=== PATIENT | male | born 1990 | race Hispanic/Latino ===

== ENCOUNTER 2018-01-30 15:10 | Outpatient (CLI) | payer OTHER ==
[2018-01-30 16:35] LABS: Hemoglobin 10.8 g/dL (14.0-18.0); Mean Corpuscular HGB CONC 32.8 g/dL (32.0-36.0); Mean Corpuscular Hemoglobin 30.1 pg (27.0-31.0); Mean Corpuscular Volume 91.6 fl (80.0-94.0); Mean Platelet Volume 7.5 fL (7.4-10.4); Platelet Count 120 thou/uL (130-400); RBC Distribution Width 12.1 % (11.5-14.5); White Blood Cell (WBC) Count 3.9 thou/uL (4.8-10.8)
[2018-01-30 16:54] LABS: Anion Gap 13 mmol/L (10-20); BUN (Urea Nitrogen) 62 mg/dL (8.9-20.6); Calc. Creatinine Clearance 0 mL/min (70-130); Calcium 8.8 mg/dL (7.8-10.44); Carbon Dioxide 19 mmol/L (22-29); Chloride 111 mmol/L (98-107); Estimated GFR-MDRD 11; Glucose 80 mg/dL (70-105); Potassium 6.1 mmol/L (3.5-5.1); Sodium 137 mmol/L (136-145)
== END 2018-01-30 15:11 | disposition home or self-care (01) ==
LOC: LABBT 15:10
PROVIDERS: ATTEND Surgery
DX: Z01.812 Encounter for preprocedural laboratory examination (principal); M32.14 Glomerular disease in systemic lupus erythematosus
CPT/HCPCS: 93005; 93010

== ENCOUNTER 2018-02-01 08:10 | Day surgery (SDC) | payer OTHER ==
[2018-01-30 15:37] VITALS: BMI 18.6
[2018-02-01 09:55] LABS: Potassium 5.6 mmol/L (3.5-5.1)
[2018-02-01] MEDS ORDERED: Bupivacaine/Epinephrine 0.25% 30 ML VIAL ONE (11:32)
[2018-02-01] MEDS ORDERED: Fentanyl 100 MCG/2 ML VIAL ONE (11:38)
[2018-02-01] MEDS ORDERED: CEFAZOLIN/Water 2 GM/20 ML SYRINGE ONE (11:42)
[2018-02-01] MEDS ORDERED: Dexamethasone 20 MG/5 ML VIAL ONE ×2 (13:30)
[2018-02-01] MEDS ORDERED: Ondansetron HCl/PF 4 MG/2 ML Vial ONE (13:30)
[2018-02-01] MEDS ORDERED: PROPOFOL 200 MG/20 ML VIAL ONE (13:30)
[2018-02-01] MEDS ORDERED: Lidocaine 1% PF 5 ML VIAL ONE (13:30)
--- NOTE | 2018-02-01 16:10 | PDOC.OP ---
Operative Note - Operative Note Operative Note: PROCEDURE: Removal of tunneled peritoneal dialysis catheter DATE OF PROCEDURE: 02/01/2018 SURGEON: Ezequiel Carr M.D. PREOPERATIVE DIAGNOSES: Unwanted peritoneal dialysis catheter POSTOPERATIVE DIAGNOSIS: Unwanted peritoneal dialysis catheter HISTORY: Mr. Ewing is a 27-year-old man with lupus nephritis and end-stage renal failure. He was on peritoneal dialysis but decided to stop doing this. His glomerular filtration rate is 11 and continuation of dialysis has been recommended by his city detective but the patient adamantly refuses. He has not flushed or care for his catheter in several months and wishes to have it removed. I explained that this is against my medical recommendation that the patient is adamant that he wants it removed and is no longer going to use it. PROCEDURE IN DETAIL: After informed consent was obtained and appropriate preoperative antibiotics administered, the patient was taken to the operating room. He was placed in supine position and general anesthesia by LMA was administered. He was prepped and draped in standard sterile fashion and local anesthesia was infused the skin and subcutaneous tissues around the peritoneal dialysis catheter. A skin incision was made at the catheter site and dissection carried down to the subcutaneous cuff which was dissected free circumferentially. The cuff was then traced down to the anterior rectus muscle. The anterior rectus muscle sheath was incised anteriorly and the muscle split around the catheter. The internal cuff was identified and dissected free of the muscles and the entire catheter removed. This was confirmed to be intact and normal in appearance and was discarded. The operative site was confirmed to be hemostatic and the anterior rectus sheath reapproximated with 0 Vicryl suture under direct vision. The subcutaneous tissues were irrigated and the incision partially closed with 4-0 Monocryl suture. Iodoform packing was placed in the subcutaneous space and a gauze and Tegaderm dressing placed over the PD catheter site. The patient was extubated and taken to the recovery room in good condition. Estimated blood loss was minimal. There were no complications. There were no specimens.
== END 2018-02-01 14:00 | disposition home or self-care (01) ==
LOC: SDC 08:10
PROVIDERS: ATTEND Surgery
PROC: 0WPG03Z Removal of Infusion Device from Peritoneal Cavity, Open Approach (ICD-10-PCS; principal; 2018-02-01)
DX: Z49.02 Encounter for fitting and adjustment of peritoneal dialysis catheter (principal); M32.14 Glomerular disease in systemic lupus erythematosus; N18.6 End stage renal disease; Z79.899 Other long term (current) drug therapy; Z79.52 Long term (current) use of systemic steroids; Z88.8 Allergy status to other drugs, medicaments and biological substances; Z91.15 Patient's noncompliance with renal dialysis
CPT/HCPCS: 84132; J1100; J2001; J2405; J2704; J3010

== ENCOUNTER 2018-06-06 17:40 | Inpatient (IN) | payer OTHER, SELFPAY ==
[2018-06-06 18:22] LABS: #Lymphocytes 0.3 thou/uL (1.20-3.40); #Monocytes 0.1 thou/uL (0.11-0.59); #Neutrophils 1.1 thou/uL (1.40-6.50); %Basophils 0.5 % (0.0-1.0); %Eosinophils 0.9 % (0.0-10.0); %Lymphocytes 17.3 % (21.0-51.0); %Monocytes 5.8 % (0.0-10.0); %Neutrophils 75.6 % (42.0-75.0); Hemoglobin 7.6 g/dL (14.0-18.0); Mean Corpuscular HGB CONC 36.3 g/dL (32.0-36.0); Mean Corpuscular Hemoglobin 31.3 pg (27.0-31.0); Mean Platelet Volume 9.2 fL (7.4-10.4); Platelet Count 42 thou/uL (130-400); RBC Distribution Width 13.3 % (11.5-14.5); Red Blood Cell (RBC) Count 2.42 mill/uL (4.70-6.10); White Blood Cell (WBC) Count 1.5 thou/uL (4.8-10.8)
[2018-06-06 18:46] LABS: INR-International Normal Ratio 1.1; Prothrombin Time 14.6 SEC (12.0-14.7)
[2018-06-06 18:47] LABS: PTT 33.6 SEC (22.9-36.1)
[2018-06-06 18:55] LABS: ALT (SGPT) 10 U/L (8-55); AST (SGOT) 13 U/L (5-34); Albumin 3.6 g/dL (3.5-5.0); Alkaline Phosphatase 48 U/L (40-150); Bilirubin, Total 0.4 mg/dL (0.2-1.2); Chloride 99 mmol/L (98-107); Glucose 91 mg/dL (70-105); Potassium 5.8 mmol/L (3.5-5.1); Protein, Total 5.6 g/dL (6.0-8.3); Sodium 131 mmol/L (136-145)
--- NOTE | 2018-06-06 18:56 | RAD ---
AP VIEW OF THE CHEST: 06/06/18 INDICATION: Shortness of breath and hemodialysis. COMPARISON: Prior exam dated 04/05/16. FINDINGS: Calcification overlies the lower left hemithorax which is stable. The lungs are otherwise clear. No p leural effusion or pneumothorax is evident. Heart size appears within normal limits. Osseous structur es are unchanged from the comparison. IMPRESSION: No acute cardiopulmonary abnormality. POS: [facility]
[2018-06-06 19:27] LABS: Calcium 5.9 mg/dL (7.8-10.44); Carbon Dioxide Less than 8 mmol/L (22-29)
[2018-06-06 19:49] LABS: BUN (Urea Nitrogen) 211 mg/dL (8.9-20.6)
[2018-06-06 19:52] LABS: Calc. Creatinine Clearance 0 mL/min (70-130); Estimated GFR-MDRD 2
[2018-06-06] MEDS ORDERED: Ondansetron HCl/PF 4 MG/2 ML Vial ONE (19:54)
[2018-06-06 23:01] LABS: Hep B Surf Ag Non-Reactive S/CO (NonReactive)
[2018-06-07] MEDS ORDERED: Ondansetron ODT 4 MG TAB SL PRN (00:40)
[2018-06-07] MEDS ORDERED: Ondansetron HCl/PF 4 MG/2 ML Vial IVP PRN ×2 (00:40→05:15)
[2018-06-07] MEDS ORDERED: Iron Sucrose Complex 200 MG in Sodium Chloride 0.9% 250 ML 250 ML IVPB SCH (00:45)
[2018-06-07] MEDS ORDERED: Bisacodyl 5 MG TAB PO PRN (05:15)
[2018-06-07 07:43] LABS: BUN (Urea Nitrogen) 184 mg/dL (8.9-20.6)
[2018-06-07 07:47] LABS: Band 8 % (5-11); Hemoglobin 6.7 g/dL (14.0-18.0); Lymphocytes 16 % (21-51); MDiff Complete? YES; Mean Corpuscular HGB CONC 35.8 g/dL (32.0-36.0); Mean Corpuscular Hemoglobin 30.7 pg (27.0-31.0); Mean Corpuscular Volume 85.7 fL (78.0-98.0); Mean Platelet Volume 9.8 fL (7.4-10.4); Monocytes 2 % (0-10); Neutrophil 74 % (42-75); PLT Morphology Comment Appears Decreased; Platelet Count 38 thou/uL (130-400); Polychromasia SLIGHT = 2-3 cells (100X) (0-2/hpf); RBC Distribution Width 13.5 % (11.5-14.5); Red Blood Cell (RBC) Count 2.19 mill/uL (4.70-6.10); Schistocytes SLIGHT = 2-5 cells (100X) (0-1/hpf); White Blood Cell (WBC) Count 1.1 thou/uL (4.8-10.8)
[2018-06-07 08:39] LABS: Albumin 3.3 g/dL (3.5-5.0); Anion Gap 24 mmol/L (10-20); Calc. Creatinine Clearance 4 mL/min (70-130); Carbon Dioxide 13 mmol/L (22-29); Chloride 102 mmol/L (98-107); Estimated GFR-MDRD 3; Glucose 122 mg/dL (70-105); Phosphorus 12.6 mg/dL (2.3-4.7); Potassium 4.6 mmol/L (3.5-5.1); Sodium 134 mmol/L (136-145)
--- NOTE | 2018-06-07 11:40 | CON ---
DATE OF CONSULTATION: 06/07/2018 SERVICE: Renal Medicine. HISTORY OF PRESENT ILLNESS: Mr. Ewing is a 27-year-old male with known history of ESRD from lupus nephritis. Patient was previously on peritoneal dialysis, but over time decided to discontinue . So, he has been off dialysis for several months. About 6-8 weeks prior to admission, he started d eveloping nausea and vomiting, generalized malaise. Due to the worsening signs and symptoms, he went to the ER and was wanting to go back to dialysis. Due to the uremic signs and symptoms, BUN of more than 200 and a creatinine more than 25, emergent hemodialysis was done last night. He underwent a 1 -hour hemodialysis. I am currently at the bedside supervising his dialysis. He has undergone 2-hour hemodialysis today. I had a long discussion with this patient. We would defer to go back to perito errol dialysis. REVIEW OF SYSTEMS: Positive for nausea and vomiting. Decreased appetite, decreased energy level, no syncopal episode, no tremors, no asterixis, no diarrhea, no constipation, no abdominal pain, no head ache, no diplopia, no sore throat, no joint pains, no new skin rash, no fever or chills, no shortness of breath. MEDICATIONS: Currently, none. PAST MEDICAL HISTORY: 1. 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 2. End-stage renal disease - in remission. PAST SURGICAL HISTORY: 1. Status post kidney biopsy. 2. Status post thoracentesis of pleural effusion secondary to lupus nephritis. 3. Status post left knee replacement. 4. Status post laparoscopic appendectomy for perforated appendix. SOCIAL HISTORY: The patient lives in [place], is single, and lives with his mother. Education, h igh school. Currently, not working. No history of smoking. No IV drug abuse. Status post multiple blood transfusions. Five siblings. ALLERGIES: None. TRAUMA: None. IMMUNIZATIONS: Unknown. HOSPITALIZATIONS: Please see past medical history. FAMILY HISTORY: Positive family history of lupus - father was on dialysis. PHYSICAL EXAMINATION: VITAL SIGNS: Blood pressure is 139/92, heart rate 87, respiratory rate 14, temperature 97.8, pulse o x 99%. GENERAL EXAM: Awake, alert, comfortable, not in distress. SKIN: Adequate turgor. HEENT: Pale conjunctivae. Anicteric sclerae. NECK: No neck mass, no carotid bruits, no JVD. CHEST: No deformities. LUNGS: Clear breath sounds, no wheezing, no crackles. HEART: Normal sinus rhythm. No murmur, no gallops, no rubs. ABDOMEN: Globular, soft, nontender, no masses. EXTREMITIES: No edema, no deformities. LABORATORY DATA: Laboratories of 06/07/2018, white count 1.1, hemoglobin 6.7, hematocrit 8.8. Sodiu m 134, potassium 4.6, chloride 102, carbon dioxide 13, BUN is 184, creatinine 21, glucose 122, calciu m 6, phosphorus is 12. ASSESSMENT AND PLAN: 1. End-stage renal disease/chronic renal failure - emergent hemodialysis done last night. My plan i s to do a 2-hour hemodialysis today with fluid removal only as tolerated. We will do another dialysi s tomorrow. I have consulted Surgery for placement of a cuffed hemodialysis catheter and a PD cathet er at the same time. 2. Anemia. Start Epogen, p.r.n. blood transfusion. 3. Hyperphosphatemia. Start Renvela and Tums. 4. Hypocalcemia. Start on calcitriol and Tums. 5. Secondary hyperparathyroidism. Recheck PTH. I had a long discussion with the patient regarding compliance with dialysis. He would like to go diana on dialysis. I did encourage him to follow up with the renal transplant program.
[2018-06-07] MEDS: Sevelamer Carbonate 800 MG TAB PO SCH ×2 (12:42→17:04)
[2018-06-07] MEDS: Calcitriol 0.25 MCG CAP PO SCH (12:43)
[2018-06-07] MEDS: Calcium Carbonate 500 MG ChewTAB PO SCH (17:04)
[2018-06-07] MEDS: Epoetin (ESRD) 20,000 UNITS/ML SC SCH (17:04)
--- NOTE | 2018-06-07 17:28 | PDOC.PN ---
- Subjective Encounter Start Date: 06/07/18 Encounter Start Time: 17:26 Mr. Ewing was seen today in follow-up of ESRD. He says he had some nausea last night, but is doing better today. - Objective Resuscitation Status: Resuscitation Status FULL:Full Resuscitation MAR Reviewed: Yes Vital Signs & Weight: Vital Signs (12 hours) Temp Pulse Pulse Resp BP BP Pulse Ox 06/07/18 15:47 98.2 F 79 16 141/94 H 99 06/07/18 12:58 98.1 F 87 18 132/89 06/07/18 12:36 97.9 F 78 18 134/88 06/07/18 11:40 98.4 F 79 16 137/87 98 06/07/18 08:00 97.8 F 87 14 06/07/18 07:47 97.8 F 87 14 139/92 H 99 Weight Admit Weight 131 lb 8 oz Weight 131 lb 8 oz I&O: 06/06/18 06/07/18 06/08/18 06:59 06:59 06:59 Intake Total 0 Balance 0 Result Diagrams: 06/07/18 06:47 06/07/18 06:47 Phys Exam - Physical Examination HEENT: PERRLA Respiratory: no wheezing, no rales, no rhonchi, clear to auscultation bilateral Cardiovascular: RRR, no significant murmur, no rub Gastrointestinal: soft, non-tender, positive bowel sounds Musculoskeletal: no edema Dx/Plan (1) End-stage renal disease needing dialysis Code(s): N18.6 - END STAGE RENAL DISEASE; Z99.2 - DEPENDENCE ON RENAL DIALYSIS Status: Acute (2) Systemic lupus Code(s): M32.9 - SYSTEMIC LUPUS ERYTHEMATOSUS, UNSPECIFIED Status: Acute - Plan * ESRD on dialysis- patient had missed several months of dialysis, and has decided to re-start dialysis * SLE- Quiescent . * Dispo as per Nephrology
[2018-06-08 05:32] LABS: Albumin 3.2 g/dL (3.5-5.0); Anion Gap 19 mmol/L (10-20); Calc. Creatinine Clearance 5 mL/min (70-130); Calcium 5.7 mg/dL (7.8-10.44); Carbon Dioxide 19 mmol/L (22-29); Chloride 100 mmol/L (98-107); Estimated GFR-MDRD 3; Glucose 86 mg/dL (70-105); Phosphorus 9.2 mg/dL (2.3-4.7); Sodium 134 mmol/L (136-145)
[2018-06-08 05:35] LABS: #Lymphocytes 0.2 thou/uL (1.20-3.40); #Monocytes 0.1 thou/uL (0.11-0.59); #Neutrophils 0.9 thou/uL (1.40-6.50); %Lymphocytes 13.5 % (21.0-51.0); %Monocytes 11.3 % (0.0-10.0); %Neutrophils 73.3 % (42.0-75.0); Hemoglobin 8.1 g/dL (14.0-18.0); Mean Corpuscular HGB CONC 35.9 g/dL (32.0-36.0); Mean Corpuscular Hemoglobin 30.8 pg (27.0-31.0); Mean Platelet Volume 9.8 fL (7.4-10.4); Platelet Count 37 thou/uL (130-400); Red Blood Cell (RBC) Count 2.64 mill/uL (4.70-6.10); White Blood Cell (WBC) Count 1.2 thou/uL (4.8-10.8)
[2018-06-08 05:37] LABS: BUN (Urea Nitrogen) 136 mg/dL (8.9-20.6)
--- NOTE | 2018-06-08 08:57 | PRG ---
DATE OF SERVICE: 06/08/2018 SUBJECTIVE: Mr. Ewing is a 27-year-old male who was admitted for uremic signs and symptoms. Hemodialysis has been initiated in the last 2 days. He is feeling better. He was also given him 1 unit of blood transfusion. This morning he feels better. He denies any chest pain or shortness of breath. OBJECTIVE: VITAL SIGNS: Blood pressure 148/88, heart rate 92, respiratory rate 16, temperature 98.1, pulse ox 1 00%. GENERAL: Noted to be awake, comfortable, not in overt distress SKIN: Adequate turgor. HEENT: Slightly pale conjunctivae, anicteric sclerae. NECK: No neck mass, no carotid bruits, no JVD. CHEST: No deformities. LUNGS: Clear breath sounds. No wheezing, no crackles. HEART: Normal sinus rhythm. No murmur, no gallops or rubs. ABDOMEN: Globular, soft, nontender, no masses. EXTREMITIES: No edema, no deformities. MEDICATIONS: 06/08/2018 - Reviewed. LABORATORY: 06/08/2018 - White count 1.2, hemoglobin 8.1, hematocrit 22.7, platelet count 37,000. S odium 134, potassium 4, chloride 100, carbon dioxide 19, BUN 136, creatinine 17, calcium 5.7, phospho alfreda is 9.2. PTH is 1301. ASSESSMENT AND PLAN: 1. Hypocalcemia. Patient started on Tums and calcitriol. Continue to observe, the patient is asymp tomatic. 2. Chronic renal failure/end-stage renal disease - dialysis will be initiated. The patient has french ged his mind and wants to continue with the current dialytic intervention. He stopped his dialysis f or several months thinking he might recover. However, he became symptomatically uremic in the last s everal weeks. We will continue current hemodialysis. I have consulted Surgery for placement of a cu ffed hemodialysis catheter as well as a PD catheter. He does have a temporary femoral dialysis otilia ter. 3. Leukopenia/decreased platelets, this could be related to his underlying lupus. We will try to se t him up with his lupus doctor in [place]. 4. Anemia, continuing Epogen regimen, status post blood transfusion. 5. Hyperphosphatemia, started on Renvela.
[2018-06-08] MEDS: Calcium Carbonate 500 MG ChewTAB PO SCH ×2 (09:37→20:47)
[2018-06-08] MEDS: Sevelamer Carbonate 800 MG TAB PO SCH ×3 (09:37→20:47)
[2018-06-08] MEDS: Calcitriol 0.25 MCG CAP PO SCH (09:37)
[2018-06-08] MEDS ORDERED: Heparin 10,000 UNITS/ 10 ML VIAL ONE (10:00)
--- NOTE | 2018-06-08 11:33 | PDOC.PN ---
- Subjective Encounter Start Date: 06/08/18 Encounter Start Time: 11:32 Mr. Ewing was seen today in follow-up of ESRD and dialysis. He does not have any complaint, but his mother is concerned about a low grade temperature, and about his Lupus. - Objective Resuscitation Status: Resuscitation Status FULL:Full Resuscitation MAR Reviewed: Yes Vital Signs & Weight: Vital Signs (12 hours) Temp Pulse Resp BP Pulse Ox 06/08/18 07:51 98.1 F 92 16 148/88 H 100 06/08/18 03:15 99.2 F 81 16 124/75 100 Weight Admit Weight 131 lb 8 oz Weight 134 lb I&O: 06/07/18 06/08/18 06/09/18 06:59 06:59 06:59 Intake Total 1400 Output Total 275 Balance 1125 Result Diagrams: 06/08/18 04:30 06/08/18 04:30 Phys Exam - Physical Examination HEENT: PERRLA Respiratory: no wheezing, no rales, no rhonchi, clear to auscultation bilateral Cardiovascular: RRR, no significant murmur, no rub Gastrointestinal: soft, non-tender, positive bowel sounds Musculoskeletal: no edema Dx/Plan (1) End-stage renal disease needing dialysis Code(s): N18.6 - END STAGE RENAL DISEASE; Z99.2 - DEPENDENCE ON RENAL DIALYSIS Status: Acute (2) Systemic lupus Code(s): M32.9 - SYSTEMIC LUPUS ERYTHEMATOSUS, UNSPECIFIED Status: Acute - Plan * ESRD- continue dialysis and renal replacement treatment * SLE- he has a pancytopenia- likely from lupus- unsure where is his baseline level- will check a C3 C4, and TALI- he may need Rheumatology consult * He will need to be set up again for Outpatient dialysis since it has been so long since his last dialysis .
[2018-06-08] MEDS ORDERED: CEFAZOLIN/Water 2 GM/20 ML SYRINGE SLOW IVP SCH (14:30)
--- NOTE | 2018-06-08 16:21 | ULT ---
VENOUS DUPLEX SONOGRAM BILATERAL UPPER EXTREMITY WITH VEIN MAPPIN06/08/18 HISTORY: Renal insufficiency. Need for intermediate dialysis access. FINDINGS: Good color and spectral doppler flow are present within the internal jugular and subclavian veins and the brachial veins. Measurements are as follows: RIGHT UPPER EXTREMITY BRACHIAL ARTERY: 4 mm RADIAL ARTERY: 2 mm ULNAR ARTERY: 3 mm CEPHALIC VEIN Proximal Humerus: Not visualized Mid Humerus: Not visualized Distal Humerus: 1 mm Antecubital Fossa: 4 mm Proximal Forearm: 1 mm Mid Forearm: 1 mm Distal Forearm: 1 mm BASILIC VEIN Proximal Humerus: 5 mm Mid Humerus: 4 mm Distal Humerus: 5 mm Antecubital Fossa: 3 mm Proximal Forearm: 2 mm Mid Forearm: 1 mm Distal Forearm: 1 mm LEFT UPPER EXTREMITY BRACHIAL ARTERY: 4 mm RADIAL ARTERY: 1 mm ULNAR ARTERY: 2 mm CEPHALIC VEIN Proximal Humerus: Not visualized Mid Humerus: 2 mm Distal Humerus: 2 mm Antecubital Fossa: 2 mm Proximal Forearm: 1 mm Mid Forearm: 2 mm Distal Forearm: 2 mm BASILIC VEIN Proximal Humerus: 5 mm Mid Humerus: 4 mm Distal Humerus: 5 mm Antecubital Fossa: 3 mm Proximal Forearm: 1 mm Mid Forearm: 2 mm Distal Forearm: 2 mm IMPRESSION: Patent vascular structures within each upper extremity, with measurements as detailed above. POS: [facility]
[2018-06-08] MEDS ORDERED: Calcium Carbonate 500 MG ChewTAB PO SCH (20:45)
[2018-06-09 05:06] LABS: Anion Gap 16 mmol/L (10-20); BUN (Urea Nitrogen) 108 mg/dL (8.9-20.6); Calc. Creatinine Clearance 7 mL/min (70-130); Calcium 6.1 mg/dL (7.8-10.44); Carbon Dioxide 22 mmol/L (22-29); Chloride 100 mmol/L (98-107); Estimated GFR-MDRD 4; Glucose 81 mg/dL (70-105); Potassium 4.3 mmol/L (3.5-5.1); Sodium 134 mmol/L (136-145)
[2018-06-09 05:17] LABS: #Lymphocytes 0.3 thou/uL (1.20-3.40); #Monocytes 0.1 thou/uL (0.11-0.59); #Neutrophils 0.7 thou/uL (1.40-6.50); %Basophils 0.9 % (0.0-1.0); %Lymphocytes 22.8 % (21.0-51.0); %Monocytes 11.6 % (0.0-10.0); %Neutrophils 63.6 % (42.0-75.0); Hemoglobin 8.3 g/dL (14.0-18.0); Mean Corpuscular HGB CONC 35.5 g/dL (32.0-36.0); Mean Corpuscular Hemoglobin 30.7 pg (27.0-31.0); Mean Corpuscular Volume 86.5 fL (78.0-98.0); Mean Platelet Volume 9.5 fL (7.4-10.4); Platelet Count 44 thou/uL (130-400); RBC Distribution Width 12.8 % (11.5-14.5); Red Blood Cell (RBC) Count 2.69 mill/uL (4.70-6.10); White Blood Cell (WBC) Count 1.1 thou/uL (4.8-10.8)
[2018-06-09] MEDS: Tuberculin PPD 0.1 ML VIAL I-DERMAL SCH (07:39)
[2018-06-09] MEDS: Sevelamer Carbonate 800 MG TAB PO SCH ×3 (07:42→17:00)
[2018-06-09] MEDS: Calcium Carbonate 500 MG ChewTAB PO SCH ×2 (07:42→17:00)
[2018-06-09] MEDS: Calcitriol 0.25 MCG CAP PO SCH (07:42)
[2018-06-09] MEDS ORDERED: Heparin 10,000 UNITS/ 10 ML VIAL ONE (08:01)
--- NOTE | 2018-06-09 10:58 | PRG ---
DATE OF SERVICE: 06/09/2018 RENAL MEDICINE SUBJECTIVE: Mr. Ewing is a 27-year-old male who was admitted for uremic signs and symptoms. Dialysis has been initiated. Please note this patient discontinues dialysis for several months. He changed his mind, wanted to go back to dialysis. I am at the bedside supervising his dialysis. He is tolerating said treatment. I have spoken with Dr. Parr for placement of PD catheter and cuffed hemodialysis catheter. No other complaints. He is feeling a little better. PHYSICAL EXAMINATION: VITAL SIGNS: Blood pressure 129/84, heart rate 73, respiratory rate 16, temperature 99.8, pulse ox 9 6%. GENERAL: Awake, alert, supine, comfortable, not in distress. SKIN: Adequate turgor. HEENT: Slightly pale conjunctivae, anicteric sclerae. NECK: No neck mass, no carotid bruits, no JVD. CHEST: No deformities. LUNGS: Clear breath sounds, no wheezing, no crackles. HEART: Normal sinus rhythm. No murmur, no gallops, no rubs. ABDOMEN: Globular, soft, nontender. No masses. EXTREMITIES: No edema, no deformities. MEDICATIONS: Medications of 06/09/2018 was reviewed. LABORATORY DATA: LABORATORY DATA: Laboratories of 06/09/2018; white count , hemoglobin 8.3. S odium 134, potassium 4.3, chloride 100, carbon dioxide 22, BUN 106, creatinine 13.66, calcium 6.1. C3 is 43 - decreased, C4 is 15. Hepatitis B surface antigen is negative. ASSESSMENT AND PLAN: 1. End-stage renal disease, chronic renal failure - patient has reinitiated dialysis. His renal dys function is secondary to lupus nephritis. Continue current daily dialysis. Fluid removal only as to lerated. 2. Anemia p.r.n. blood transfusion. Epogen has been initiated. 4. Renal osteodystrophy - patient on calcitriol and Renvela. 5. Hypocalcemia, on calcium supplementation and calcitriol has been started. 6. Lupus - consider reviewing back his lupus profile again.
--- NOTE | 2018-06-09 11:51 | PDOC.PN ---
- Subjective Encounter Start Date: 06/09/18 Encounter Start Time: 11:49 Mr. Ewing was seen today in follow-up of ESRD and SLE. He says he was a bit anxious about his procedure today, but otherwise he is ok. - Objective Resuscitation Status: Resuscitation Status FULL:Full Resuscitation MAR Reviewed: Yes Vital Signs & Weight: Vital Signs (12 hours) Temp Pulse Resp BP Pulse Ox 06/09/18 08:00 99.8 F H 73 16 06/09/18 07:18 99.8 F H 73 16 129/84 96 06/09/18 00:17 98.3 F 76 18 137/89 97 Weight Admit Weight 131 lb 8 oz Weight 128 lb 4.944 oz I&O: 06/08/18 06/09/18 06/10/18 06:59 06:59 06:59 Intake Total 1400 Output Total 275 Balance 1125 Result Diagrams: 06/09/18 03:52 06/09/18 03:52 Phys Exam - Physical Examination HEENT: PERRLA Respiratory: no wheezing, no rales, no rhonchi Cardiovascular: RRR, no significant murmur, no rub Gastrointestinal: non-tender, positive bowel sounds Musculoskeletal: no edema Dx/Plan (1) End-stage renal disease needing dialysis Code(s): N18.6 - END STAGE RENAL DISEASE; Z99.2 - DEPENDENCE ON RENAL DIALYSIS Status: Acute (2) Systemic lupus Code(s): M32.9 - SYSTEMIC LUPUS ERYTHEMATOSUS, UNSPECIFIED Status: Acute - Plan * ESRD- patient is being prepared for outpatient dialysis * SLE- he has pancytopenia, but otherwise is clinically stable, there are no signs of infection or bleeding. I was not able to find a Slater Apprentice on staff that accepts his Insurance, so the evaluation will have to be postponed until he is discharged. * Plan to have AV fistula placed .
[2018-06-09 12:02] LABS: HBSAg Index 0.18 S/CO (0-0.99); Hep B Core Total Ab Non-Reactive (NonReactive); Hep B Core Total Index 0.08 S/CO (0-0.79); Hep B Surf Ag Non-Reactive S/CO (NonReactive); Hep C IgG Ab Non-Reactive (NonReactive); Hep C Index 0.12 S/CO (0-0.79)
[2018-06-09] MEDS ORDERED: CEFAZOLIN/Water 2 GM/20 ML SYRINGE ONE (12:48)
[2018-06-09] MEDS ORDERED: Lidocaine 1% PF 5 ML VIAL ONE (13:14)
[2018-06-09] MEDS ORDERED: PROPOFOL 200 MG/20 ML VIAL ONE (13:14)
--- NOTE | 2018-06-09 14:51 | HP ---
HISTORY OF PRESENT ILLNESS: Greg Ewing is a 27-year-old black male lupus nephritis. He has been on dialysis previously. Against Dr. Carr's advice, he took out a peritoneal dialysis catheter as he wanted to stop dialysis. He now presents uremic, in need of urgent dialysis, has had a temporary dialysis catheter been asked to see him by Dr. Causey regarding placement of a peritoneal dialysis catheter or hemodialysis catheter. We will plan that today. ALLERGIES: PHENERGAN. TOBACCO: None. ALCOHOL: Socially. MEDICATIONS: None on admission. PAST MEDICAL HISTORY: Lupus nephritis, end-stage renal disease. PAST SURGICAL HISTORY: Laparoscopic appendectomy, knee replacement, thoracentesis, pleural effusion and peritoneal dialysis catheter placed. Hemodialysis catheter removed. The patient was in [facility], single, lives with his family. He is not working. SOCIAL HISTORY: Tobacco none. Alcohol none. PHYSICAL EXAMINATION: HEENT: Unremarkable. LUNGS: Clear to auscultation. CARDIAC: Regular rate and rhythm without murmur or gallop. ABDOMEN: Soft, nontender, no masses. Scar per prior history. EXTREMITIES: Unremarkable. ASSESSMENT AND PLAN: End-stage renal disease. PLAN: 1. Plan placement of hemodialysis catheter and cuffed tunnel and a laparoscopic peritoneal dialysis catheter. Risk of infection, bleeding, reoperation explained and he consents. 2. Ultrasound vein mapping reveals poor veins for primary fistula or graft.
[2018-06-09] MEDS ORDERED: Bupivacaine HCl 0.5%/Epinephrine 1:200,000/PF 30 ml Vial ONE (15:12)
[2018-06-09] MEDS ORDERED: Lidocaine 2% 10 ML INJ ONE (15:12)
[2018-06-09] MEDS ORDERED: Heparin 10,000 UNITS/1 ML VIAL ONE (15:12)
[2018-06-09] MEDS ORDERED: Bupivacaine/Epinephrine 0.25% 30 ML VIAL ONE (15:12)
[2018-06-09] MEDS ORDERED: Sodium Chloride 0.9% 20 ML ONE (15:12)
[2018-06-09] MEDS ORDERED: Fentanyl 100 MCG/2 ML VIAL ONE (15:16)
[2018-06-09] MEDS ORDERED: HYDROmorphone 2 MG/ML VIAL SLOW IVP PRN (16:33)
[2018-06-09] MEDS ORDERED: Meperidine HCl/PF 25 MG/ML VIAL SLOW IVP PRN (16:33)
[2018-06-09] MEDS ORDERED: traMADol HCl 50 MG TAB PO PRN (17:18)
--- NOTE | 2018-06-09 17:32 | RAD ---
PORTABLE UPRIGHT FRONTAL CHEST RADIOGRAPH 06/09/18 COMPARISON: 06/06/18 HISTORY: Evaluate chest following hemodialysis catheter placement. FINDINGS: New right sided vascular catheter present, distal tip overlying the region of the cavoatrial junction . There is no pneumothorax or pleural fluid. No focal consolidation or alveolar edema. IMPRESSION: No acute findings. POS: [facility]
[2018-06-09 19:02] LABS: Hep B Surf AB Indeterminate (NonReactive)
[2018-06-09 19:03] LABS: HBSAB Concentration 11.63 mIU/mL
--- NOTE | 2018-06-09 20:34 | OP ---
DATE OF OPERATION: 06/09/2018 PREOPERATIVE DIAGNOSES: End-stage renal disease, lupus poor veins by ultrasound vein mapping, remove d peritoneal dialysis catheter against advice months ago. PROCEDURE: Laparoscopic peritoneal dialysis catheter, right IJ hemodialysis catheter placed. Ultras ound fluoroscopy used. SURGEON: Nils Parr M.D. ANESTHESIA: General. Local 0.25% Marcaine with epinephrine 30 mL, mixed with 2% Xylocaine 10 mL, 25 mL volume mixture used. PROCEDURE IN DETAIL: The patient was taken to the operating room where under general anesthesia, nec k, chest and abdomen prepared with ChloraPrep, draped in routine fashion. Bilateral subcostal far la teral incision made and pneumoperitoneum to 15 mmHg obtained with the Veress needle, replacing it wit h a 5 port laparoscope inserted. Left contralateral 5 mm port placed under laparoscopic visualizatio n. There were omental adhesions to the pelvis from prior open appendectomy. A stab incision made at the planned exit site in the left lower quadrant and a counter incision made umbilical level, an 8 m m port placed percutaneously into the rectus sheath directed caudally penetrating the abdominal wall caudally inserting the instrument and laparoscopic adhesiolysis undertaken, taking down the omentum f rom the pelvis using the LigaSure. This mobilized the omentum and laparoscopic omentopexy was perfor med fastened to the upper abdominal wall with transabdominal wall fixation suture 0 Vicryl GraNee nee dle. Peritoneal dialysis catheter placed without 8 mm port and the inner cuff placed in the rectus s dorothea and 8 mm port removed, Ana dissector placed through the planned exit site into the counter incision, grasping the catheter and pulled the catheter out the exit site. The external cuff just be neath the skin exit site. Catheter was then fitted with flushing device and flushed with heparinized saline solution 1007 revealed 10 meals. Subcutaneous tissues approximated with 3-0 Monocryl, skin w ith subdermal 4-0 Monocryl. DermaGlue and sterile dressings applied. Good hemostasis noted. Irriga nt evacuated. All pneumoperitoneum evacuated. All excess removed and all skin incisions approximate d with interrupted subdermal 4-0 Monocryl and DermaGlue applied. Noted above procedure had laparosco pic adhesiolysis, laparoscopic omentopexy.
[2018-06-09] MEDS: traMADol HCl 50 MG TAB PO PRN (21:17)
[2018-06-10] MEDS: Cyclobenzaprine 10 MG TAB PO PRN (02:48)
[2018-06-10] MEDS ORDERED: Sodium Chloride 0.9% 10 ML ONE (08:21)
[2018-06-10] MEDS: Calcium Carbonate 500 MG ChewTAB PO SCH ×2 (09:15→16:32)
[2018-06-10] MEDS: Sevelamer Carbonate 800 MG TAB PO SCH ×3 (09:15→16:32)
[2018-06-10] MEDS: Calcitriol 0.25 MCG CAP PO SCH (09:16)
[2018-06-10] MEDS: traMADol HCl 50 MG TAB PO PRN ×2 (09:17→20:18)
--- NOTE | 2018-06-10 12:11 | PDOC.PN ---
- Subjective Encounter Start Date: 06/10/18 Encounter Start Time: 12:09 Mr. Ewing was seen today in follow-up of ESRD. He is a bit sore from surgery, but medina not have any complaints otherwise. - Objective Resuscitation Status: Resuscitation Status FULL:Full Resuscitation MAR Reviewed: Yes Vital Signs & Weight: Vital Signs (12 hours) Temp Pulse Resp BP Pulse Ox 06/10/18 07:27 98.7 F 79 16 128/81 96 06/10/18 04:17 98.6 F 68 16 125/85 98 06/10/18 00:19 98.3 F 76 16 118/76 97 Weight Admit Weight 131 lb 8 oz Weight 127 lb 10.362 oz I&O: 06/09/18 06/10/18 06/11/18 06:59 06:59 06:59 Intake Total 1230 Balance 1230 Result Diagrams: 06/09/18 03:52 06/09/18 03:52 Phys Exam - Physical Examination HEENT: PERRLA Respiratory: no wheezing, no rales, no rhonchi, clear to auscultation bilateral Cardiovascular: RRR, no significant murmur, no rub Gastrointestinal: soft + mild diffuse tenderness, no rebound or guarding Musculoskeletal: no edema Dx/Plan (1) End-stage renal disease needing dialysis Code(s): N18.6 - END STAGE RENAL DISEASE; Z99.2 - DEPENDENCE ON RENAL DIALYSIS Status: Acute (2) Systemic lupus Code(s): M32.9 - SYSTEMIC LUPUS ERYTHEMATOSUS, UNSPECIFIED Status: Acute - Plan * ESRD- continue Dialysis and he is being prepared for Outpatient dialysis * SLE- stable- will antonieta outpatient Rheumatology follow-up..
[2018-06-10 17:34] LABS: ANA Symphony (Qualitative) POSITIVE (Negative); CENP IgG Antibody 0.4 EliAU/mL (<7 Negative); Jo-1 IgG Antibody Less than 0.3 EliAU/mL (<7 Negative); RNP70 IgG Antibody Less than 0.3 EliAU/mL (<7 Negative); Smith D IgG Antibody 1.2 EliAU/mL (<7 Negative); dsDNA IgG Antibody Greater than 379.0 IU/mL (<10 Negative)
[2018-06-10 17:43] LABS: EliA Thy New Method **** NEW METHOD ****; EliA Vaculitis New Method **** NEW METHOD ****; Mitochondrial Ab 2.1 U/mL (<4 Negative)
[2018-06-11] MEDS: Acetaminophen 500 MG TAB PO PRN ×2 (05:48→16:34)
[2018-06-11] MEDS ORDERED: Vancomycin HCl 1 GM in Premix Bag 1 BAG IVPB SCH (06:30)
[2018-06-11] MEDS: Calcium Carbonate 500 MG ChewTAB PO SCH ×2 (08:26→16:34)
[2018-06-11] MEDS: Sevelamer Carbonate 800 MG TAB PO SCH ×3 (08:27→16:34)
[2018-06-11] MEDS: Calcitriol 0.25 MCG CAP PO SCH (08:27)
[2018-06-11] MEDS: Tuberculin PPD 0.1 ML VIAL I-DERMAL SCH (08:45)
--- NOTE | 2018-06-11 09:08 | RAD ---
PORTABLE CHEST: HISTORY: Fever. FINDINGS: Lungs are clear. Dual-lumen central line overlies the SVC. Vascular markings are normal. Heart siz e is within normal range. IMPRESSION: No acute abnormality. POS: [facility]
--- NOTE | 2018-06-11 12:27 | PRG ---
DATE OF SERVICE: 06/11/2018 SERVICE: Renal Medicine. SUBJECTIVE: Mr. Ewing is a 27-year-old male who was admitted for uremic signs and symptoms. Hemodialysis had been initiated. In the interim, a cuffed hemodialysis catheter as well as a PD cat heter was placed by Dr. Parr. This morning, he voices no new complaints. His appetite is much imp roved. He denies any nausea or vomiting. PHYSICAL EXAMINATION: VITAL SIGNS: Blood pressure 142/95, heart rate 118, respiratory rate 18, temperature 99.8, pulse ox 95%. GENERAL: Awake, alert, comfortable, not in distress. SKIN: Adequate turgor. HEENT: He has pinkish conjunctivae, anicteric sclerae. NECK: No neck mass, no carotid bruits, no JVD. CHEST: No deformities. LUNGS: Clear breath sounds. HEART: Normal sinus rhythm. No murmur, no gallops, no rubs. ABDOMEN: Globular, soft, nontender, no masses. EXTREMITIES: No edema, no deformities. He does have a PD catheter in the abdomen. MEDICATIONS: Medications of 06/11/2018 was reviewed. LABORATORY DATA: Laboratories of 06/09/2018, BUN 108, creatinine 13.66. White count 1.1, hemoglobin 8.3, hematocrit 23.3, platelet count 44,000. ASSESSMENT AND PLAN: 1. Leukopenia/thrombocytopenia -- this could be from his underlying lupus. Repeat lupus profile blanca wed his anti-dsDNA is greater than 379. In addition, his C3 was also noted to be decreased as well a s the C4. He will need Rheumatology consult for initiation of his lupus meds -- ? CellCept. 2. End-stage renal disease -- continue hemodialysis regimen. I have scheduled him for tomorrow a di alysis session. 3. Anemia on weekly Epogen, p.r.n. blood transfusion. 4. Secondary hyperparathyroidism, on calcitriol. Agree with current management.
--- NOTE | 2018-06-11 15:00 | PDOC.PN ---
- Subjective Encounter Start Date: 06/11/18 Encounter Start Time: 15:35 Subjective: no complains, understand he need continued dialysis - Objective Resuscitation Status: Resuscitation Status FULL:Full Resuscitation MAR Reviewed: Yes Vital Signs & Weight: Vital Signs (12 hours) Temp Pulse Resp BP Pulse Ox 06/11/18 11:31 99.2 F 102 H 16 129/87 96 06/11/18 08:00 99.8 F H 118 H 18 06/11/18 07:31 99.8 F H 118 H 18 142/95 H 95 06/11/18 05:00 102.4 F H Weight Admit Weight 131 lb 8 oz Weight 126 lb 1.671 oz I&O: 06/10/18 06/11/18 06/12/18 06:59 06:59 06:59 Intake Total 1230 1320 360 Output Total 40 Balance 1230 1280 360 Result Diagrams: 06/09/18 03:52 06/09/18 03:52 Phys Exam - Physical Examination HEENT: PERRLA, moist MMs, sclera anicteric, TM's clear, oral pharynx no lesions , 2+ tonsils right IJ dialysis catheter Neck: no nodes, no JVD, supple, full ROM Respiratory: no wheezing, no rales, no rhonchi, wheezing present, clear to auscultation bilateral Cardiovascular: RRR, no significant murmur, no rub, gallop, irregular Gastrointestinal: soft, non-tender, no distention, positive bowel sounds +PD Catheter Musculoskeletal: no edema, pulses present Neurological: non-focal, normal sensation, moves all 4 limbs Lymphatic: no nodes Psychiatric: normal affect, A&O x 3 Dx/Plan (1) End-stage renal disease needing dialysis Code(s): N18.6 - END STAGE RENAL DISEASE; Z99.2 - DEPENDENCE ON RENAL DIALYSIS Status: Acute (2) Systemic lupus Code(s): M32.9 - SYSTEMIC LUPUS ERYTHEMATOSUS, UNSPECIFIED Status: Acute - Plan S/P PD catheter placement Presently dialysis through right IJ catheter OP follow up for SLE with a Pheumatologist * .
[2018-06-12] MEDS: Acetaminophen 500 MG TAB PO PRN (00:56)
[2018-06-12 05:18] LABS: Anion Gap 20 mmol/L (10-20); BUN (Urea Nitrogen) 103 mg/dL (8.9-20.6); Calc. Creatinine Clearance 6 mL/min (70-130); Calcium 7.2 mg/dL (7.8-10.44); Carbon Dioxide 20 mmol/L (22-29); Chloride 97 mmol/L (98-107); Estimated GFR-MDRD 4; Glucose 117 mg/dL (70-105); Potassium 4.6 mmol/L (3.5-5.1); Sodium 132 mmol/L (136-145)
[2018-06-12 05:19] LABS: #Lymphocytes 0.2 thou/uL (1.20-3.40); #Monocytes 0.2 thou/uL (0.11-0.59); #Neutrophils 3.7 thou/uL (1.40-6.50); %Basophils 0.3 % (0.0-1.0); %Eosinophils 0.2 % (0.0-10.0); %Lymphocytes 5.5 % (21.0-51.0); %Monocytes 4.5 % (0.0-10.0); %Neutrophils 89.5 % (42.0-75.0); Mean Corpuscular Volume 88.6 fL (78.0-98.0); Mean Platelet Volume 8.5 fL (7.4-10.4); Platelet Count 78 thou/uL (130-400); RBC Distribution Width 12.7 % (11.5-14.5); Red Blood Cell (RBC) Count 1.93 mill/uL (4.70-6.10); White Blood Cell (WBC) Count 4.2 thou/uL (4.8-10.8)
[2018-06-12] MEDS: Sevelamer Carbonate 800 MG TAB PO SCH ×3 (08:04→17:51)
[2018-06-12] MEDS: Calcium Carbonate 500 MG ChewTAB PO SCH ×3 (08:04→17:51)
--- NOTE | 2018-06-12 08:41 | PRG ---
DATE OF SERVICE: 06/12/2018 SERVICE: Renal Medicine. SUBJECTIVE: Mr. Ewing is a 27-year-old male, who was admitted for uremia. He underwent moustapha gent hemodialysis. I am at the bedside, currently supervising his dialysis. He has a cuffed hemodia lysis catheter placed. In addition, he had a PD catheter placed also by Dr. Parr. No new complain ts today. PHYSICAL EXAMINATION: VITAL SIGNS: Blood pressure is 124/83, heart rate 94, temperature 98.3, respiratory rate 18, pulse o x 96%. GENERAL EXAM: Awake, alert, comfortable, not in distress. SKIN: Adequate turgor. HEENT: He has pale conjunctivae. Anicteric sclerae. NECK: No neck mass, no carotid bruits, no JVD. CHEST: No deformities. LUNGS: Clear breath sounds. HEART: Normal sinus rhythm. No murmur, no gallops, no rubs. ABDOMEN: Globular, soft, nontender, no masses. EXTREMITIES: No edema, no deformities. He has a PD catheter in his belly. Medications of 06/12/2018 reviewed. LABORATORY DATA: Laboratories of 06/12/2018, white count 4.2, hemoglobin is 4.0, hematocrit 17.1. S odium 132, potassium 4.6, chloride 97, carbon dioxide 20, BUN 103, creatinine 14.94, calcium 7.2, glu cose 117. Intact PTH 1301. ASSESSMENT AND PLAN: 1. Anemia, p.r.n. blood transfusion - we will transfuse 2 units of packed red blood cells today. Co ntinue weekly Epogen. 2. Secondary hyperparathyroidism, on calcitriol. 3. End-stage renal disease, stable. We will continue current Tuesday, Tuesday, Tuesday hemodialysis . We will do a 4-hour hemodialysis today. Fluid removal as tolerated.
[2018-06-12] MEDS ORDERED: Heparin 10,000 UNITS/ 10 ML VIAL ONE (09:00)
[2018-06-12] MEDS: Calcitriol 0.25 MCG CAP PO SCH (13:02)
[2018-06-12] MEDS ORDERED: Polyethylene Glycol 3350 17 GM Packet PO PRN (15:33)
--- NOTE | 2018-06-12 15:35 | PDOC.PN ---
- Subjective Encounter Start Date: 06/12/18 (f/u ESRD) Encounter Start Time: 15:34 Subjective: Pt c/o n/v at end of dialysis and also last night. No BM for a -: week, some abd pain but was able to eat. Has femoral dialysis -: cath and asking when it can come out. - Objective Resuscitation Status: Resuscitation Status FULL:Full Resuscitation Vital Signs & Weight: Vital Signs (12 hours) Temp Pulse Resp BP Pulse Ox 06/12/18 13:00 100.4 F H 106 H 16 124/83 97 06/12/18 08:00 98.3 F 94 18 06/12/18 07:56 98.3 F 94 18 124/83 96 06/12/18 04:00 99.4 F 93 94 L Weight Admit Weight 131 lb 8 oz Weight 126 lb 15.78 oz I&O: 06/11/18 06/12/18 06/13/18 06:59 06:59 06:59 Intake Total 1320 3390 0 Output Total 40 900 Balance 1280 2490 0 Result Diagrams: 06/12/18 04:19 06/12/18 04:19 Phys Exam - Physical Examination Constitutional: NAD Respiratory: no wheezing, no rales, no rhonchi Cardiovascular: RRR, no significant murmur Gastrointestinal: soft, no distention, positive bowel sounds ttp throughout, no rebound or palpable abnormalities Musculoskeletal: no edema Neurological: non-focal Psychiatric: normal affect Skin: no rash Dx/Plan (1) End-stage renal disease needing dialysis Code(s): N18.6 - END STAGE RENAL DISEASE; Z99.2 - DEPENDENCE ON RENAL DIALYSIS Status: Chronic (2) Systemic lupus Code(s): M32.9 - SYSTEMIC LUPUS ERYTHEMATOSUS, UNSPECIFIED Status: Chronic Qualifiers: Systemic lupus erythematosus organ involvement: glomerular disease (3) Pancytopenia Code(s): D61.818 - OTHER PANCYTOPENIA Status: Acute - Plan * D/w Dr. Causey - can remove femoral dialysis catheter. Follow fever curve - hold on abx as cx negative at 24 hours * for abd pain, will check XR * add bowel meds - scheduled and prn * * dvt prophy - ambulatory * gi prophy - not indicated * code status full * * pt waiting for placement with dialysis for discharge, and cultures at 72 hours * reviewed plan of care with patient and RN, no questions or further needs at end of eval.
--- NOTE | 2018-06-12 20:15 | RAD ---
TWO VIEW ABDOMEN SERIES: 06/12/18 INDICATION: Abdominal pain, fever. FINDINGS: There is a large volume of retained fecal material of the colon. Coiled catheter tubing overlies the left lower quadrant and traverses within the pelvis to the right of midline. There is a right femoral vascular catheter in place. No free air is seen beneath the hemidiaphragms on the provided upright v iew. There is a nonspecific bowel gas pattern. IMPRESSION: 1. No free air. 2. Large volume of retained fecal material in the colon. POS: [facility]
[2018-06-12] MEDS: Docusate Sodium 100 MG/10 ML UDCUP PO SCH (20:50)
[2018-06-13] MEDS: Acetaminophen 500 MG TAB PO PRN (01:51)
[2018-06-13 08:13] LABS: #Lymphocytes 0.3 thou/uL (1.20-3.40); #Monocytes 0.2 thou/uL (0.11-0.59); #Neutrophils 3.8 thou/uL (1.40-6.50); %Eosinophils 0.2 % (0.0-10.0); %Lymphocytes 6.4 % (21.0-51.0); %Monocytes 5.3 % (0.0-10.0); %Neutrophils 88.1 % (42.0-75.0); Hemoglobin 8.3 g/dL (14.0-18.0); Mean Corpuscular HGB CONC 34.8 g/dL (32.0-36.0); Mean Corpuscular Hemoglobin 31.2 pg (27.0-31.0); Mean Corpuscular Volume 89.6 fL (78.0-98.0); Platelet Count 84 thou/uL (130-400); RBC Distribution Width 12.6 % (11.5-14.5); Red Blood Cell (RBC) Count 2.67 mill/uL (4.70-6.10); White Blood Cell (WBC) Count 4.3 thou/uL (4.8-10.8)
--- NOTE | 2018-06-13 08:37 | PRG ---
DATE OF SERVICE: 06/13/2018 SUBJECTIVE: Mr. Ewing is a 27-year-old man with known history of ESRD and currently on tete ntenance hemodialysis. The patient voices no new complaints today, he is feeling better. He receive d 2 units of packed RBC with dialysis yesterday. No other complaints. PHYSICAL EXAMINATION: VITAL SIGNS: Blood pressure is 121/80, heart rate 78, respiratory rate 16, temperature 97.9, pulse o ximetry 95%. GENERAL: Noted to be awake, alert, comfortable, not in distress SKIN: Adequate turgor. HEENT: Slightly pale conjunctivae, anicteric sclerae. NECK: No neck mass, no carotid bruits, no JVD. CHEST: No deformities. LUNGS: Clear breath sounds, no wheezing, no crackles. HEART: Normal sinus rhythm. No murmur, no gallops or rubs. ABDOMEN: Globular, soft, nontender. No masses. EXTREMITIES: No edema, no deformities. Positive for PD catheter. MEDICATIONS: 06/13/2018 - Reviewed. LABORATORY: 06/13/2018 - CBC pending. ASSESSMENT: 1. End-stage renal disease, continuing Tuesday, Tuesday, Tuesday hemodialysis. We will train with p eritoneal dialysis once the patient is in the outpatient setting. We are awaiting outpatient dialysi s placement with this patient. 2. Anemia, continuing weekly Epogen, p.r.n. blood transfusion. He received 2 units of packed RBC. 3. Systemic lupus erythematosus - most recent serology showed activity with the patient's lupus. He tells me that he is no longer following up with his lupus Dr. due to the fact that he lost his insur ance. I did ask him for the reason. He tells me he never renewed the application form for his Medic aid. My concern is that even if the patient is initiated with CellCept at this time he will not be able to afford this medication as an outpatient. We will try first to see if we can get his insurance back. Recheck base met and CBC in the a.m.
[2018-06-13] MEDS: Calcitriol 0.25 MCG CAP PO SCH (10:10)
[2018-06-13] MEDS: Sevelamer Carbonate 800 MG TAB PO SCH ×3 (10:10→18:01)
[2018-06-13] MEDS: Calcium Carbonate 500 MG ChewTAB PO SCH ×2 (10:11→18:02)
[2018-06-13] MEDS: Docusate Sodium 100 MG/10 ML UDCUP PO SCH ×2 (10:12→20:27)
--- NOTE | 2018-06-13 12:26 | PDOC.PN ---
- Subjective Encounter Start Date: 06/13/18 (f/u esrd) Encounter Start Time: 12:24 Subjective: pt reports resolution of abd pain. States energy is better. -: denies any complaints or concerns. - Objective Resuscitation Status: Resuscitation Status FULL:Full Resuscitation Vital Signs & Weight: Vital Signs (12 hours) Temp Pulse Resp BP Pulse Ox 06/13/18 07:26 97.9 F 78 16 121/80 95 06/13/18 04:00 99.0 F 06/13/18 01:00 100.9 F H Weight Admit Weight 131 lb 8 oz Weight 125 lb 1 oz I&O: 06/12/18 06/13/18 06/14/18 06:59 06:59 06:59 Intake Total 3390 1910 Output Total 900 2800 Balance 2490 -890 Result Diagrams: 06/13/18 07:49 06/12/18 04:19 Phys Exam - Physical Examination Constitutional: NAD Respiratory: no wheezing, no rales, no rhonchi Cardiovascular: RRR, no significant murmur Gastrointestinal: soft, non-tender, no distention, positive bowel sounds Musculoskeletal: no edema right femoral cath removed, dressing clean/dry Neurological: non-focal, moves all 4 limbs Psychiatric: normal affect Skin: no rash Dx/Plan (1) End-stage renal disease needing dialysis Code(s): N18.6 - END STAGE RENAL DISEASE; Z99.2 - DEPENDENCE ON RENAL DIALYSIS Status: Chronic (2) Systemic lupus Code(s): M32.9 - SYSTEMIC LUPUS ERYTHEMATOSUS, UNSPECIFIED Status: Chronic Qualifiers: Systemic lupus erythematosus organ involvement: glomerular disease (3) Pancytopenia Code(s): D61.818 - OTHER PANCYTOPENIA Status: Acute - Plan * Awaiting dialysis placement - Dr. Causey/Case management working on this * Fever - curve is decreasing and cultures negative, hold abx * abd pain secondary to constipation resolved * case management consult for assistance with returning to medicaid so that pt can f/u with Rheumatology and obtain meds for lupus * * dvt prophy - ambulatory * gi prophy - not indicated * code status full * * pt waiting for placement with dialysis for discharge, and cultures at 72 hours * reviewed plan of care with patient and RN, no questions or further needs at end of eval.
[2018-06-13] MEDS: Cyclobenzaprine 10 MG TAB PO PRN (20:27)
[2018-06-14] MEDS: traMADol HCl 50 MG TAB PO PRN (04:01)
[2018-06-14] MEDS: Acetaminophen 500 MG TAB PO PRN (04:01)
[2018-06-14 05:29] LABS: #Lymphocytes 0.2 thou/uL (1.20-3.40); #Monocytes 0.2 thou/uL (0.11-0.59); #Neutrophils 3.1 thou/uL (1.40-6.50); %Basophils 0.2 % (0.0-1.0); %Eosinophils 0.6 % (0.0-10.0); %Lymphocytes 6.8 % (21.0-51.0); %Monocytes 4.6 % (0.0-10.0); %Neutrophils 87.7 % (42.0-75.0); Hemoglobin 8.2 g/dL (14.0-18.0); Mean Corpuscular HGB CONC 34.8 g/dL (32.0-36.0); Mean Corpuscular Hemoglobin 31.4 pg (27.0-31.0); Mean Platelet Volume 8.3 fL (7.4-10.4); Platelet Count 106 thou/uL (130-400); RBC Distribution Width 12.4 % (11.5-14.5); Red Blood Cell (RBC) Count 2.62 mill/uL (4.70-6.10); White Blood Cell (WBC) Count 3.5 thou/uL (4.8-10.8)
[2018-06-14 05:49] LABS: Anion Gap 20 mmol/L (10-20); BUN (Urea Nitrogen) 78 mg/dL (8.9-20.6); Calc. Creatinine Clearance 8 mL/min (70-130); Calcium 7.8 mg/dL (7.8-10.44); Carbon Dioxide 23 mmol/L (22-29); Chloride 95 mmol/L (98-107); Estimated GFR-MDRD 6; Glucose 102 mg/dL (70-105); Potassium 3.6 mmol/L (3.5-5.1); Sodium 134 mmol/L (136-145)
--- NOTE | 2018-06-14 08:31 | PRG ---
DATE OF SERVICE: 06/14/2018 SUBJECTIVE: Mr. Ewing is a 27-year-old male with ESRD and currently on maintenance hemodialy sis. I am at the bedside supervising his dialysis. He has no new complaints. He denies any chest p ain, shortness of breath. He is feeling better after the blood transfusion 2 days ago. PHYSICAL EXAMINATION: VITAL SIGNS: Blood pressure is 122/81, heart rate 80, respiratory 16, temperature 98.2, pulse ox 96% . GENERAL: Noted to be awake, alert, comfortable, not in overt distress. SKIN: Adequate turgor. HEENT: He has slightly pale conjunctivae, anicteric sclerae. NECK: No neck mass, no carotid bruits, no JVD. CHEST: No deformities. LUNGS: Clear breath sounds. HEART: Normal sinus rhythm. No murmur, no gallops, no rubs. ABDOMEN: Globular, soft, nontender, no masses. EXTREMITIES: No edema. Positive for PD catheter in the abdomen. MEDICATIONS: 06/14/2018 - Reviewed. LABORATORY DATA: 06/14/2018 - White count 3.5, hemoglobin 8.2. Sodium 134, potassium 3.6, chloride 95, carbon dioxide 23, BUN 78, creatinine 10.9, glucose 102, calcium 7.8. ASSESSMENT AND PLAN: 1. End-stage renal disease, currently tolerating hemodialysis. Fluid removal only as tolerated. We are awaiting outpatient dialysis placement. He is interested in pursuing peritoneal dialysis. We w ill train once he is in the outpatient setting. 2. Anemia - p.r.n. blood transfusion. Continue weekly Epogen, add ferrous sulfate today. 3. Secondary hyperparathyroidism, on calcitriol. 4. Hyperphosphatemia, Renvela has been started. 5. Hypocalcemia slowly improving. I agree with current management.
[2018-06-14] MEDS: Sevelamer Carbonate 800 MG TAB PO SCH ×3 (12:27→17:50)
[2018-06-14] MEDS: Calcium Carbonate 500 MG ChewTAB PO SCH ×2 (12:27→17:50)
[2018-06-14] MEDS: Calcitriol 0.25 MCG CAP PO SCH (12:28)
[2018-06-14] MEDS: Docusate Sodium 100 MG/10 ML UDCUP PO SCH (12:29)
[2018-06-14] MEDS: Ferrous Sulfate 325 MG TAB PO SCH (17:49)
[2018-06-14] MEDS: Epoetin (ESRD) 20,000 UNITS/ML SC SCH (19:01)
[2018-06-14] MEDS: Docusate 100 MG CAP PO SCH (20:07)
--- NOTE | 2018-06-14 22:24 | PDOC.PN ---
- Subjective Encounter Start Date: 06/14/18 Encounter Start Time: 15:00 Subjective: nsg notes rev, jocelin ovn, no new c/o - Objective Resuscitation Status: Resuscitation Status FULL:Full Resuscitation Vital Signs & Weight: Vital Signs (12 hours) Temp Pulse Resp BP BP Pulse Ox 06/14/18 20:00 98.8 F 90 20 123/82 97 06/14/18 12:24 97.4 F L 80 18 126/90 99 Weight Admit Weight 131 lb 8 oz Weight 125 lb 1.6 oz I&O: 06/13/18 06/14/18 06/15/18 06:59 06:59 06:59 Intake Total 1910 800 Output Total 2800 Balance -890 800 Result Diagrams: 06/14/18 04:35 06/14/18 04:35 Phys Exam - Physical Examination Constitutional: NAD lying in bed HEENT: moist MMs Respiratory: no wheezing, no rales, no rhonchi, clear to auscultation bilateral Cardiovascular: RRR, no rub Gastrointestinal: soft, positive bowel sounds Musculoskeletal: no edema, pulses present Neurological: moves all 4 limbs Psychiatric: normal affect, A&O x 3 Dx/Plan - Plan (1) End-stage renal disease needing dialysis Code(s): N18.6 - END STAGE RENAL DISEASE; Z99.2 - DEPENDENCE ON RENAL DIALYSIS Status: Chronic pending placement for HD (2) Systemic lupus Code(s): M32.9 - SYSTEMIC LUPUS ERYTHEMATOSUS, UNSPECIFIED Status: Chronic Qualifiers: Systemic lupus erythematosus organ involvement: glomerular disease stable (3) Pancytopenia Code(s): D61.818 - OTHER PANCYTOPENIA Status: Acute stable - Plan * Fever - curve is decreasing and cultures negative, hold abx * abd pain secondary to constipation resolved * * dvt prophy - ambulatory Review of Systems - Medications/Allergies Allergies/Adverse Reactions: Allergies Allergy/AdvReac Type Severity Reaction Status Date / Time promethazine [From Phenergan] Allergy Verified 06/07/18 05:36 Medications: Current Medications Acetaminophen (Tylenol) 1,000 mg PO Q6H PRN PRN Reason: Moderate to Severe Pain (6-10) Last Admin: 06/14/18 04:01 Dose: 1,000 mg Bisacodyl (Dulcolax) 10 mg PO DAILYPRN PRN PRN Reason: Constipation Last Admin: 06/11/18 12:43 Dose: 10 mg Calcitriol (Rocaltrol) 0.25 mcg PO DAILY [facility] Last Admin: 06/16/18 12:56 Dose: 0.25 mcg Calcium Carbonate (Tums) 1,000 mg PO BID-[facility] Last Admin: 06/16/18 16:28 Dose: 1,000 mg Cefazolin Sodium (Ancef) 2 gm SLOW IVP WILLCALL [facility] Cyclobenzaprine HCl (Flexeril) 5 mg PO TID PRN PRN Reason: Muscle Spasm Last Admin: 06/13/18 20:27 Dose: 5 mg Docusate Sodium (Colace) 100 mg PO BID [facility] Last Admin: 06/16/18 20:42 Dose: 100 mg Epoetin Aj (Procrit) 7,500 units SC Q7D [facility] Last Admin: 06/14/18 19:01 Dose: 7,500 units Ferrous Sulfate (Feosol) 325 mg PO BID-[facility] Last Admin: 06/16/18 16:28 Dose: 325 mg Lactulose (Lactulose) 20 gm PO DAILYPRN PRN PRN Reason: Constipation Ondansetron HCl (Zofran) 4 mg IVP Q6H PRN PRN Reason: Nausea/Vomiting Last Admin: 06/12/18 13:02 Dose: 4 mg Polyethylene Glycol (Miralax) 17 gm PO DAILYPRN PRN PRN Reason: Constipation Sevelamer Carbonate (Renvela) 1,600 mg PO TID-[facility] Last Admin: 06/16/18 16:30 Dose: 1,600 mg Sodium Chloride (Flush - Normal Saline) 10 ml IVF Q12HR [facility] Last Admin: 06/16/18 20:42 Dose: Not Given Sodium Chloride (Flush - Normal Saline) 10 ml IVF PRN PRN PRN Reason: Saline Flush Tramadol HCl (Ultram) 50 mg PO Q6H PRN PRN Reason: Pain Last Admin: 06/12/18 08:02 Dose: 50 mg Tramadol HCl (Ultram) 100 mg PO Q6H PRN PRN Reason: Pain Last Admin: 06/14/18 04:01 Dose: 100 mg
[2018-06-15] MEDS: Calcitriol 0.25 MCG CAP PO SCH (09:43)
[2018-06-15] MEDS: Sevelamer Carbonate 800 MG TAB PO SCH ×3 (09:43→16:47)
[2018-06-15] MEDS: Ferrous Sulfate 325 MG TAB PO SCH ×2 (09:43→16:46)
[2018-06-15] MEDS: Calcium Carbonate 500 MG ChewTAB PO SCH ×2 (09:43→16:46)
[2018-06-15] MEDS: Docusate 100 MG CAP PO SCH ×2 (09:44→21:02)
[2018-06-16] MEDS: Calcium Carbonate 500 MG ChewTAB PO SCH ×2 (09:02→16:28)
[2018-06-16] MEDS: Sevelamer Carbonate 800 MG TAB PO SCH ×3 (09:02→16:30)
[2018-06-16] MEDS: Ferrous Sulfate 325 MG TAB PO SCH ×2 (09:02→16:28)
[2018-06-16] MEDS: Docusate 100 MG CAP PO SCH ×2 (09:03→20:42)
[2018-06-16] MEDS ORDERED: Heparin 1,000 UNITS/ML VIAL ONE (11:11)
[2018-06-16] MEDS: Calcitriol 0.25 MCG CAP PO SCH (12:56)
--- NOTE | 2018-06-16 23:49 | PDOC.PN ---
- Subjective Encounter Start Date: 06/15/18 Encounter Start Time: 13:00 Subjective: LATE ENTRY FOR 06/15/18 -: nsg notes rev, jocelin ovn, no new c /o - Objective Resuscitation Status: Resuscitation Status FULL:Full Resuscitation Vital Signs & Weight: Vital Signs (12 hours) Temp Pulse Resp BP Pulse Ox 06/16/18 20:00 98.1 F 94 16 06/16/18 18:50 98.1 F 94 16 131/88 95 Weight Admit Weight 131 lb 8 oz Weight 125 lb 9 oz I&O: 06/15/18 06/16/18 06/17/18 06:59 06:59 06:59 Intake Total 600 2200 1400 Balance 600 2200 1400 Result Diagrams: 06/14/18 04:35 06/14/18 04:35 Phys Exam - Physical Examination Constitutional: NAD lying in bed HEENT: moist MMs Respiratory: no wheezing, no rales, no rhonchi, clear to auscultation bilateral Cardiovascular: RRR, no rub Gastrointestinal: soft, positive bowel sounds Neurological: moves all 4 limbs Psychiatric: normal affect, A&O x 3 Dx/Plan - Plan (1) End-stage renal disease needing dialysis Code(s): N18.6 - END STAGE RENAL DISEASE; Z99.2 - DEPENDENCE ON RENAL DIALYSIS Status: Chronic pending placement for HD has medicaid (2) Systemic lupus Code(s): M32.9 - SYSTEMIC LUPUS ERYTHEMATOSUS, UNSPECIFIED Status: Chronic Qualifiers: Systemic lupus erythematosus organ involvement: glomerular disease stable (3) Pancytopenia Code(s): D61.818 - OTHER PANCYTOPENIA Status: Acute stable - Plan * Fever - curve is decreasing and cultures negative * abd pain secondary to constipation resolved * * dvt prophy - ambulatory
--- NOTE | 2018-06-16 23:49 | PDOC.PN ---
- Subjective Encounter Start Date: 06/16/18 Encounter Start Time: 11:00 Subjective: nsg notes rev ,jocelin ovn, no new c/o - Objective Resuscitation Status: Resuscitation Status FULL:Full Resuscitation Vital Signs & Weight: Vital Signs (12 hours) Temp Pulse Resp BP Pulse Ox 06/16/18 20:00 98.1 F 94 16 06/16/18 18:50 98.1 F 94 16 131/88 95 Weight Admit Weight 131 lb 8 oz Weight 125 lb 9 oz I&O: 06/15/18 06/16/18 06/17/18 06:59 06:59 06:59 Intake Total 600 2200 1400 Balance 600 2200 1400 Result Diagrams: 06/14/18 04:35 06/14/18 04:35 Phys Exam - Physical Examination Constitutional: NAD HEENT: moist MMs Respiratory: clear to auscultation bilateral Cardiovascular: RRR, no rub Gastrointestinal: soft, positive bowel sounds Neurological: moves all 4 limbs Psychiatric: normal affect, A&O x 3 Dx/Plan - Plan * (1) End-stage renal disease needing dialysis Code(s): N18.6 - END STAGE RENAL DISEASE; Z99.2 - DEPENDENCE ON RENAL DIALYSIS Status: Chronic pending placement for HD (2) Systemic lupus Code(s): M32.9 - SYSTEMIC LUPUS ERYTHEMATOSUS, UNSPECIFIED Status: Chronic Qualifiers: Systemic lupus erythematosus organ involvement: glomerular disease stable (3) Pancytopenia Code(s): D61.818 - OTHER PANCYTOPENIA Status: Acute stable - Plan * Fever - curve is decreasing and cultures negative, hold abx * abd pain secondary to constipation resolved * * dvt prophy - ambulatory
[2018-06-17] MEDS: Calcium Carbonate 500 MG ChewTAB PO SCH ×2 (08:25→17:44)
[2018-06-17] MEDS: Calcitriol 0.25 MCG CAP PO SCH (08:25)
[2018-06-17] MEDS: Ferrous Sulfate 325 MG TAB PO SCH ×2 (08:25→17:45)
[2018-06-17] MEDS: Sevelamer Carbonate 800 MG TAB PO SCH ×3 (08:25→17:45)
[2018-06-17] MEDS: Docusate 100 MG CAP PO SCH ×2 (08:25→20:13)
--- NOTE | 2018-06-17 08:44 | PDOC.PN ---
- Subjective Encounter Start Date: 06/17/18 Encounter Start Time: 08:43 Subjective: nsg notes rev, jocelin ovn, pt no c/o, mother @ bedside - Objective Resuscitation Status: Resuscitation Status FULL:Full Resuscitation Vital Signs & Weight: Vital Signs (12 hours) Temp Pulse Resp BP Pulse Ox 06/17/18 08:05 97.9 F 83 16 132/91 H 99 Weight Admit Weight 131 lb 8 oz Weight 124 lb I&O: 06/16/18 06/17/18 06/18/18 06:59 06:59 06:59 Intake Total 2199 2049 Balance 2199 2049 Result Diagrams: 06/14/18 04:35 06/14/18 04:35 Phys Exam - Physical Examination Constitutional: NAD lying in hopsital bed Neurological: moves all 4 limbs Psychiatric: normal affect, A&O x 3 Dx/Plan - Plan * (1) End-stage renal disease needing dialysis Code(s): N18.6 - END STAGE RENAL DISEASE; Z99.2 - DEPENDENCE ON RENAL DIALYSIS Status: Chronic pending obtaining a dialysis chair apprec CM c/s still waiting on ins approval (2) Systemic lupus Code(s): M32.9 - SYSTEMIC LUPUS ERYTHEMATOSUS, UNSPECIFIED Status: Chronic Qualifiers: Systemic lupus erythematosus organ involvement: glomerular disease stable (3) Pancytopenia Code(s): D61.818 - OTHER PANCYTOPENIA Status: Acute stable - Plan * Fever - curve is decreasing and cultures negative, hold abx * abd pain secondary to constipation resolved * * dvt prophy - ambulatory
--- NOTE | 2018-06-17 12:09 | EKG ---
Test Reason : Blood Pressure : / mmHG Vent. Rate : 080 BPM Atrial Rate : 080 BPM P-R Int : 120 ms QRS Dur : 084 ms QT Int : 416 ms P-R-T Axes : 049 033 070 degrees QTc Int : 479 ms Normal sinus rhythm Normal ECG Confirmed by PHIL VALVERDE [id number]), editor city SOUMYA BEAN ([id number]) on 06/17/2018 12:08:47 PM Referred By: Confirmed By:PHIL VALVERDE
[2018-06-18] MEDS: Calcium Carbonate 500 MG ChewTAB PO SCH ×2 (08:29→18:55)
[2018-06-18] MEDS: Sevelamer Carbonate 800 MG TAB PO SCH ×3 (08:29→18:54)
[2018-06-18] MEDS: Calcitriol 0.25 MCG CAP PO SCH (08:29)
[2018-06-18] MEDS: Ferrous Sulfate 325 MG TAB PO SCH ×2 (08:30→18:54)
[2018-06-18] MEDS: Docusate 100 MG CAP PO SCH ×2 (08:30→20:52)
--- NOTE | 2018-06-18 10:21 | PRG ---
DATE OF SERVICE: 06/18/2018 SUBJECTIVE: Mr. Ewing is a 27-year-old male with ESRD/chronic renal failure. He was admitte d for uremia. He was initiated on dialysis. He has a PD catheter placed also. No new complaints to day, no chest pain or shortness of breath. He is feeling better. We are currently awaiting outpatie nt dialysis placement with this patient. PHYSICAL EXAMINATION: VITAL SIGNS: Blood pressure 116/86, heart rate 83, respiratory rate 20, temperature 97.5, pulse ox 9 9%. GENERAL: Awake, alert, comfortable, not in distress. SKIN: Adequate turgor. HEENT: Slightly pale conjunctivae, anicteric sclerae. NECK: No neck mass, no carotid bruits, no JVD. CHEST: No deformities. LUNGS: Clear breath sounds, no wheezing, no crackles. HEART: Normal sinus rhythm. No murmur, no gallops or rubs. ABDOMEN: Globular, soft, nontender, no masses. Positive for PD catheter. EXTREMITIES: No edema, no deformities. MEDICATIONS: 06/18/2018 reviewed. LABORATORY DATA: Of 06/14/2018, white count 3.5, hemoglobin 8.2. Sodium 134, potassium 3.6, chlorid e 95, carbon dioxide 23, BUN 78, creatinine 10.9, glucose 102, calcium 7.8. ASSESSMENT AND PLAN: 1. Anemia, on weekly Epogen. 2. Systemic lupus erythematosus. 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 3. End-stage renal disease/chronic renal failure, continuing Tuesday, Tuesday, Tuesday hemodialysis. Fluid removal only as tolerated. Once he has an outpatient placement, we will start training him f or peritoneal dialysis. 4. Renal osteodystrophy, currently on calcitriol and phosphate binders. We will recheck base met an d CBC in a.m.
[2018-06-18] MEDS ORDERED: hydrALAZINE 20 MG/ML VIAL SLOW IVP PRN (11:50)
[2018-06-18] MEDS ORDERED: Chloraseptic Spray 180 ml Bottle PO PRN (11:50)
[2018-06-18] MEDS ORDERED: Diabetic Tussin 200 MG/10 ML UDCUP PO PRN (11:50)
[2018-06-18] MEDS ORDERED: Eucerin (Mineral Oil/Petrolatum,White) 30 gm Jar TOP PRN (11:50)
[2018-06-18] MEDS ORDERED: Loperamide HCl 2 MG CAP PO PRN (11:50)
[2018-06-18] MEDS ORDERED: Temazepam 15 MG CAP PO PRN (11:50)
[2018-06-18] MEDS ORDERED: Sodium Chloride 0.65% Nasal 44 ML BOT EA NARE PRN (11:50)
[2018-06-18] MEDS ORDERED: Artificial Tears 18 DROP/0.9 ML EA EYE PRN (11:50)
[2018-06-18] MEDS ORDERED: Ondansetron ODT 4 MG TAB PO PRN (11:50)
--- NOTE | 2018-06-18 11:51 | PDOC.PN ---
- Subjective Encounter Start Date: 06/18/18 Encounter Start Time: 09:00 -: old records requested/rev Patient seen and examined. No new complaints. No overnight events - Objective Resuscitation Status: Resuscitation Status FULL:Full Resuscitation MAR Reviewed: Yes Vital Signs & Weight: Vital Signs (12 hours) Temp Pulse Resp BP Pulse Ox 06/18/18 08:00 97.5 F L 83 20 126/86 99 Weight Admit Weight 131 lb 8 oz Weight 126 lb 14.4 oz I&O: 06/17/18 06/18/18 06/19/18 06:59 06:59 06:59 Intake Total 2049 650 360 Balance 2049 650 360 Result Diagrams: 06/14/18 04:35 06/14/18 04:35 Phys Exam - Physical Examination Constitutional: NAD HEENT: PERRLA, moist MMs, sclera anicteric Neck: no JVD, supple Respiratory: no wheezing, no rales, no rhonchi Cardiovascular: RRR, no significant murmur, no rub Gastrointestinal: soft, non-tender, no distention, positive bowel sounds Musculoskeletal: no edema, pulses present Neurological: non-focal, normal sensation Lymphatic: no nodes Psychiatric: normal affect, A&O x 3 Skin: no rash, normal turgor Dx/Plan (1) Anemia of renal disease Code(s): D63.1 - ANEMIA IN CHRONIC KIDNEY DISEASE Status: Chronic (2) End-stage renal disease needing dialysis Code(s): N18.6 - END STAGE RENAL DISEASE; Z99.2 - DEPENDENCE ON RENAL DIALYSIS Status: Chronic (3) Pancytopenia Code(s): D61.818 - OTHER PANCYTOPENIA Status: Chronic (4) Secondary hyperparathyroidism of renal origin Code(s): N25.81 - SECONDARY HYPERPARATHYROIDISM OF RENAL ORIGIN Status: Chronic (5) Systemic lupus Code(s): M32.9 - SYSTEMIC LUPUS ERYTHEMATOSUS, UNSPECIFIED Status: Chronic Qualifiers: Systemic lupus erythematosus organ involvement: glomerular disease - Plan cont current plan of care, plan discussed w/ family * medication reviewed as below * symptomatic treatment * pt is awaiting outpt HD arrangement * will add tums bid * discussed with family bedside. Review of Systems - Review of Systems ENT: negative: Ear Pain, Ear Discharge, Nose Pain, Nose Discharge, Nose Congestion, Mouth Pain, Mouth Swelling, Throat Pain, Throat Swelling, Other Respiratory: negative: Cough, Dry, Shortness of Breath, Hemoptysis, SOB with Excertion, Pleuritic Pain, Sputum, Wheezing Cardiovascular: negative: chest pain, palpitations, orthopnea, paroxysmal nocturnal dyspnea, edema, light headedness, other Gastrointestinal: negative: Nausea, Vomiting, Abdominal Pain, Diarrhea, Constipation, Melena, Hematochezia, Other Genitourinary: negative: Dysuria, Frequency, Incontinence, Hematuria, Retention , Other Musculoskeletal: negative: Neck Pain, Shoulder Pain, Arm Pain, Back Pain, Hand Pain, Leg Pain, Foot Pain, Other Skin: negative: Rash, Lesions, Karl, Bruising, Other - Medications/Allergies Allergies/Adverse Reactions: Allergies Allergy/AdvReac Type Severity Reaction Status Date / Time promethazine [From Phenergan] Allergy Verified 06/07/18 05:36 Medications: Current Medications Acetaminophen (Tylenol) 1,000 mg PO Q6H PRN PRN Reason: Moderate to Severe Pain (6-10) Last Admin: 06/14/18 04:01 Dose: 1,000 mg Bisacodyl (Dulcolax) 10 mg PO DAILYPRN PRN PRN Reason: Constipation Last Admin: 06/11/18 12:43 Dose: 10 mg Calcitriol (Rocaltrol) 0.25 mcg PO DAILY [facility] Last Admin: 06/18/18 08:29 Dose: 0.25 mcg Calcium Carbonate (Tums) 1,000 mg PO BID-[facility] Last Admin: 06/18/18 08:29 Dose: 1,000 mg Cefazolin Sodium (Ancef) 2 gm SLOW IVP WILLCALL [facility] Cyclobenzaprine HCl (Flexeril) 5 mg PO TID PRN PRN Reason: Muscle Spasm Last Admin: 06/13/18 20:27 Dose: 5 mg Docusate Sodium (Colace) 100 mg PO BID [facility] Last Admin: 06/18/18 08:30 Dose: 100 mg Epoetin Aj (Procrit) 7,500 units SC Q7D [facility] Last Admin: 06/14/18 19:01 Dose: 7,500 units Ferrous Sulfate (Feosol) 325 mg PO BID-[facility] Last Admin: 06/18/18 08:30 Dose: 325 mg Lactulose (Lactulose) 20 gm PO DAILYPRN PRN PRN Reason: Constipation Ondansetron HCl (Zofran) 4 mg IVP Q6H PRN PRN Reason: Nausea/Vomiting Last Admin: 06/12/18 13:02 Dose: 4 mg Polyethylene Glycol (Miralax) 17 gm PO DAILYPRN PRN PRN Reason: Constipation Sevelamer Carbonate (Renvela) 1,600 mg PO TID-[facility] Last Admin: 06/18/18 08:29 Dose: 1,600 mg Sodium Chloride (Flush - Normal Saline) 10 ml IVF Q12HR [facility] Last Admin: 06/18/18 08:30 Dose: Not Given Sodium Chloride (Flush - Normal Saline) 10 ml IVF PRN PRN PRN Reason: Saline Flush Tramadol HCl (Ultram) 50 mg PO Q6H PRN PRN Reason: Pain Last Admin: 06/12/18 08:02 Dose: 50 mg Tramadol HCl (Ultram) 100 mg PO Q6H PRN PRN Reason: Pain Last Admin: 06/14/18 04:01 Dose: 100 mg
[2018-06-18] MEDS: Cyclobenzaprine 10 MG TAB PO PRN (22:59)
[2018-06-19 05:28] LABS: #Lymphocytes 0.5 thou/uL (1.20-3.40); #Monocytes 0.1 thou/uL (0.11-0.59); #Neutrophils 0.9 thou/uL (1.40-6.50); %Eosinophils 1.5 % (0.0-10.0); %Monocytes 7.5 % (0.0-10.0); %Neutrophils 59.1 % (42.0-75.0); Hemoglobin 9.1 g/dL (14.0-18.0); Mean Corpuscular HGB CONC 34.9 g/dL (32.0-36.0); Mean Corpuscular Hemoglobin 31.1 pg (27.0-31.0); Mean Corpuscular Volume 89.2 fL (78.0-98.0); Mean Platelet Volume 7.9 fL (7.4-10.4); Platelet Count 133 thou/uL (130-400); RBC Distribution Width 12.5 % (11.5-14.5); Red Blood Cell (RBC) Count 2.92 mill/uL (4.70-6.10); White Blood Cell (WBC) Count 1.5 thou/uL (4.8-10.8)
[2018-06-19 05:51] LABS: Anion Gap 20 mmol/L (10-20); BUN (Urea Nitrogen) 92 mg/dL (8.9-20.6); Calc. Creatinine Clearance 9 mL/min (70-130); Calcium 7.5 mg/dL (7.8-10.44); Carbon Dioxide 21 mmol/L (22-29); Chloride 97 mmol/L (98-107); Estimated GFR-MDRD 6; Glucose 86 mg/dL (70-105); Sodium 133 mmol/L (136-145)
[2018-06-19] MEDS: Calcium Carbonate 500 MG ChewTAB PO SCH ×2 (08:23→18:21)
[2018-06-19] MEDS: Ferrous Sulfate 325 MG TAB PO SCH ×2 (08:23→18:21)
[2018-06-19] MEDS: Docusate 100 MG CAP PO SCH ×2 (08:24→20:32)
[2018-06-19] MEDS: Sevelamer Carbonate 800 MG TAB PO SCH ×3 (08:24→18:21)
--- NOTE | 2018-06-19 09:15 | PRG ---
DATE OF SERVICE: 06/19/2018 SERVICE: Renal Medicine. SUBJECTIVE: Mr. Ewing is a 27-year-old male with ESRD, and currently being followed up for h is maintenance hemodialysis. I am at the bedside supervising his dialysis. No new complaints. No c hest pain or shortness of breath. OBJECTIVE: VITAL SIGNS: Blood pressure is 128/86, heart rate 88, respiratory rate 22, temperature 97.9, pulse o x 97%. GENERAL EXAM: Noted to be awake, alert, comfortable, not in overt distress. SKIN: Adequate turgor. HEENT: Pinkish conjunctivae. Anicteric sclerae. NECK: No neck mass, no carotid bruits, no JVD. CHEST: No deformities. LUNGS: Clear breath sounds, no wheezing, no crackles. HEART: Normal sinus rhythm. No murmur, no gallops, no rubs. ABDOMEN: Globular, soft, nontender, no masses. EXTREMITIES: No edema, no deformities. Medications of 06/19/2018 reviewed. LABORATORY DATA: Laboratories of 06/19/2018, white count 1.5, hemoglobin 9.1. Sodium 133, potassium 5, chloride 97, carbon dioxide 21, BUN 92, creatinine 10.12, calcium 7.5. ASSESSMENT AND PLAN: 1. End-stage renal disease, continuing Tuesday, Tuesday, Tuesday hemodialysis. My plan is to change his schedule to a Tuesday, , and Tuesday dialysis. We will start this, this coming . We are awaiting outpatient hemodialysis placement with this patient. He does have a PD catheter, and once he is in the outpatient setting, we will start training him for peritoneal dialysis. 2. Anemia, on weekly Epogen. 3. Leukopenia - most likely related to underlying lupus. 4. Systemic lupus erythematosus - the patient to follow up with his federal judicial law clerk once he is discha rged. He may need immunosuppressive regimen again.
--- NOTE | 2018-06-19 12:14 | PDOC.PN ---
- Subjective Encounter Start Date: 06/19/18 Encounter Start Time: 07:15 Patient seen and examined. No new complaints. No overnight events pt seen in dialysis room - Objective Resuscitation Status: Resuscitation Status FULL:Full Resuscitation MAR Reviewed: Yes Vital Signs & Weight: Vital Signs (12 hours) Temp Pulse Resp BP BP Pulse Ox 06/19/18 08:00 97.9 F 88 22 H 100 06/19/18 07:27 97.9 F 88 22 H 126/86 97 06/19/18 07:07 98.6 F 86 16 132/84 100 Weight Admit Weight 131 lb 8 oz Weight 127 lb 1.755 oz I&O: 06/18/18 06/19/18 06/20/18 06:59 06:59 06:59 Intake Total 650 1999 Output Total 0 Balance 650 1999 Result Diagrams: 06/19/18 04:54 06/19/18 04:54 Phys Exam - Physical Examination Constitutional: NAD HEENT: PERRLA, moist MMs, sclera anicteric Neck: no JVD, supple Respiratory: no wheezing, no rales, no rhonchi Cardiovascular: RRR, no significant murmur, no rub Gastrointestinal: soft, non-tender, no distention, positive bowel sounds Musculoskeletal: no edema, pulses present Neurological: non-focal, normal sensation, moves all 4 limbs Psychiatric: normal affect, A&O x 3 Skin: no rash, normal turgor Dx/Plan (1) Anemia of renal disease Code(s): D63.1 - ANEMIA IN CHRONIC KIDNEY DISEASE Status: Chronic (2) End-stage renal disease needing dialysis Code(s): N18.6 - END STAGE RENAL DISEASE; Z99.2 - DEPENDENCE ON RENAL DIALYSIS Status: Chronic (3) Pancytopenia Code(s): D61.818 - OTHER PANCYTOPENIA Status: Chronic (4) Secondary hyperparathyroidism of renal origin Code(s): N25.81 - SECONDARY HYPERPARATHYROIDISM OF RENAL ORIGIN Status: Chronic (5) Systemic lupus Code(s): M32.9 - SYSTEMIC LUPUS ERYTHEMATOSUS, UNSPECIFIED Status: Chronic Qualifiers: Systemic lupus erythematosus organ involvement: glomerular disease - Plan cont current plan of care * medication reviewed as below * symptomatic treatment * await outpt HD arrangement. Review of Systems - Review of Systems Eyes: negative: Pain, Vision Change, Conjunctivae Inflammation, Eyelid Inflammation, Redness, Other ENT: negative: Ear Pain, Ear Discharge, Nose Pain, Nose Discharge, Nose Congestion, Mouth Pain, Mouth Swelling, Throat Pain, Throat Swelling, Other Respiratory: negative: Cough, Dry, Shortness of Breath, Hemoptysis, SOB with Excertion, Pleuritic Pain, Sputum, Wheezing Cardiovascular: negative: chest pain, palpitations, orthopnea, paroxysmal nocturnal dyspnea, edema, light headedness, other Gastrointestinal: negative: Nausea, Vomiting, Abdominal Pain, Diarrhea, Constipation, Melena, Hematochezia, Other Genitourinary: negative: Dysuria, Frequency, Incontinence, Hematuria, Retention , Other Musculoskeletal: negative: Neck Pain, Shoulder Pain, Arm Pain, Back Pain, Hand Pain, Leg Pain, Foot Pain, Other Skin: negative: Rash, Lesions, Karl, Bruising, Other - Medications/Allergies Allergies/Adverse Reactions: Allergies Allergy/AdvReac Type Severity Reaction Status Date / Time promethazine [From Phenergan] Allergy Verified 06/07/18 05:36 Medications: Current Medications Acetaminophen (Tylenol) 1,000 mg PO Q6H PRN PRN Reason: Moderate to Severe Pain (6-10) Last Admin: 06/14/18 04:01 Dose: 1,000 mg Artificial Tears (Tears Naturale) 0 drop EA EYE PRN PRN PRN Reason: Dry Eyes Bisacodyl (Dulcolax) 10 mg PO DAILYPRN PRN PRN Reason: Constipation Last Admin: 06/11/18 12:43 Dose: 10 mg Calcitriol (Rocaltrol) 0.25 mcg PO DAILY [facility] Last Admin: 06/18/18 08:29 Dose: 0.25 mcg Calcium [facility] ([facility]) [facility] Last Admin: 06/19/18 08:23 Dose: Not Given Cyclobenzaprine HCl (Flexeril) 5 mg PO TID PRN PRN Reason: Muscle Spasm Last Admin: 06/18/18 22:59 Dose: 5 mg Docusate Sodium (Colace) 100 mg PO BID [facility] Last Admin: 06/19/18 08:24 Dose: Not Given Epoetin Aj (Procrit) 7,500 units SC Q7D [facility] Last Admin: 06/14/18 19:01 Dose: 7,500 units Ferrous Sulfate (Feosol) [facility] Last Admin: 06/19/18 08:23 Dose: Not Given Guaifenesin (Robitussin Sf) 200 mg PO Q4H PRN PRN Reason: Cough Hydralazine HCl (Apresoline) 10 mg SLOW IVP Q4H PRN PRN Reason: Systolic BP > 180 Lactulose (Lactulose) 20 gm PO DAILYPRN PRN PRN Reason: Constipation Loperamide HCl (Imodium) 2 mg PO PRN PRN PRN Reason: Diarrhea/Loose Stools Mineral Oil/White Petrolatum (Eucerin Cream) 0 gm TOP BIDPRN PRN PRN Reason: Dry Skin Ondansetron HCl (Zofran) 4 mg IVP Q6H PRN PRN Reason: Nausea/Vomiting Last Admin: 06/12/18 13:02 Dose: 4 mg Ondansetron HCl (Zofran Odt) 4 mg PO Q6H PRN PRN Reason: Nausea/Vomiting Phenol (Chloraseptic [place] 180 Ml Bot) 0 ml PO PRN PRN PRN Reason: Sore Throat Polyethylene Glycol (Miralax) 17 gm PO DAILYPRN PRN PRN Reason: Constipation Sevelamer Carbonate (Renvela) 1,600 mg PO TID-[facility] Last Admin: 06/19/18 08:24 Dose: Not Given Sodium Chloride (Flush - Normal Saline) 10 ml IVF Q12HR [facility] Last Admin: 06/19/18 08:24 Dose: Not Given Sodium Chloride (Flush - Normal Saline) 10 ml IVF PRN PRN PRN Reason: Saline Flush Sodium Chloride ([place] Nasal [place] 0.65%) 0 ml EA NARE QIDPRN PRN PRN Reason: Nasal Congestion Temazepam (Restoril) 15 mg PO HSPRN PRN PRN Reason: Insomnia Tramadol HCl (Ultram) 50 mg PO Q6H PRN PRN Reason: Pain Last Admin: 06/12/18 08:02 Dose: 50 mg
[2018-06-19] MEDS: Calcitriol 0.25 MCG CAP PO SCH (12:35)
[2018-06-19] MEDS ORDERED: Heparin 10,000 UNITS/ 10 ML VIAL ONE (14:36)
[2018-06-20] MEDS: Docusate 100 MG CAP PO SCH ×2 (08:54→19:48)
[2018-06-20] MEDS: Calcitriol 0.25 MCG CAP PO SCH (08:54)
[2018-06-20] MEDS: Calcium Carbonate 500 MG ChewTAB PO SCH ×2 (08:54→17:50)
[2018-06-20] MEDS: Sevelamer Carbonate 800 MG TAB PO SCH ×3 (08:54→17:51)
[2018-06-20] MEDS: Ferrous Sulfate 325 MG TAB PO SCH ×2 (08:54→17:51)
--- NOTE | 2018-06-20 12:49 | PDOC.PN ---
- Subjective Encounter Start Date: 06/20/18 Encounter Start Time: 09:00 Patient seen and examined. No new complaints. No overnight events - Objective Resuscitation Status: Resuscitation Status FULL:Full Resuscitation MAR Reviewed: Yes Vital Signs & Weight: Vital Signs (12 hours) Temp Pulse Resp BP Pulse Ox 06/20/18 08:00 98.3 F 80 14 96 06/20/18 07:18 98.3 F 80 14 116/76 96 Weight Admit Weight 131 lb 8 oz Weight 127 lb 11.773 oz I&O: 06/19/18 06/20/18 06/21/18 06:59 06:59 06:59 Intake Total 2000 1800 Output Total 0 1000 Balance 2000 800 Result Diagrams: 06/19/18 04:54 06/19/18 04:54 Phys Exam - Physical Examination Constitutional: NAD HEENT: PERRLA, moist MMs, sclera anicteric Neck: no JVD, supple Respiratory: no wheezing, no rales, no rhonchi Cardiovascular: RRR, no significant murmur, no rub Gastrointestinal: soft, non-tender, no distention, positive bowel sounds Musculoskeletal: no edema, pulses present Neurological: non-focal, normal sensation, moves all 4 limbs Psychiatric: normal affect, A&O x 3 Skin: no rash, normal turgor Dx/Plan (1) Anemia of renal disease Code(s): D63.1 - ANEMIA IN CHRONIC KIDNEY DISEASE Status: Chronic (2) End-stage renal disease needing dialysis Code(s): N18.6 - END STAGE RENAL DISEASE; Z99.2 - DEPENDENCE ON RENAL DIALYSIS Status: Chronic (3) Pancytopenia Code(s): D61.818 - OTHER PANCYTOPENIA Status: Chronic (4) Secondary hyperparathyroidism of renal origin Code(s): N25.81 - SECONDARY HYPERPARATHYROIDISM OF RENAL ORIGIN Status: Chronic (5) Systemic lupus Code(s): M32.9 - SYSTEMIC LUPUS ERYTHEMATOSUS, UNSPECIFIED Status: Chronic Qualifiers: Systemic lupus erythematosus organ involvement: glomerular disease - Plan cont current plan of care, oncology social worker * medication reviewed as below * symptomatic treatment * pt is waiting for oupt HD arrangement * medically stable with current treatment * he will need outpt rheumatology follow up. Review of Systems - Review of Systems Eyes: negative: Pain, Vision Change, Conjunctivae Inflammation, Eyelid Inflammation, Redness, Other ENT: negative: Ear Pain, Ear Discharge, Nose Pain, Nose Discharge, Nose Congestion, Mouth Pain, Mouth Swelling, Throat Pain, Throat Swelling, Other Respiratory: negative: Cough, Dry, Shortness of Breath, Hemoptysis, SOB with Excertion, Pleuritic Pain, Sputum, Wheezing Cardiovascular: negative: chest pain, palpitations, orthopnea, paroxysmal nocturnal dyspnea, edema, light headedness, other Gastrointestinal: negative: Nausea, Vomiting, Abdominal Pain, Diarrhea, Constipation, Melena, Hematochezia, Other Genitourinary: negative: Dysuria, Frequency, Incontinence, Hematuria, Retention , Other Musculoskeletal: negative: Neck Pain, Shoulder Pain, Arm Pain, Back Pain, Hand Pain, Leg Pain, Foot Pain, Other Skin: negative: Rash, Lesions, Karl, Bruising, Other - Medications/Allergies Allergies/Adverse Reactions: Allergies Allergy/AdvReac Type Severity Reaction Status Date / Time promethazine [From Phenergan] Allergy Verified 06/07/18 05:36 Medications: Current Medications Acetaminophen (Tylenol) 1,000 mg PO Q6H PRN PRN Reason: Moderate to Severe Pain (6-10) Last Admin: 06/14/18 04:01 Dose: 1,000 mg Artificial Tears (Tears Naturale) 0 drop EA EYE PRN PRN PRN Reason: Dry Eyes Bisacodyl (Dulcolax) 10 mg PO DAILYPRN PRN PRN Reason: Constipation Last Admin: 06/11/18 12:43 Dose: 10 mg Calcitriol (Rocaltrol) 0.25 mcg PO DAILY [facility] Last Admin: 06/20/18 08:54 Dose: 0.25 mcg Calcium Carbonate (Tums) [facility] Last Admin: 06/20/18 08:54 Dose: 1,000 mg Cyclobenzaprine HCl (Flexeril) 5 mg PO TID PRN PRN Reason: Muscle Spasm Last Admin: 06/18/18 22:59 Dose: 5 mg Docusate Sodium (Colace) 100 mg PO BID [facility] Last Admin: 06/20/18 08:54 Dose: 100 mg Epoetin Aj (Procrit) 7,500 units SC Q7D [facility] Last Admin: 06/14/18 19:01 Dose: 7,500 units Ferrous Sulfate (Feosol) 325 [facility] Last Admin: 06/20/18 08:54 Dose: 325 mg Guaifenesin (Robitussin Sf) 200 mg PO Q4H PRN PRN Reason: Cough Hydralazine HCl (Apresoline) 10 mg SLOW IVP Q4H PRN PRN Reason: Systolic BP > 180 Lactulose (Lactulose) 20 gm PO DAILYPRN PRN PRN Reason: Constipation Loperamide HCl (Imodium) 2 mg PO PRN PRN PRN Reason: Diarrhea/Loose Stools Mineral Oil/White Petrolatum (Eucerin Cream) 0 gm TOP BIDPRN PRN PRN Reason: Dry Skin Ondansetron HCl (Zofran) 4 mg IVP Q6H PRN PRN Reason: Nausea/Vomiting Last Admin: 06/12/18 13:02 Dose: 4 mg Ondansetron HCl (Zofran Odt) 4 mg PO Q6H PRN PRN Reason: Nausea/Vomiting Phenol (Chloraseptic [place] 180 Ml Bot) 0 ml PO PRN PRN PRN Reason: Sore Throat Polyethylene Glycol (Miralax) 17 gm PO DAILYPRN PRN PRN Reason: Constipation Sevelamer Carbonate (Renvela) 1,600 mg PO TID-[facility] Last Admin: 06/20/18 11:39 Dose: 1,600 mg Sodium Chloride (Flush - Normal Saline) 10 ml IVF Q12HR [facility] Last Admin: 06/20/18 08:55 Dose: Not Given Sodium Chloride (Flush - Normal Saline) 10 ml IVF PRN PRN PRN Reason: Saline Flush Sodium Chloride ([place] Nasal [place] 0.65%) 0 ml EA NARE QIDPRN PRN PRN Reason: Nasal Congestion Temazepam (Restoril) 15 mg PO HSPRN PRN PRN Reason: Insomnia Tramadol HCl (Ultram) 50 mg PO Q6H PRN PRN Reason: Pain Last Admin: 06/12/18 08:02 Dose: 50 mg
[2018-06-21] MEDS: Ferrous Sulfate 325 MG TAB PO SCH ×2 (08:54→17:28)
[2018-06-21] MEDS: Calcitriol 0.25 MCG CAP PO SCH (08:54)
[2018-06-21] MEDS: Docusate 100 MG CAP PO SCH ×2 (08:54→20:33)
[2018-06-21] MEDS: Sevelamer Carbonate 800 MG TAB PO SCH ×3 (08:54→17:28)
[2018-06-21] MEDS: Epoetin (ESRD) 20,000 UNITS/ML SC SCH (08:54)
[2018-06-21] MEDS: Calcium Carbonate 500 MG ChewTAB PO SCH ×2 (08:54→17:28)
--- NOTE | 2018-06-21 12:27 | PDOC.PN ---
- Subjective Encounter Start Date: 06/21/18 Encounter Start Time: 09:10 Patient seen and examined. No new complaints. No overnight events - Objective Resuscitation Status: Resuscitation Status FULL:Full Resuscitation MAR Reviewed: Yes Vital Signs & Weight: Vital Signs (12 hours) Temp Pulse Resp BP Pulse Ox 06/21/18 08:17 98.0 F 83 16 128/87 95 06/21/18 08:00 98.0 F 83 16 95 Weight Admit Weight 131 lb 8 oz Weight 134 lb I&O: 06/20/18 06/21/18 06/22/18 06:59 06:59 06:59 Intake Total 1800 1450 Output Total 1000 Balance 800 1450 Result Diagrams: 06/19/18 04:54 06/19/18 04:54 Phys Exam - Physical Examination Constitutional: NAD HEENT: PERRLA, moist MMs, sclera anicteric Neck: no JVD, supple Respiratory: no wheezing, no rales, no rhonchi Cardiovascular: RRR, no significant murmur, no rub Gastrointestinal: soft, non-tender, no distention, positive bowel sounds Musculoskeletal: no edema, pulses present Neurological: non-focal, normal sensation, moves all 4 limbs Lymphatic: no nodes Psychiatric: normal affect, A&O x 3 Skin: no rash, normal turgor Dx/Plan (1) Anemia of renal disease Code(s): D63.1 - ANEMIA IN CHRONIC KIDNEY DISEASE Status: Chronic (2) End-stage renal disease needing dialysis Code(s): N18.6 - END STAGE RENAL DISEASE; Z99.2 - DEPENDENCE ON RENAL DIALYSIS Status: Chronic (3) Pancytopenia Code(s): D61.818 - OTHER PANCYTOPENIA Status: Chronic (4) Secondary hyperparathyroidism of renal origin Code(s): N25.81 - SECONDARY HYPERPARATHYROIDISM OF RENAL ORIGIN Status: Chronic (5) Systemic lupus Code(s): M32.9 - SYSTEMIC LUPUS ERYTHEMATOSUS, UNSPECIFIED Status: Chronic Qualifiers: Systemic lupus erythematosus organ involvement: glomerular disease - Plan cont current plan of care, social media marketing specialist * medication reviewed as below * symptomatic treatment * await outpt HD arrangement. Review of Systems - Review of Systems ENT: negative: Ear Pain, Ear Discharge, Nose Pain, Nose Discharge, Nose Congestion, Mouth Pain, Mouth Swelling, Throat Pain, Throat Swelling, Other Respiratory: negative: Cough, Dry, Shortness of Breath, Hemoptysis, SOB with Excertion, Pleuritic Pain, Sputum, Wheezing Cardiovascular: negative: chest pain, palpitations, orthopnea, paroxysmal nocturnal dyspnea, edema, light headedness, other Gastrointestinal: negative: Nausea, Vomiting, Abdominal Pain, Diarrhea, Constipation, Melena, Hematochezia, Other Genitourinary: negative: Dysuria, Frequency, Incontinence, Hematuria, Retention , Other Musculoskeletal: negative: Neck Pain, Shoulder Pain, Arm Pain, Back Pain, Hand Pain, Leg Pain, Foot Pain, Other Skin: negative: Rash, Lesions, Karl, Bruising, Other - Medications/Allergies Allergies/Adverse Reactions: Allergies Allergy/AdvReac Type Severity Reaction Status Date / Time promethazine [From Phenergan] Allergy Verified 06/07/18 05:36 Medications: Current Medications Acetaminophen (Tylenol) 1,000 mg PO Q6H PRN PRN Reason: Moderate to Severe Pain (6-10) Last Admin: 06/14/18 04:01 Dose: 1,000 mg Artificial Tears (Tears Naturale) 0 drop EA EYE PRN PRN PRN Reason: Dry Eyes Bisacodyl (Dulcolax) 10 mg PO DAILYPRN PRN PRN Reason: Constipation Last Admin: 06/11/18 12:43 Dose: 10 mg Calcitriol (Rocaltrol) 0.25 mcg PO DAILY [facility] Last Admin: 06/21/18 08:54 Dose: 0.25 mcg [facility] ([facility] Last Admin: 06/21/18 08:54 Dose: 1,000 mg Cyclobenzaprine HCl (Flexeril) 5 mg PO TID PRN PRN Reason: Muscle Spasm Last Admin: 06/18/18 22:59 Dose: 5 mg Docusate Sodium (Colace) 100 mg PO BID [facility] Last Admin: 06/21/18 08:54 Dose: 100 mg Epoetin Aj (Procrit) 7,500 units SC Q7D [facility] Last Admin: 06/21/18 08:54 Dose: 7,500 units Ferrous Sulfate ([facility]ol) [facility] Last Admin: 06/21/18 08:54 Dose: 325 mg Guaifenesin (Robitussin Sf) 200 mg PO Q4H PRN PRN Reason: Cough Hydralazine HCl (Apresoline) 10 mg SLOW IVP Q4H PRN PRN Reason: Systolic BP > 180 Lactulose (Lactulose) 20 gm PO DAILYPRN PRN PRN Reason: Constipation Loperamide HCl (Imodium) 2 mg PO PRN PRN PRN Reason: Diarrhea/Loose Stools Mineral Oil/White Petrolatum (Eucerin Cream) 0 gm TOP BIDPRN PRN PRN Reason: Dry Skin Ondansetron HCl (Zofran) 4 mg IVP Q6H PRN PRN Reason: Nausea/Vomiting Last Admin: 06/12/18 13:02 Dose: 4 mg Ondansetron HCl (Zofran Odt) 4 mg PO Q6H PRN PRN Reason: Nausea/Vomiting Phenol (Chloraseptic [place] 180 Ml Bot) 0 ml PO PRN PRN PRN Reason: Sore Throat Polyethylene Glycol (Miralax) 17 gm PO DAILYPRN PRN PRN Reason: Constipation Sevelamer Carbonate (Renvela) 1,600 mg PO TID-[facility] Last Admin: 06/21/18 11:56 Dose: 1,600 mg Sodium Chloride (Flush - Normal Saline) 10 ml IVF Q12HR [facility] Last Admin: 06/21/18 08:55 Dose: Not Given Sodium Chloride (Flush - Normal Saline) 10 ml IVF PRN PRN PRN Reason: Saline Flush Sodium Chloride ([place] Nasal [place] 0.65%) 0 ml EA NARE QIDPRN PRN PRN Reason: Nasal Congestion Temazepam (Restoril) 15 mg PO HSPRN PRN PRN Reason: Insomnia Tramadol HCl (Ultram) 50 mg PO Q6H PRN PRN Reason: Pain Last Admin: 06/12/18 08:02 Dose: 50 mg
[2018-06-22] MEDS: Ferrous Sulfate 325 MG TAB PO SCH (08:20)
[2018-06-22] MEDS: Calcium Carbonate 500 MG ChewTAB PO SCH (08:20)
[2018-06-22] MEDS: Sevelamer Carbonate 800 MG TAB PO SCH ×2 (08:20→13:45)
--- NOTE | 2018-06-22 09:12 | PRG ---
DATE OF SERVICE: 06/22/2018 SUBJECTIVE: Mr. Ewing is a 27-year-old male who is undergoing maintenance hemodialysis. He was initially admitted for uremic signs and symptoms. I am at the bedside supervising his dialysis. He is doing well. We are waiting for outpatient dialysis placement. PHYSICAL EXAMINATION: VITAL SIGNS: Blood pressure 112/76, heart rate 73, respiratory rate 18, temperature 97.9, O2 sat 94% . GENERAL: Awake, alert, comfortable, not in distress. SKIN: Adequate turgor. HEENT: Pinkish conjunctivae, anicteric sclerae. NECK: No neck mass, no carotid bruits, no JVD. CHEST: No deformities. LUNGS: Clear breath sounds, no wheezing, no crackles. HEART: Normal sinus rhythm. No murmur, no gallops, no rubs. ABDOMEN: Globular, soft, nontender, no masses. EXTREMITIES: No edema. MEDICATIONS: 06/22/2018 - Reviewed. LABORATORY DATA: 06/19/2018 - White count 1.5, hemoglobin 9.1. Sodium 133, potassium 5, chloride 97 , carbon dioxide 21, BUN 92, creatinine 10.1, calcium 7.5. ASSESSMENT AND PLAN: 1. End-stage renal disease. Continue current hemodialysis regimen. Tolerating the said regimen. F luid removal as tolerated. We will train this patient for peritoneal dialysis as an outpatient. 2. Anemia, on weekly Epogen. 3. Systemic lupus erythematosus. The patient will be following up with his lupus doctor upon discha
[2018-06-22] MEDS: Docusate 100 MG CAP PO SCH (09:20)
--- NOTE | 2018-06-22 10:22 | PDOC.PN ---
- Subjective Encounter Start Date: 06/22/18 Encounter Start Time: 09:15 pt seen in HD room, Patient seen and examined. No new complaints. No overnight events - Objective Resuscitation Status: Resuscitation Status FULL:Full Resuscitation MAR Reviewed: Yes Vital Signs & Weight: Vital Signs (12 hours) Temp Pulse Resp BP Pulse Ox 06/22/18 07:32 97.9 F 73 18 112/76 94 L Weight Admit Weight 131 lb 8 oz Weight 130 lb I&O: 06/21/18 06/22/18 06/23/18 06:59 06:59 06:59 Intake Total 1450 750 Balance 1450 750 Result Diagrams: 06/19/18 04:54 06/19/18 04:54 Phys Exam - Physical Examination Constitutional: NAD HEENT: PERRLA, moist MMs, sclera anicteric Neck: no JVD, supple Respiratory: no wheezing, no rales, no rhonchi Cardiovascular: RRR, no significant murmur, no rub Gastrointestinal: soft, non-tender, no distention, positive bowel sounds Musculoskeletal: no edema, pulses present Neurological: non-focal, normal sensation, moves all 4 limbs Psychiatric: normal affect, A&O x 3 Skin: no rash, normal turgor Dx/Plan (1) Anemia of renal disease Code(s): D63.1 - ANEMIA IN CHRONIC KIDNEY DISEASE Status: Chronic (2) End-stage renal disease needing dialysis Code(s): N18.6 - END STAGE RENAL DISEASE; Z99.2 - DEPENDENCE ON RENAL DIALYSIS Status: Chronic (3) Pancytopenia Code(s): D61.818 - OTHER PANCYTOPENIA Status: Chronic (4) Secondary hyperparathyroidism of renal origin Code(s): N25.81 - SECONDARY HYPERPARATHYROIDISM OF RENAL ORIGIN Status: Chronic (5) Systemic lupus Code(s): M32.9 - SYSTEMIC LUPUS ERYTHEMATOSUS, UNSPECIFIED Status: Chronic Qualifiers: Systemic lupus erythematosus organ involvement: glomerular disease - Plan cont current plan of care, web content & social media manager * medication reviewed as below * symptomatic treatment * continue HD as per nephrology * waiting on outpt HD arrangement, clinical case manager is working on it. Review of Systems - Review of Systems Eyes: negative: Pain, Vision Change, Conjunctivae Inflammation, Eyelid Inflammation, Redness, Other ENT: negative: Ear Pain, Ear Discharge, Nose Pain, Nose Discharge, Nose Congestion, Mouth Pain, Mouth Swelling, Throat Pain, Throat Swelling, Other Respiratory: negative: Cough, Dry, Shortness of Breath, Hemoptysis, SOB with Excertion, Pleuritic Pain, Sputum, Wheezing Cardiovascular: negative: chest pain, palpitations, orthopnea, paroxysmal nocturnal dyspnea, edema, light headedness, other Gastrointestinal: negative: Nausea, Vomiting, Abdominal Pain, Diarrhea, Constipation, Melena, Hematochezia, Other Genitourinary: negative: Dysuria, Frequency, Incontinence, Hematuria, Retention , Other Musculoskeletal: negative: Neck Pain, Shoulder Pain, Arm Pain, Back Pain, Hand Pain, Leg Pain, Foot Pain, Other Skin: negative: Rash, Lesions, Karl, Bruising, Other - Medications/Allergies Allergies/Adverse Reactions: Allergies Allergy/AdvReac Type Severity Reaction Status Date / Time promethazine [From Phenergan] Allergy Verified 06/07/18 05:36 Medications: Current Medications Acetaminophen (Tylenol) 1,000 mg PO Q6H PRN PRN Reason: Moderate to Severe Pain (6-10) Last Admin: 06/14/18 04:01 Dose: 1,000 mg Artificial Tears (Tears Naturale) 0 drop EA EYE PRN PRN PRN Reason: Dry Eyes Bisacodyl (Dulcolax) 10 mg PO DAILYPRN PRN PRN Reason: Constipation Last Admin: 06/11/18 12:43 Dose: 10 mg Calcitriol (Rocaltrol) 0.25 mcg PO DAILY [facility] Last Admin: 06/21/18 08:54 Dose: 0.25 mcg Calcium Carbonate (Tums) 1,000 mg PO BID-[facility] Last Admin: 06/21/18 17:28 Dose: 1,000 mg Cyclobenzaprine HCl (Flexeril) 5 mg PO TID PRN PRN Reason: Muscle Spasm Last Admin: 06/18/18 22:59 Dose: 5 mg Docusate Sodium (Colace) 100 mg PO BID [facility] Last Admin: 06/21/18 20:33 Dose: 100 mg Epoetin Aj (Procrit) 7,500 units SC Q7D [facility] Last Admin: 06/21/18 08:54 Dose: 7,500 units Ferrous [facility]) [facility] Last Admin: 06/21/18 17:28 Dose: 325 mg Guaifenesin (Robitussin Sf) 200 mg PO Q4H PRN PRN Reason: Cough Hydralazine HCl (Apresoline) 10 mg SLOW IVP Q4H PRN PRN Reason: Systolic BP > 180 Lactulose (Lactulose) 20 gm PO DAILYPRN PRN PRN Reason: Constipation Loperamide HCl (Imodium) 2 mg PO PRN PRN PRN Reason: Diarrhea/Loose Stools Mineral Oil/White Petrolatum (Eucerin Cream) 0 gm TOP BIDPRN PRN PRN Reason: Dry Skin Ondansetron HCl (Zofran) 4 mg IVP Q6H PRN PRN Reason: Nausea/Vomiting Last Admin: 06/12/18 13:02 Dose: 4 mg Ondansetron HCl (Zofran Odt) 4 mg PO Q6H PRN PRN Reason: Nausea/Vomiting Phenol (Chloraseptic [place] 180 Ml Bot) 0 ml PO PRN PRN PRN Reason: Sore Throat Polyethylene Glycol (Miralax) 17 gm PO DAILYPRN PRN PRN Reason: Constipation Sevelamer Carbonate (Renvela) 1,600 mg PO TID-WM [facility] Last Admin: 06/21/18 17:28 Dose: 1,600 mg Sodium Chloride (Flush - Normal Saline) 10 ml IVF Q12HR [facility] Last Admin: 06/21/18 20:33 Dose: Not Given Sodium Chloride (Flush - Normal Saline) 10 ml IVF PRN PRN PRN Reason: Saline Flush Sodium Chloride ([place] Nasal [place] 0.65%) 0 ml EA NARE QIDPRN PRN PRN Reason: Nasal Congestion Temazepam (Restoril) 15 mg PO HSPRN PRN PRN Reason: Insomnia Tramadol HCl (Ultram) 50 mg PO Q6H PRN PRN Reason: Pain Last Admin: 06/12/18 08:02 Dose: 50 mg
[2018-06-22] MEDS ORDERED: Heparin 10,000 UNITS/ 10 ML VIAL ONE (12:00)
--- NOTE | 2018-06-22 12:42 | DIS ---
DATE OF ADMISSION: 06/06/2018 DATE OF DISCHARGE: 06/22/2018 PRIMARY CARE PHYSICIAN: [facility] call admission. DISCHARGE DISPOSITION: Home. PRIMARY DISCHARGE DIAGNOSIS: End-stage renal disease, started hemodialysis during this admission. SECONDARY DISCHARGE DIAGNOSES: Anemia of renal disease, secondary hyperparathyroidism of renal origi n, pancytopenia due to systemic lupus erythematosus, lupus nephritis resulted to end-stage renal dise ase. PRIMARY PROCEDURE/OPERATION: Dr. Parr performed dialysis access with a tunneled hemodialysis otilia ter placement, laparoscopic peritoneal dialysis catheter placement. RADIOLOGICAL INVESTIGATION: Patient had several chest x-rays while in hospital. Echocardiography sh owed normal EF, diastolic dysfunction. SIGNIFICANT LABORATORY DATA: WBC 1.5, hemoglobin 9.1, platelet 133. INR 1.1. Sodium 133, creatinin e 10.12, calcium 7.5, phosphorus 9.2. PTH 1301, albumin 3.2. Immunology consistent with TALI positiv e, compliment low, serology consistent with negative hepatitis profile. Blood culture, urine culture negative. DISCHARGE MEDICATIONS: Rocaltrol 0.25 mcg p.o. daily, Tums 500 mg p.o. t.i.d., ferrous sulfate 325 m g p.o. daily, Renvela 1600 mg p.o. t.i.d. CONTRAINDICATIONS: None. CODE STATUS: FULL CODE. INPATIENT TREATMENT TECHNICIAN: Dr. Causey was following while in hospital. TEST RESULTS PENDING ON DISCHARGE: None. ALLERGIES: PROMETHAZINE. DISCHARGE PLAN: Post hospital, the patient is strongly advised to make appointment with Rheumatology . Patient will follow up with Dr. Parr in 2-3 weeks. The patient will follow up with Dr. Causey as i nstructed. HOSPITAL COURSE: A 27-year-old male who was admitted in our hospital on 06/06/2018. Unfortunately, I am not seeing any H&P dictated during this admission. I am not sure who was at the admitting physi moriah when patient was admitted. The patient has underlying systemic lupus erythematosus. Unfortunately, this patient is not able to follow up with Rheumatology and he already had lupus nephritis and chronic kidney failure from lupus. The patient presented to the hospital with uremia symptoms. Dr. Causey was consulted and he had signi ficantly abnormal renal function. He was needing dialysis. Dr. Causey consulted Dr. Parr who did merlyn lysis access. During this admission, patient had tunneled hemodialysis catheter placement as well as peritoneal dialysis catheter placement. Echocardiography was unremarkable. The patient was getting maintenance hemodialysis while in hospital through Dr. Causey. The patient stayed in the hospital for several days because he had difficulty getting arrangement for outpatient hemodialysis. Finally, wit h the help of caseworker, he has approval for arrangement for hemodialysis in [place] with [facility]. We are starting above-mentioned medication upon discharge. He will follow up with his primary c are physician, Dr. Causey as well as Dr. Parr. Patient has underlying lupus and that is why we advise d him to follow up with Rheumatology for chronic lupus care. The patient is seen and examined at bedside today. Please see my progress note from today for furthe r detail.
[2018-06-22] MEDS: Calcitriol 0.25 MCG CAP PO SCH (13:45)
[2018-06-22 13:48] VITALS: BP 115/78; TEMP 97.7
[2018-06-22 14:37] VITALS: BMI 18.6
== END 2018-06-22 16:00 | disposition home or self-care (01) | DRG 674 ==
LOC: ERS 17:40 → ONC 21:30 → 2SW 06-07 04:54 → T4-B 06-08 17:18
PROVIDERS: ADMIT Internal Medicine; ATTEND Internal Medicine
PROC: 0WHG43Z Insertion of Infusion Device into Peritoneal Cavity, Percutaneous Endoscopic Approach (ICD-10-PCS; principal; 2018-06-09)
PROC: 05HM33Z Insertion of Infusion Device into Right Internal Jugular Vein, Percutaneous Approach (ICD-10-PCS; 2018-06-09)
PROC: 30233N1 Transfusion of Nonautologous Red Blood Cells into Peripheral Vein, Percutaneous Approach (ICD-10-PCS; 2018-06-12)
PROC: 5A1D70Z Performance of Urinary Filtration, Intermittent, Less than 6 Hours Per Day (ICD-10-PCS; 2018-06-22)
DX: N18.6 End stage renal disease (principal); N25.81 Secondary hyperparathyroidism of renal origin; D61.818 Other pancytopenia; M32.14 Glomerular disease in systemic lupus erythematosus; Z96.659 Presence of unspecified artificial knee joint; M32.9 Systemic lupus erythematosus, unspecified; D72.819 Decreased white blood cell count, unspecified; N25.0 Renal osteodystrophy; E83.39 Other disorders of phosphorus metabolism; E83.51 Hypocalcemia; D69.6 Thrombocytopenia, unspecified; D63.1 Anemia in chronic kidney disease
CPT/HCPCS: 36415; 36430; 36556; 71045; 74019; 80048; 80053; 80069; 83516; 83970; 85025; 85610; 85730; 86038; 86160; 86225; 86235; 86376; 86580; 86704; 86706; 86803; 86850; 86900; 86901; 87040; 87086; 87340; 90935; 93005; 93306; 93970; 96374; A4216; C1752; C1769; G0257; G0365; J0670; J1642; J1644; J1756; J2001; J2405; J2704; J3010; J3370; J7050; P9016; Q4081

== ENCOUNTER 2018-07-11 14:57 | Emergency (ER) | payer OTHER | END 2018-07-11 16:45 | disposition home or self-care (01) | LOC: ERS 14:57 | DX: K64.4 Residual hemorrhoidal skin tags (principal) | CPT/HCPCS: 99282 ==

== ENCOUNTER 2018-07-12 22:41 | Inpatient (IN) | payer OTHER ==
[2018-07-12 23:12] LABS: #Lymphocytes 0.4 thou/uL (1.20-3.40); #Monocytes 0.1 thou/uL (0.11-0.59); #Neutrophils 3.6 thou/uL (1.40-6.50); %Eosinophils 0.3 % (0.0-10.0); %Lymphocytes 9.7 % (21.0-51.0); %Monocytes 3.4 % (0.0-10.0); %Neutrophils 86.6 % (42.0-75.0); Hemoglobin 9.2 g/dL (14.0-18.0); Mean Corpuscular Volume 91.1 fL (78.0-98.0); Mean Platelet Volume 8.5 fL (7.4-10.4); Platelet Count 209 thou/uL (130-400); RBC Distribution Width 12.4 % (11.5-14.5); Red Blood Cell (RBC) Count 2.96 mill/uL (4.70-6.10); White Blood Cell (WBC) Count 4.2 thou/uL (4.8-10.8)
--- NOTE | 2018-07-12 23:22 | RAD ---
SINGLE VIEW OF THE CHEST: 07/12/18 COMPARISON: 06/09/18 HISTORY: Low blood pressure after dialysis and dyspnea. FINDINGS: Single view of the chest shows an enlarged cardiomediastinal silhouette. This is stable in size. Ther e is a dialysis catheter with its tip in the superior vena cava. Increased interstitial markings are present. There may be superimposed air space opacities which could represent pulmonary edema. No pleu ral effusion is seen. IMPRESSION: Diffuse interstitial markings may represent pulmonary edema. POS: [facility]
[2018-07-12 23:33] LABS: ALT (SGPT) 11 U/L (8-55); AST (SGOT) 21 U/L (5-34); Albumin 1.9 g/dL (3.5-5.0); Alkaline Phosphatase 38 U/L (40-150); Anion Gap 12 mmol/L (10-20); BUN (Urea Nitrogen) 44 mg/dL (8.9-20.6); Bilirubin, Total 0.3 mg/dL (0.2-1.2); Calc. Creatinine Clearance 0 mL/min (70-130); Calcium 7.3 mg/dL (7.8-10.44); Carbon Dioxide 30 mmol/L (22-29); Chloride 98 mmol/L (98-107); Estimated GFR-MDRD 9; Globulin 2.4 g/dL (2.4-3.5); Glucose 115 mg/dL (70-105); Potassium 4.2 mmol/L (3.5-5.1); Protein, Total 4.3 g/dL (6.0-8.3); Sodium 136 mmol/L (136-145)
[2018-07-12] MEDS ORDERED: Acetaminophen 500 MG TAB ONE (23:53)
[2018-07-12] MEDS ORDERED: Piperacillin/Tazobactam 4.5 GM VIAL ONE (23:53)
[2018-07-13] MEDS ORDERED: Vancomycin HCl 750 MG in Sodium Chloride 0.9% 250 ML 250 ML IVPB SCH (00:15)
--- NOTE | 2018-07-13 01:01 | PDOC.FPRHP ---
- History of Present Illness Chief Complaint: weakness and fatigue History of Present Illness: This is a 27yo M with pmh of SLE with ESRD on Dialysis MWF presenting for a 2 day history of worsening generalized fatigue and weakness. Pt reports he went to dialysis yesterday and was found to be hypotensive and so presented to the ED. On presentation Pt was febrile at 102.4 and tachycardic in the 130s. WBC 4.5 (pt has hx of pancytopenia). Pt denies any sob or cp, no nausea vomiting, no dysuria no abdominal pain. ED Course: CXR- possible bilateral pulm edema, WBC 4.5, lactate .07 - Allergies/Adverse Reactions Allergies Allergy/AdvReac Type Severity Reaction Status Date / Time promethazine [From Phenergan] Allergy Verified 07/13/18 07:16 - Home Medications Medication Instructions Recorded Confirmed Type Calcitriol [Rocaltrol] 0.25 mcg PO DAILY #30 cap 06/22/18 07/13/18 Rx Calcium Carbonate [Tums] 500 mg PO TID #90 tab 06/22/18 07/13/18 Rx Ferrous Sulfate [Feosol] 325 mg PO DAILY #30 tab 06/22/18 07/13/18 Rx Dicyclomine [Bentyl] 10 mg PO DAILY 07/13/18 07/13/18 History Docusate [Colace] 100 mg PO BID 07/13/18 07/13/18 History traMADol HCl [Tramadol HCl] 50 mg PO BID PRN 07/13/18 07/13/18 History - History PMHx: SLE, SLE nephropathy ESRD on dialysis MWF PSHx: HD port placement, PD port placement, appendectomy FHx: DM, SLE Social: denies smoking/EtOH/drugs - Review of Systems General: reports: fatigue, other (weakness). denies: fever/chills Eyes: denies: vision changes ENT: denies: nasal congestion Respiratory: denies: cough, shortness of breath Cardiovascular: denies: chest pain, palpitation Gastrointestinal: denies: nausea, vomiting Skin: denies: rashes, lesions Musculoskeletal: denies: pain, tenderness - Vital signs BP: [100/46] HR: [97] RR: [20] Tmax: [102.4] Pox: [95]% on [RA] Wt: [55] - Physical Exam Constitutional: NAD, awake, alert and oriented HEENT: normocephalic and atraumatic, EOMI, grossly normal vision, normal nasal mucosa Neck: trachea midline Chest: no-tender to palpation, other (HD port non tender to palpation no erythema) Heart: RRR, normal S1/S2 Lungs: CTAB, no respiratory distress Abdomen: soft, non-tender, other (peritoneal dialysis port non tender to palpation no erythema) Musculoskeletal: normal tone Neurological: no focal deficit Skin: no rash/lesions, good turgor Psychiatric: normal mood and affect FMR H&P: Results - Labs Result Diagrams: 07/12/18 22:54 07/12/18 22:54 Lab results: WBC 4.2 thou/uL (4.8-10.8) L 07/12/18 22:54 Hgb 9.2 g/dL (14.0-18.0) L 07/12/18 22:54 Hct 26.9 % (42.0-52.0) L 07/12/18 22:54 MCV 91.1 fL (78.0-98.0) 07/12/18 22:54 Plt Count 209 thou/uL (130-400) 07/12/18 22:54 Neutrophils % 86.6 % (42.0-75.0) H 07/12/18 22:54 Sodium 136 mmol/L (136-145) 07/12/18 22:54 Potassium 4.2 mmol/L (3.5-5.1) 07/12/18 22:54 Chloride 98 mmol/L (98-107) 07/12/18 22:54 Carbon Dioxide 30 mmol/L (22-29) H 07/12/18 22:54 BUN 44 mg/dL (8.9-20.6) H 07/12/18 22:54 Creatinine 7.44 mg/dL (0.6-1.3) H 07/12/18 22:54 Glucose 115 mg/dL (70-105) H 07/12/18 22:54 Lactic Acid 0.7 mmol/L (0.5-2.2) 07/12/18 22:54 Calcium 7.3 mg/dL (7.8-10.44) L 07/12/18 22:54 Total Bilirubin 0.3 mg/dL (0.2-1.2) 07/12/18 22:54 AST 21 U/L (5-34) 07/12/18 22:54 ALT 11 U/L (8-55) 07/12/18 22:54 Alkaline Phosphatase 38 U/L (40-150) L 07/12/18 22:54 Serum Total Protein 4.3 g/dL (6.0-8.3) L 07/12/18 22:54 Albumin 1.9 g/dL (3.5-5.0) L 07/12/18 22:54 FMR H&P: A/P - Problem List (1) Anemia of renal disease Current Visit: No Status: Chronic Code(s): D63.1 - ANEMIA IN CHRONIC KIDNEY DISEASE (2) End-stage renal disease needing dialysis Current Visit: No Status: Chronic Code(s): N18.6 - END STAGE RENAL DISEASE; Z99.2 - DEPENDENCE ON RENAL DIALYSIS (3) Systemic lupus Current Visit: No Status: Chronic Code(s): M32.9 - SYSTEMIC LUPUS ERYTHEMATOSUS, UNSPECIFIED Qualifiers: Systemic lupus erythematosus organ involvement: glomerular disease - Plan 27yo M with hx of SLE with ESRD on dialysis presenting with weakness meeting sirs criteria Suspected Sepsis A- positive sirs criteria but without source, pt is immunocompromised and wbc is 4.5. lactate .7 P- Vanc and Zosyn renally dosed -UCx and UA -Cultures pulled from HD and PD ports -flu and hiv -easy LR at 75ml/hr ESRD on hemodialysis MWF A- Pt reports having dialysis tuesday P- Notify Dr. Causey - resume MWF schedule FMR H&P: Upper Level - Pertinent history 27 year old male with history of lupus nephritis, ESRD on HD MWF who presents with several days of fatigue. He was found to be hypotensive at dialysis which prompted him to seek evaluation in ED. He had a Tmax of 102 in ED and was tachycardic to 110s. - Pertinent findings General: alert and oriented x 3 Heart: tachycardic, regular rhythm. Lungs: Clear to auscultation bilaterally. Abdomen: soft, non-tender PD catheter with no erythema or drainage surrounding it. Skin: no evidence of infection Extremites: No joint erythema; normal bulk and tone. - Plan Date/Time: 07/13/18 0101 Crystal Vega, have evaluated this patient and agree with findings/plan as outlined by sports internship resident. Pertinent changes/additions are listed here. Sepsis without source. - Peripheral BCx, Blood from tunneled cath, and peritoneal fluid aspirates obtained. - gentle fluid boluses - Tylenol for fever/pain - Vanc and Zosyn renally dosed. - possibly secondary to lupus flare, although pt denies joint pain or other symptoms consistent with typical lupus flares for him. ESRD on HD MWF - will discuss with Dr. Causey to initiate HD. - renal dose medication. SLE - not on any medications. Anemia of chronic kidney disease. Attending Addendum - Attending Addendum Date/Time: 07/13/18 4751 I personally evaluated the patient and discussed the management with Dr. Simms and Dr. Chau I agree with the History, Examination, Assessment and Plan documented above with any addition or exceptions noted below. 27 yo male with history of untreated SLE with ESRD on HD presents to ER with hypotension and fever. Patient only complains of low BP with fatigue. Denies all other symptoms. No known sick contacts. Recently with replaced emergent subclavian tunneled cath and PD port. No history of cellulitis. No URI, , or GI symptoms. Blood cultures pending. BP responding to gentle IVF replacement. Emperic antibx started. No neuropenia at present but previous history of. No evidence of fungal exposure or travel. Will repeat HIV. Due to state of fever likely not SLE flare. Patient also reports joint pain with flare and is currently without. Will monitor overnight in IMCU due to liable BP. Colon culture. Area of concern on CXR in right lower lobe but likely only edema. Consider repeat after HD vs CT scan. Consider ECHO to rule out large vegetation. Repeat blood cultures with fevers. Procal pending. ABrayMD
[2018-07-13 04:26] VITALS: BMI 18.1
[2018-07-13] MEDS ORDERED: Vancomycin HCl 1 GM in Premix Bag 1 BAG IVPB PRN (04:41)
[2018-07-13] MEDS ORDERED: Vancomycin HCl 750 MG in Sodium Chloride 0.9% 250 ML 250 ML IVPB PRN (04:41)
[2018-07-13] MEDS ORDERED: Docusate 100 MG CAP PO PRN (04:41)
[2018-07-13] MEDS ORDERED: HOLD VANCOMYCIN FOR LEVEL >20 FS PRN (04:42)
[2018-07-13] MEDS ORDERED: Vancomycin HCl 500 MG in Sodium Chloride 0.9% 100 ML IVPB PRN (04:42)
[2018-07-13] MEDS ORDERED: Vancomycin HCl 250 MG in Sodium Chloride 0.9% 100 ML IVPB PRN (04:42)
[2018-07-13 05:54] LABS: HIV (1/2) Antibody/Antigen Non-Reactive (NonReactive); HIV 1/2 INDEX 0.08 S/CO (<1.00)
[2018-07-13] MEDS: Piperacillin/Tazobactam 2.25 GM in Sodium Chloride 0.9% 100 ML IVPB SCH ×3 (06:22→21:19)
[2018-07-13] MEDS: Lactated Ringer's 1,000 ML IV SCH ×2 (06:23→21:26)
[2018-07-13] MEDS ORDERED: Vancomycin Sliding Scale 1 EACH IVPB SCH (09:00)
[2018-07-13 09:38] LABS: Vancomycin, Random 18.3 ug/mL (See Comment)
[2018-07-13] MEDS: Dicyclomine 10 MG CAP PO SCH (09:44)
[2018-07-13] MEDS: Calcitriol 0.25 MCG CAP PO SCH (09:44)
[2018-07-13] MEDS: Heparin 5,000 UNITS/ML VIAL SC SCH ×3 (09:45→21:18)
[2018-07-13] MEDS: Ferrous Sulfate 325 MG TAB PO SCH (09:45)
--- NOTE | 2018-07-13 09:57 | CON ---
DATE OF CONSULTATION: 07/13/2018 HISTORY OF PRESENT ILLNESS: Mr. Ewing is a 27-year-old male with ESRD from lupus nephritis a nd admitted for generalized malaise with hypotension. There was also ? of fever. He underwent hemod ialysis yesterday and he dropped his blood pressure. During the interim, the patient is being traine d for peritoneal dialysis, but the PD catheter seems to be nonfunctional. He was supposed to see a lore severino for further evaluation of this PD catheter. Also at that time he was noted to have developed some degree of ascites. My feeling is that this patient may have ascites from his previous history o f generalized anasarca from his nephrotic syndrome. We are being consulted for his maintenance hemodialysis. REVIEW OF SYSTEMS: Positive for generalized malaise. Positive for abdominal swelling/ascites. No n ausea, no vomiting. Decreased appetite, decreased energy level. No headache, no diplopia, ? of feve r. No hematochezia, no melena, no hematemesis, no dysuria, no urinary frequency, no sore throat, no headache, no hematochezia, no melena, no hematemesis. MEDICATIONS: Currently on Rocaltrol 0.25 mcg daily, Bentyl 10 mg daily, Colace 100 mg p.o. b.i.d., f errous sulfate 325 mg daily, heparin 5000 units subcu t.i.d., lactated ringer 75 mL per hour, status post vancomycin, Renvela 800 mg t.i.d. with meals, Zosyn 2.25 grams IV q.8h. PAST MEDICAL HISTORY: 1. ESRD from diabetic nephropathy. 2. Systemic lupus erythematosus. PAST SURGICAL HISTORY: 1. Status post kidney biopsy. 2. Status post thoracentesis of pleural effusion secondary to lupus nephritis. 3. Status post left knee replacement. 4. Status post laparoscopic appendectomy for perforated appendix. 5. Status post cuffed hemodialysis catheter placement. 6. Status post PD catheter placement. SOCIAL HISTORY: The patient lives in [place]. Single, lives with his mother. 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 Currently, not working. No history of smoking, no drug abuse. Status post multiple blood tra nsfusions. He has 5 siblings. ALLERGIES: None. TRAUMA: None. IMMUNIZATIONS: Up to date. HOSPITALIZATIONS: Please see past medical history. FAMILY HISTORY: Positive family history of ESRD. PHYSICAL EXAMINATION: VITAL SIGNS: Blood pressure is 95/70, heart rate 70. GENERAL: Awake, supine, comfortable, lethargic, not in overt distress. SKIN: Adequate turgor. HEENT: Slightly pale conjunctivae, anicteric sclerae. NECK: No neck mass, no carotid bruits, no JVD. CHEST: No deformities. LUNGS: Decreased breath sounds, no wheezing, no crackles. HEART: Normal sinus rhythm. No murmur, no gallops or rubs. ABDOMEN: Globular, soft, nontender, no masses. Positive for PD catheter. EXTREMITIES: Trace edema, no deformities. LABORATORY: 07/12/2018 - White count 4.2, hemoglobin 9.2. Sodium 136, potassium 4.2, chloride 98, c arbon dioxide 30, BUN 44, creatinine 7.44, glucose 115, calcium 7.3, AST 21, ALT 11. 07/12/2018 - Chest x-ray, increased interstitial markings - ? pulmonary edema. ASSESSMENT AND PLAN: 1. End-stage renal disease. We will continue current Tuesday, Tuesday, Tuesday hemodialysis regimen with this patient. Fluid removal as tolerated. Please note that the PD catheter is not working. F or that reason, a surgical consult will be done. 2. Ascites - this could be related from his underlying generalized anasarca from lupus nephritis/nep hrotic syndrome in the past. Continue supportive care. I will at least image the abdomen to look at the hepatobiliary tract. 3. ? Congestive heart failure - cardiac echo to be done today. 4. Anemia. Continue weekly Epogen 7500 units every week. Overall, I agree with current management.
[2018-07-13] MEDS ORDERED: Epoetin (ESRD) 20,000 UNITS/ML SC SCH (10:00)
--- NOTE | 2018-07-13 10:51 | ULT ---
LIMITED ABDOMINAL ULTRASOUND: HISTORY: Evaluate for ascites. COMPARISON: None. TECHNIQUE: Targeted sonographic images of the abdomen are performed. FINDINGS: Targeted sonographic images do not demonstrate any significant intraabdominal/intraperitoneal free fl uid. There is a trace amount of free fluid in the right lower quadrant. Fluid does not warrant or allow for adequate paracentesis at this time. IMPRESSION: Minimal fluid, as above. POS: [facility]
--- NOTE | 2018-07-13 11:08 | CON ---
DATE OF CONSULTATION: 07/13/2018 REASON FOR CONSULTATION: IMCU placement. HISTORY OF PRESENT ILLNESS: Greg is a 27-year-old male who came in from a dialysis unit yesterda y with fatigue and hypotension. Medical record indicates that he was febrile at the time of admissio n. He has both peritoneal dialysis and a hemodialysis catheter in place. His mom says that the hemo dialysis catheter has been in for about a month. The peritoneal dialysis catheter has been longer, b ut is no longer functional. PAST MEDICAL HISTORY: 1. Lupus. 2. Nephropathy. 3. End-stage renal disease requiring hemodialysis. Formerly he was on peritoneal dialysis. PAST SURGICAL HISTORY: See above. Also remarkable for appendectomy. FAMILY HISTORY: Remarkable for diabetes and lupus. SOCIAL HISTORY: Nonsmoker. Does not consume alcohol. Does not use illicit drugs. PHYSICAL EXAMINATION: VITAL SIGNS: Temperature 98.1, pulse 94, respiration 16, O2 sat 96% on room air, blood pressure 83/5 1. GENERAL: He is currently sleeping. HEENT: Unremarkable. NECK: No JVD. LUNGS: He has a tunneled dialysis catheter in his right IJ. CARDIAC: S1, S2 regular, 2/6 systolic murmur. LUNGS: Clear. ABDOMEN: Peritoneal dialysis catheter noted. Not very distended. EXTREMITIES: No edema. LABORATORY DATA: Sodium 136, potassium 4.2, chloride 98, CO2 30, BUN 44, creatinine 7.4, glucose 115 . White blood cell count 4.2, hematocrit 26.9, platelet count 209. Chest x-ray shows question of a right lower lobe infiltrate. He has a hemodialysis catheter that is obvious. No evidence of pneumothorax. ASSESSMENT: 1. Hypotension. This is either volume depletion or sepsis or a combination of the two. 2. Lupus. 3. End-stage renal disease requiring hemodialysis. PLAN: 1. Agree with the empiric antibiotics. 2. Fluid - judicious. 3. Await Dr. Causey's input. 4. Likely can go to the floor later today if his blood pressure remains stable.
[2018-07-13] MEDS ORDERED: Acetaminophen 325 MG TAB PO PRN (17:39)
--- NOTE | 2018-07-13 18:02 | HP ---
HISTORY OF PRESENT ILLNESS: Greg Ewing is a 27-year-old male, lupus, end-stage renal disease, has previously been on peritoneal dialysis. Dr. Carr placed his peritoneal dialysis catheter. Olamide alfonso insisted on its removal soon after his father . The patient had restarted dialysis. I pl aced a new peritoneal dialysis catheter laparoscopically, 06/09/2018. Omentopexy was performed. The patient had a prior open appendectomy. Adhesiolysis was undertaken, taking down omentum from the pe lvis and using the LigaSure. The patient just recently began trying to use his peritoneal dialysis c atheter. Apparently the mechanical peritoneal dialysis catheter machine alarmed and then they did ev acuate mainly over 2 liters of dialysate fluid. Activation was using the catheter, but still it woul d now . X-rays obtained revealed the catheter to be malpositioned. Dr. Causey has asked me to see him regarding revision laparoscopically and plans to do that tomorrow. The patient has poor veins b y previous marking ultrasound, 06/08/2018. Marking ultrasound revealed possibly could have a basilic vein on the right. Unfortunately, he has an IV in his proximal forearm right. Would recommend this be removed immediately and IV established in his left arm. If this cannot be established, then I wo uld not place an IV and his dialysis catheter can be used intraoperatively. The patient was admitted this hospitalization because of feeling poorly. At the bedside, I have sugg ested the patient at his young age, consider a fistula formation with the understanding that I would not place a prosthetic graft at this time if veins were inadequate. He is young and will have a long road of dialysis and transplant will be a difficult issue and this patient with lupus and I wo uld recommend stagnation of the fistula. He may need a transposition ultimately but I would start wi th the fistulas with ever hospitalization his veins are being injured and potential to have a fistula is diminished. I have explained this to the patient and his mother and I have discussed with Dr. Marco Antonio brady. Tomorrow is to plan laparoscopic evaluation, possible revision of peritoneal dialysis catheter, possi ble placement of right arm fistula; however, if the patient refuses, we will of course just tend to t he peritoneal dialysis issue. The patient is difficult to discuss matters with and seems to have a p oor understanding and an interest in his condition. He has been reluctant to have a fistula in the p ast because his father was on dialysis and they were disturbed by the cosmetic appearance of the fist selma in the arm. ALLERGIES: PHENERGAN. TOBACCO: None. ALCOHOL: None. PAST MEDICAL HISTORY: Lupus nephritis, end-stage renal disease on maintenance dialysis, history of p eritoneal dialysis. SOCIAL HISTORY: Laparoscopic appendectomy ruptured appendix, knee replacement, thoracentesis, pleura l effusions, peritoneal dialysis catheters placed and removed and replaced. The patient was in [facility], lives with his family. He is not working. REVIEW OF SYSTEMS: Noncontributory. PHYSICAL EXAMINATION: VITAL SIGNS: 126 pounds, 18 BMI, 99.4, 104, and 116/64. HEENT: Unremarkable. LUNGS: Clear to auscultation. CARDIAC: Regular rate and rhythm without murmur or gallop. ABDOMEN: Soft, nontender, no masses. Peritoneal dialysis catheter with healthy exercise. EXTREMITIES: Unremarkable. Palpable radial pulse. IV proximal right forearm. ASSESSMENT AND PLAN: 1. End-stage renal disease, peritoneal dialysis catheter dysfunction, relying on hemodialysis cathet er. Plan laparoscopic revision of his PD catheter. I would recommend exploration to establish a fis anthony in his right arm; however, if he refuses that of course, we will not persist and we will just te nd to the PD catheter. 2. Lupus nephritis.
[2018-07-14 03:56] LABS: #Lymphocytes 0.4 thou/uL (1.20-3.40); #Monocytes 0.1 thou/uL (0.11-0.59); #Neutrophils 2.9 thou/uL (1.40-6.50); %Basophils 0.3 % (0.0-1.0); %Eosinophils 0.7 % (0.0-10.0); %Lymphocytes 10.2 % (21.0-51.0); %Neutrophils 84.9 % (42.0-75.0); Hemoglobin 7.2 g/dL (14.0-18.0); Mean Corpuscular HGB CONC 33.6 g/dL (32.0-36.0); Mean Corpuscular Hemoglobin 31.1 pg (27.0-31.0); Mean Corpuscular Volume 92.6 fL (78.0-98.0); Mean Platelet Volume 7.9 fL (7.4-10.4); Platelet Count 213 thou/uL (130-400); RBC Distribution Width 12.2 % (11.5-14.5); Red Blood Cell (RBC) Count 2.33 mill/uL (4.70-6.10); White Blood Cell (WBC) Count 3.5 thou/uL (4.8-10.8)
[2018-07-14 04:13] LABS: ALT (SGPT) 12 U/L (8-55); AST (SGOT) 23 U/L (5-34); Albumin 1.7 g/dL (3.5-5.0); Alkaline Phosphatase 40 U/L (40-150); Anion Gap 14 mmol/L (10-20); BUN (Urea Nitrogen) 62 mg/dL (8.9-20.6); Bilirubin, Total 0.2 mg/dL (0.2-1.2); Calc. Creatinine Clearance 9 mL/min (70-130); Calcium 7.3 mg/dL (7.8-10.44); Carbon Dioxide 22 mmol/L (22-29); Chloride 102 mmol/L (98-107); Estimated GFR-MDRD 7; Globulin 2.1 g/dL (2.4-3.5); Glucose 133 mg/dL (70-105); Potassium 4.3 mmol/L (3.5-5.1); Protein, Total 3.8 g/dL (6.0-8.3); Sodium 134 mmol/L (136-145)
[2018-07-14] MEDS: Piperacillin/Tazobactam 2.25 GM in Sodium Chloride 0.9% 100 ML IVPB SCH ×3 (05:44→22:08)
[2018-07-14] MEDS ORDERED: Fentanyl 100 MCG/2 ML VIAL ONE (06:40)
[2018-07-14] MEDS ORDERED: Bupivacaine HCl 0.5%/Epinephrine 1:200,000/PF 30 ml Vial ONE (07:12)
[2018-07-14] MEDS ORDERED: Heparin 10,000 UNITS/1 ML VIAL ONE (07:12)
[2018-07-14] MEDS ORDERED: Lidocaine 2% w/Epinephrine 1:200K 20 ML VIAL ONE (07:12)
[2018-07-14] MEDS ORDERED: Lidocaine 2% PF Inj 2 ML VIAL ONE (07:14)
[2018-07-14] MEDS ORDERED: Ondansetron HCl/PF 4 MG/2 ML Vial IVP PRN (08:49)
[2018-07-14] MEDS ORDERED: Epoetin (ESRD) 20,000 UNITS/ML SC SCH (09:00)
--- NOTE | 2018-07-14 09:15 | PDOC.FM ---
- Subjective Subjective: Pt recently out of surgery this morning for revision of PD catheter. Pt doing well. Denies any pain. Denies any acute events overnight. Denies any chest pain or SOB. Denies any joint pain. No fevers overnight. Pt wondering if he can eat. - Objective MAR Reviewed: Yes Vital Signs & Weight: Vital Signs (12 hours) Temp Pulse Resp BP Pulse Ox 07/14/18 05:50 99.5 F 117 H 18 126/71 95 07/14/18 02:45 99.6 F 105 H 16 112/68 96 07/13/18 22:00 99.1 F 103 H 16 113/68 97 Weight Admit Weight 57.153 kg Weight 58.655 kg I&O: 07/13/18 07/14/18 07/15/18 06:59 06:59 06:59 Intake Total 1190 Balance 1190 Result Diagrams: 07/14/18 03:39 07/14/18 03:39 Radiology Reviewed by me: Yes (diffuse interstitial markings may represent pulm edema) <Mitch Alvarez - Last Filed: 07/14/18 11:16> - Objective Vital Signs & Weight: Vital Signs (12 hours) Temp Pulse Resp BP Pulse Ox 07/14/18 15:51 97.4 F L 81 27 H 98/60 92 L 07/14/18 12:00 100 07/14/18 11:56 98.3 F 94 21 H 99/57 L 100 07/14/18 09:20 99 07/14/18 09:00 98.3 F 101 H 20 100/56 L 99 07/14/18 05:50 99.5 F 117 H 18 126/71 95 Weight Admit Weight 57.153 kg Weight 58.655 kg I&O: 07/13/18 07/14/18 07/15/18 06:59 06:59 06:59 Intake Total 1190 Balance 1190 Result Diagrams: 07/14/18 03:39 07/14/18 03:39 <Shanta Rocha - Last Filed: 07/14/18 17:50> Phys Exam - Physical Examination Constitutional: NAD HEENT: PERRLA, moist MMs Neck: no nodes, supple, full ROM Some mild rales. No crackles. Symmetric chest expansion Cardiovascular: RRR, no significant murmur, no rub Gastrointestinal: soft, non-tender, no distention, positive bowel sounds Incision site intact. No sign bleeding or drainage Musculoskeletal: no edema, pulses present Neurological: non-focal, moves all 4 limbs Psychiatric: normal affect, A&O x 3 Skin: no rash, normal turgor, cap refill <2 seconds <AntonioMitch - Last Filed: 07/14/18 11:16> Dx/Plan (1) Sepsis Code(s): A41.9 - SEPSIS, UNSPECIFIED ORGANISM Status: Acute (2) Anemia of renal disease Code(s): D63.1 - ANEMIA IN CHRONIC KIDNEY DISEASE Status: Chronic (3) End-stage renal disease needing dialysis Code(s): N18.6 - END STAGE RENAL DISEASE; Z99.2 - DEPENDENCE ON RENAL DIALYSIS Status: Chronic (4) Pancytopenia Code(s): D61.818 - OTHER PANCYTOPENIA Status: Chronic (5) Systemic lupus Code(s): M32.9 - SYSTEMIC LUPUS ERYTHEMATOSUS, UNSPECIFIED Status: Chronic Qualifiers: Systemic lupus erythematosus organ involvement: glomerular disease - Plan Plan: Sepsis without source. - Peripheral BCx, Blood from tunneled cath, and peritoneal fluid aspirates obtained. flu pending. - Recieved fluid yesterday. Have stopped for now. Will get dialysis today and tmrw. - Tylenol for fever/pain - Vanc and Zosyn renally dosed. - possibly secondary to lupus flare, although pt denies joint pain or other symptoms consistent with typical lupus flares for him. Will check complement levels to see if in flare -Dr. Parr thinks tunnel catheter is source of infection. Plan to remove later. will get extra dialysis Tomorrow as won't be able to start dialysis for a little bit due to revision of PD catheter. ESRD on HD MWF - Valentin consulted-Dr. Causey. Follow recs. Plan on dialysis. Consulted General Surgery-Keshav to try and revise his peritoneal dialysis catheter at this time. Pt denied fistula at this time. - renal dose medication. SLE - not on any medications. -If cx come back negative, likely SLE flare. Checking complement levels at this time Anemia of chronic kidney disease. Hgb trended from 9.2-7.2 today. No sign of bleeding from patient. No concern of acute bleed from nursing. Likely dilutional. On epo. Continue to trend <Mitch Alvarez - Last Filed: 07/14/18 11:16> Attending Addendum - Attending Addendum Date/Time: 07/14/18 1940 I personally evaluated the patient and discussed the management with Dr. Alvarez I agree with the History, Examination, Assessment and Plan documented above with any addition or exceptions noted below- Patient without complaints. Feeling better. Afebrile VSS. A/P: 1) ESRD on HD- pt had revision of PD catheter today. Surgery concerned that tunneled catheter may be infected and recommends removal after dialysis with replacement later in week. 2) Fever- cultures negative to date and fever resolved; Continue current abx. 3) Lupus- will check complement levels <Shanta Rocha - Last Filed: 07/14/18 17:50>
--- NOTE | 2018-07-14 09:18 | OP ---
DATE OF PROCEDURE: 07/14/2018 PREOPERATIVE DIAGNOSES: 1. End-stage renal disease. 2. Dysfunctional peritoneal dialysis catheter (drains well manually, but alarms sound mechanically). 3. Fever likely secondary to hemodialysis IJ catheter. 4. Lupus, poor veins for [place] fistula. Patient, however, has accessible possible basilic vein rig ht, although proximal forearm IV started this hospitalization and removed. The patient refuses a fis anthony attempt despite prolonged discussions with the patient, mother and with Nephrology. POSTOPERATIVE DIAGNOSES: 1. End-stage renal disease. 2. Dysfunctional peritoneal dialysis catheter (drains well manually, but alarms sound mechanically). 3. Fever likely secondary to hemodialysis IJ catheter. 4. Lupus, poor veins for [place] fistula. Patient, however, has accessible possible basilic vein rig ht, although proximal forearm IV started this hospitalization and removed. The patient refuses a fis anthony attempt despite prolonged discussions with the patient, mother and with Nephrology. PROCEDURE: 1. Removal of hemodialysis catheter (cuff freed, catheter left in place for hemodialysis today, to b e removed after hemodialysis. Patient is on vancomycin). 2. Laparoscopic revision of peritoneal dialysis catheter with #2 Ethibond sling sutures securing it to the pelvis. SURGEON: Dr. Nils Parr ANESTHESIA: General. Local 0.5% Marcaine with epinephrine 20 mL used. FINDINGS: Peritoneal dialysis catheter seemed to be functioning well, although it was angled up towa rds the right upper pelvis, lower abdomen. The patient had adhesions from prior surgery with transve rse mesocolon adherent to the abdominal wall and some filmy adhesions in the pelvis. PROCEDURE: The patient was taken to the operating room where under general anesthesia in supine posi tion, abdomen and catheter were prepared with ChloraPrep, draped in routine fashion. Bilateral far l ateral subcostal incision made through the old scars establishing pneumoperitoneum with a Veress need le replacing with a 5 port on one side under laparoscopic visualization placing a 5 port and the cont ralateral side. On the transverse colon and omentum adherent to the abdominal wall in the mid abdome n and a window made allowing me to visualize the pelvis. The peritoneal dialysis catheter was in an area free of adhesions, although directed up towards the lower abdomen and upper pelvis. Catheter wa s redirected into the pelvis and laparoscopic transabdominal sutures of 0 Ethibond placed x2 to secur e the catheter into the pelvis. It flushed easily with saline and aspirated easily and drained well, and it was flushed with heparinized saline solution 1000 units heparin per mL. The patient's abdomi nal cavity thoroughly irrigated with saline solution, irrigant evacuated. There were no other abnorm alities except for adhesions from prior surgery. There was 1 loop of small bowel adherent to the low er abdomen and upper pelvis junction. This was not taken down. Otherwise, the small bowel was free of adhesions and there was nothing interfering with function of the catheter in the lower pelvis. Ho pefully, placement in the lower pelvis will facilitate function. Irrigant and pneumoperitoneum evacu ated. All this instruments removed and all skin incisions approximated with subdermal 4-0 Monocryl a nd DermaGlue applied. A hemodialysis catheter freed cuff from the subcutaneous tissues and then sterile dressing applied. The patient tolerated the procedure well. Catheter was left in place for hemodialysis today and will be removed after hemodialysis. Last night prior to this operation, this morning I talked to the patient extensively, recommended a r ight arm fistula. He has suboptimal veins, but does potentially have a basilic vein that could be po ssibly functional for basilic vein transposition fistula. The patient is so young with lupus and choco tined for long-term dialysis. Unfortunately, a proximal volar forearm right IV was placed and immedi ately removed upon my consultation. This right arm should be saved for future dialysis access and no blood draws or IVs above his wrist performed. The patient, however, and his mother supportive of th e patient would not allow an attempted fistula during the same anesthesia. This is unfortunate. It is likely the veins will be thrombosed, fibrosed due to iatrogenic nursing extractor and wringer operator IV access an tecubital veins during multiple hospitalizations past, present and in the future. Dr. Causey, his nephr ologist talk to the patient and still he refused to have a fistula. The patient's father was on dial ysis and they are anxious and apprehensive about the cosmetic appearance of a fistula in the forearm long-term.
--- NOTE | 2018-07-14 09:26 | PRG ---
DATE OF SERVICE: 07/14/2018 SUBJECTIVE: The patient is doing reasonably well. His peritoneal dialysis catheter was revised toda y. PHYSICAL EXAMINATION: VITAL SIGNS: Temperature 99.5, pulse 117, respirations 18, O2 sat 95%, blood pressure 126/71. HEENT: Unremarkable. NECK: No JVD. He has a right IJ tunneled dialysis catheter. LUNGS: Clear. CARDIAC: S1 and S2 regular. ABDOMEN: Peritoneal dialysis catheter in place. EXTREMITIES: No clubbing, cyanosis, or edema. LABORATORY DATA: White blood cell count 3.5, hematocrit 21.6, platelet count 213. Sodium 134, potas sium 4.3, chloride 102, CO2 22, BUN 60, creatinine 9.6, glucose 133. ASSESSMENT: 1. Hypotension. 2. Lupus. 3. End-stage renal dialysis. PLAN: The patient is awaiting transfer out to the floor. He is continuing on antibiotics. His hemo dynamic status is okay. He will continue dialysis at the discretion of the Nephrology team. Pulmona ry will sign off. Please recall if further assistance needed.
[2018-07-14] MEDS ORDERED: Acetaminophen 500 MG TAB PO PRN ×2 (09:38→09:50)
[2018-07-14] MEDS ORDERED: traMADol HCl 50 MG TAB PO PRN ×2 (09:38)
[2018-07-14] MEDS: Calcitriol 0.25 MCG CAP PO SCH (10:09)
[2018-07-14] MEDS: Dicyclomine 10 MG CAP PO SCH (10:09)
[2018-07-14] MEDS: Heparin 5,000 UNITS/ML VIAL SC SCH ×3 (10:10→20:11)
[2018-07-14] MEDS: Ferrous Sulfate 325 MG TAB PO SCH (10:10)
--- NOTE | 2018-07-14 10:31 | PRG ---
DATE OF SERVICE: 07/14/2018 SUBJECTIVE: Mr. Ewing is a 27-year-old male with lupus nephritis, ESRD, currently on mainten ance hemodialysis. There was a problem with his PD catheter and this was addressed by Dr. Parr. Jostin Parr this morning went ahead and did an explored PD catheter due to it being dysfunctional. He adjusted an angle of the PD catheter towards the right upper pelvis. There were also adhesions from a prior surgery and he did adhesiolysis with this. The plan is to have this catheter after dialysis. My bias is to remove the catheter tomorrow. We will do another dialysis session, so this patient c an be catheter free for the next several days. As per Dr. Parr's plan, he will replace the hemodia lysis catheter this coming Tuesday. He would like us to hold using the PD catheter for one and a h freddy weeks. The patient voices no new complaints. PHYSICAL EXAMINATION: VITAL SIGNS: Blood pressure is 136/71, heart rate 117, respiratory rate 18, temperature 99.5, pulse ox 95%. GENERAL: Noted to be awake, supine, comfortable, not in overt distress SKIN: Adequate turgor. HEENT: Slightly pale conjunctivae, anicteric sclerae. NECK: No neck mass, no carotid bruits, no JVD. CHEST: No deformities. LUNGS: Clear breath sounds, no wheezing, no crackles. HEART: Normal sinus rhythm. No murmur, no gallops or rubs. ABDOMEN: Globular, soft, nontender. No masses. EXTREMITIES: No edema, no deformities. Positive for PD catheter. Positive for cuffed hemodialysis catheter. MEDICATIONS: Of 07/14/2018 reviewed. LABORATORY: Of 07/14/2018: White count 3.5, hemoglobin 7.2, hematocrit 21.6. Sodium 134, potassium 4.3, chloride 102, carbon dioxide 22, BUN 62, creatinine 9.67, glucose 133, calcium 7.3, albumin 1.7 . ASSESSMENT AND PLAN: 1. End-stage renal disease, stable. We will continue hemodialysis regimen on Tuesday, Tuesday, Tue. Due to the fact that this patient will not have any dialysis catheter, we will do another extra short dialysis tomorrow and then remove the hemodialysis catheter. 2. Anemia. Continue weekly Epogen, p.r.n. blood transfusion. 3. Fever -- currently on IV antibiotics. Continue supportive care. 4. Systemic lupus erythematosus. The patient was instructed to follow up with his hand reamer on ce he gets discharged. Agree with current management.
[2018-07-14] MEDS ORDERED: Vancomycin HCl 500 MG in Sodium Chloride 0.9% 100 ML IVPB SCH (11:00)
[2018-07-14] MEDS ORDERED: Vancomycin Sliding Scale 1 EACH FS ONE (11:00)
[2018-07-14] MEDS ORDERED: Vancomycin HCl 1 GM in Premix Bag 1 BAG IVPB SCH (11:00)
[2018-07-14] MEDS ORDERED: HOLD VANCOMYCIN FOR LEVEL >20 FS SCH (11:00)
[2018-07-14] MEDS ORDERED: Vancomycin HCl 750 MG in Sodium Chloride 0.9% 250 ML 250 ML IVPB SCH (11:00)
[2018-07-14] MEDS ORDERED: Vancomycin HCl 250 MG in Sodium Chloride 0.9% 100 ML IVPB SCH (11:00)
[2018-07-14 11:58] LABS: Complement-C4 11.7 mg/dL (15-53)
[2018-07-14 12:23] LABS: Vancomycin, Random 10.4 ug/mL (See Comment)
[2018-07-14 12:25] LABS: HBSAg Index 0.22 S/CO (0-0.99); Hep B Surf Ag Non-Reactive S/CO (NonReactive)
[2018-07-14 14:13] LABS: PTT 32.8 SEC (22.9-36.1); Prothrombin Time 13.4 SEC (12.0-14.7)
[2018-07-15] MEDS: Piperacillin/Tazobactam 2.25 GM in Sodium Chloride 0.9% 100 ML IVPB SCH ×2 (05:40→13:58)
--- NOTE | 2018-07-15 06:11 | PDOC.FM ---
- Subjective Subjective: Mr Ewing is a 27yo male with pmh of SLE and ESRD presenting with sepsis of unknown source. Yesterday he had PD Catheter revised. This morning he has a little discomfort in his abdomen but denies pain. Denies SOB, Nausea, vomiting. Tolerating PO intake. No other concerns. - Objective MAR Reviewed: Yes Vital Signs & Weight: Vital Signs (12 hours) Temp Pulse Resp BP Pulse Ox 07/15/18 04:00 98.5 F 69 16 122/69 96 07/15/18 00:00 98.0 F 73 20 111/63 99 07/14/18 20:07 98.2 F 77 16 98/59 L 100 Weight Admit Weight 57.153 kg Weight 58.655 kg I&O: 07/13/18 07/14/18 07/15/18 06:59 06:59 06:59 Intake Total 1190 Balance 1190 Result Diagrams: 07/15/18 06:58 07/15/18 06:58 <Savi Frost - Last Filed: 07/15/18 10:22> - Objective Vital Signs & Weight: Vital Signs (12 hours) Temp Pulse Resp BP Pulse Ox 07/15/18 08:14 97.8 F 67 16 110/69 95 07/15/18 04:00 98.5 F 69 16 122/69 96 07/15/18 00:00 98.0 F 73 20 111/63 99 Weight Admit Weight 57.153 kg Weight 60.044 kg I&O: 07/14/18 07/15/18 07/16/18 06:59 06:59 06:59 Intake Total 1190 800 Balance 1190 800 Result Diagrams: 07/15/18 06:58 07/15/18 06:58 <Jorge Cruz R - Last Filed: 07/15/18 10:36> Phys Exam - Physical Examination Constitutional: NAD Neck: supple Respiratory: no wheezing, clear to auscultation bilateral Cardiovascular: RRR, no significant murmur Gastrointestinal: soft, positive bowel sounds appropriately tender Musculoskeletal: no edema, pulses present muscle atrophy in bilateral legs Psychiatric: normal affect, A&O x 3 Skin: cap refill <2 seconds Deviation from normal: Tunnel catheter on right upper chest. PD catheter insertion site on left -: abdomen covered with dressing- no drainage <Savi Frost - Last Filed: 07/15/18 10:22> Dx/Plan (1) Sepsis Code(s): A41.9 - SEPSIS, UNSPECIFIED ORGANISM Status: Acute (2) Anemia of renal disease Code(s): D63.1 - ANEMIA IN CHRONIC KIDNEY DISEASE Status: Chronic (3) End-stage renal disease needing dialysis Code(s): N18.6 - END STAGE RENAL DISEASE; Z99.2 - DEPENDENCE ON RENAL DIALYSIS Status: Chronic (4) Pancytopenia Code(s): D61.818 - OTHER PANCYTOPENIA Status: Chronic (5) Secondary hyperparathyroidism of renal origin Code(s): N25.81 - SECONDARY HYPERPARATHYROIDISM OF RENAL ORIGIN Status: Chronic (6) Systemic lupus Code(s): M32.9 - SYSTEMIC LUPUS ERYTHEMATOSUS, UNSPECIFIED Status: Chronic Qualifiers: Systemic lupus erythematosus organ involvement: glomerular disease - Plan Plan: Sepsis without source - Peripheral BCx, Blood from tunneled cath, and peritoneal fluid aspirates obtained. - Influenza neg - Tylenol for fever/pain - D/c Vanc and Zosyn, discharge on Augmentin 500 BID, plan to continue until tunnel catheter replacement on 07/19 - possibly secondary to lupus flare, although pt denies joint pain or other symptoms consistent with typical lupus flares for him. - Complement levels low, indicates pt is having lupus flare - Plan to remove tunnel dialysis catheter today after dialysis. Will not be able to start peritoneal dialysis for ~2 wks due to revision of PD catheter. ESRD on HD MWF - Nephro consulted-Dr. Causey. Follow recs. - Dialysis today, removed tunnel catheter afterwards with plan to replace 07/19 - Consulted General Surgery- Keshav revised peritoneal dialysis catheter. Pt denied fistula at this time. - renal dose medication. SLE - not on any medications. - If cx come back negative, likely SLE flare. - Complement levels low, indicates pt is having lupus flare Anemia of chronic kidney disease. - Hgb trended from 9.2-7.3 today. No sign of bleeding from patient. No concern of acute bleed from nursing. Hgb has been stable the past few days - Likely dilutional. On EPO - Continue to trend D/c: plan to discharge today after dialysis <Savi Frost - Last Filed: 07/15/18 10:22> Attending Addendum - Attending Addendum Date/Time: 07/15/18 1035 I personally evaluated the patient and discussed the management with Dr. Frost. I agree with the History, Examination, Assessment and Plan documented above with any addition or exceptions noted below. Patient doing well. Denies complaints. His cultures are negative, WBC normal, and afebrile during his stay. He is undergoing HD today, and the catheter will be removed. Nephro and GenSurg plan for replacement of catheter on Tuesday, but report he is stable for discharge after HD today. Will be sent home on Augmentin per Nephro. <Jorge Cruz R - Last Filed: 07/15/18 10:36>
[2018-07-15 07:19] LABS: #Lymphocytes 0.4 thou/uL (1.20-3.40); #Monocytes 0.2 thou/uL (0.11-0.59); #Neutrophils 3.3 thou/uL (1.40-6.50); %Basophils 0.2 % (0.0-1.0); %Eosinophils 0.1 % (0.0-10.0); %Lymphocytes 10.3 % (21.0-51.0); %Monocytes 4.5 % (0.0-10.0); %Neutrophils 84.9 % (42.0-75.0); Hemoglobin 7.3 g/dL (14.0-18.0); Mean Corpuscular HGB CONC 32.5 g/dL (32.0-36.0); Mean Corpuscular Hemoglobin 30.7 pg (27.0-31.0); Mean Corpuscular Volume 94.5 fL (78.0-98.0); Platelet Count 262 thou/uL (130-400); RBC Distribution Width 12.2 % (11.5-14.5); Red Blood Cell (RBC) Count 2.38 mill/uL (4.70-6.10); White Blood Cell (WBC) Count 3.9 thou/uL (4.8-10.8)
[2018-07-15 07:39] LABS: Anion Gap 13 mmol/L (10-20); BUN (Urea Nitrogen) 39 mg/dL (8.9-20.6); Calc. Creatinine Clearance 14 mL/min (70-130); Carbon Dioxide 25 mmol/L (22-29); Chloride 104 mmol/L (98-107); Estimated GFR-MDRD 10; Glucose 100 mg/dL (70-105); Sodium 138 mmol/L (136-145)
--- NOTE | 2018-07-15 11:23 | PRG ---
DATE OF SERVICE: 07/15/2018 RENAL MEDICINE SUBJECTIVE: Mr. Ewing is a 27-year-old male with a known history of ESRD. He was admitted d ue to the nonfunctional PD catheter. Dr. Parr has done exploratory laparotomy and repositioned the PD catheter. In the interim, due to the fever, his dialysis catheter will be pulled out after dialy sis today. I am at the bedside supervising his dialysis. I am doing a 2-hour hemodialysis with this patient. He voices no new complaints. PHYSICAL EXAMINATION: VITAL SIGNS: Blood pressure is 122/69, heart rate 69, respiratory rate 16, temperature 98.5, pulse o x 96%. GENERAL: Noted to be awake, alert, comfortable, not in distress. SKIN: Adequate turgor. HEENT: Slightly pale conjunctivae, anicteric sclerae. NECK: No neck mass, no carotid bruits, no JVD. CHEST: No deformities. LUNGS: Clear breath sounds. No wheezing, no crackles. HEART: Normal sinus rhythm. No murmur, no gallops, no rubs. ABDOMEN: Globular, soft, nontender. No masses. EXTREMITIES: No edema, no deformities. MEDICATIONS: Medications of 07/15/2018 was reviewed. LABORATORY DATA: Laboratories of 07/15/2018, white count 3.9, hemoglobin 7.3, sodium 138, potassium 4, chloride 104, carbon dioxide 25, BUN 39, creatinine 6.87, glucose 100, calcium 8.0. ASSESSMENT AND PLAN: 1. End-stage renal disease -- undergoing 2-hour hemodialysis today. As per recommendation by Annabella sanabria, the hemodialysis catheter will be pulled out. He will get in touch with surgery this coming to have a new dialysis catheter placed. 2. Anemia, continuing weekly Epogen. We will give 1 unit of packed red blood cells today. 3. Dysfunctional PD catheter -- operative intervention has been done by Dr. Parr. He has recommen ded to hold off using this PD catheter for the next 1-1/2 to 2 weeks. 4. Systemic lupus erythematosus -- the patient again reinstructed to follow up with his rheumatologi st for further management of his lupus. ADDENDUM: We will give 1 unit of packed RBC with dialysis.
[2018-07-15] MEDS: Ferrous Sulfate 325 MG TAB PO SCH (12:18)
[2018-07-15] MEDS: Dicyclomine 10 MG CAP PO SCH (12:18)
[2018-07-15] MEDS: Calcitriol 0.25 MCG CAP PO SCH (12:18)
[2018-07-15] MEDS: Heparin 5,000 UNITS/ML VIAL SC SCH ×2 (12:18→14:08)
[2018-07-15 18:25] VITALS: TEMP 98.1
[2018-07-15 18:28] VITALS: BP 112/73
--- NOTE | 2018-07-17 12:44 | DIS-2 ---
DATE OF ADMISSION: 07/13/2018 DATE OF DISCHARGE: 07/15/2018 DISCHARGE ATTENDING: Dr. Jorge Cruz RESIDENT: Dr. Mitch Alvarez, PGY-2 CONSULTATIONS: Include Nephrology, Dr. Javier Causey; Critical Care Pulmonology, Dr. Tesfaye cool nd General Surgery, Dr. Nils Parr. IMAGING: He had a chest x-ray on 07/12/2018 which showed diffuse interstitial markings, may represen t pulmonary edema. He had an abdomen ultrasound which showed minimal fluid as above on 07/13/2018. On 07/14/2018 and he had an echo done which showed an EF of 60-65%, normal sized left atrium, left ve ntricular size normal. Mild tricuspid regurgitation, and a small to moderate circumferential pericar dial effusion. PROCEDURES: On 07/14/2018, he had removal of his hemodialysis catheter, the cuff was freed, cathet er left in place for hemodialysis and will be removed after hemodialysis. He also had a laparoscopic revision of his peritoneal dialysis catheter with a #2 Ethibond sling sutures securing it to the pel vis. PRIMARY: DIAGNOSES: 1. Sepsis without a source. 2. Systemic lupus erythematosus flare. 3. End-stage renal disease, on hemodialysis Tuesday, Tuesday, Tuesday. 4. Anemia of chronic kidney disease. DISCHARGE MEDICATIONS: 1. Augmentin 500 mg p.o. b.i.d. for 5 days. 2. Calcitriol 0.25 mcg daily. 3. Tums 500 mg p.o. t.i.d. 4. Bentyl 10 mg p.o. daily. 5. Docusate 100 mg p.o. b.i.d. 6. Epoetin 7500 units every week. 7. Ferrous sulfate 325 mg daily. 8. Tramadol 50 mg p.o. q.6h. p.r.n. as needed for pain. DISCONTINUED MEDICATIONS: Include discontinuing vancomycin and Zosyn. HISTORY OF PRESENT ILLNESS/BRIEF HOSPITAL COURSE: This is a 27-year-old male with a past medical his tory of lupus and end-stage renal disease on dialysis Tuesday, Tuesday, and Tuesday, who came in with a 2 day history of worsening generalized fatigue and weakness. When he went to dialysis the other d ay he was found to be hypotensive, when he came to the ER, he had a fever of 102.4 and was tachycardi c to the 130s. He had white blood cells that were low to 4.5. He denied any joint pain or anything at this time. At this time he was admitted for sepsis of unknown source. Blood cultures were drawn. Cultures from his hemodialysis catheter were drawn as well. Flu was taken. Throughout his stay, b lood cultures would show no growth at 48 hours. Flu was negative. His white blood cell count was tr ended from 4.2 to 3.9 on day of discharge. When he got here, we started him on lactated Ringer's due to being a little bit hypotensive. His blood pressure was 94/56 and 82/51. We gave him lactated Ri nger's over the course of a day and blood pressure would improve. The patient's tachycardia would co ntinue to improve. It still would be a little elevated on the , but would improve. The patient never did have another fever. He did have elevated temps, the highest of 100.1, but nothing of a mary e fever to 100.4. At this time, chest x-ray showed the above findings, concern for possible infectio n, so we started him on vancomycin and Zosyn. For coverage he would get vancomycin through dialysis catheter and at this time Dr. Causey was consulted for hemodialysis management of the patient. At this time Dr. Causey mentioned wanting to maybe get the patient's peritoneal dialysis catheter was no longer working, wanted to consult Dr. Parr for maybe a revision of the peritoneal dialysis catheter. Dr. Parr would do the operative procedure as noted above on 07/14/2018. Dr. Parr had a suspicion macarena t possibly his hemodialysis catheter was source of infection even though blood cultures came back neg ative. Dr. Fallon was consulted just due to being in the IMCU. We [facility] due to the fluid noted in his lungs which came to be benign. At this time as we got a procalcit onin that was 1.49. Labs did not show any signs of infection. So at this time we checked complement levels to see if he was in acute lupus flare. Came to find that his complement levels were low, cor relating with a lupus flare. His hemoglobin would drop from 9.2 to 7.2 to 7.3, likely stable. He abad s the anemia of chronic disease 50 Epoetin. He did receive 1 packed unit of red blood cells in dialy sis per Dr. Causey. At this time, the patient was stable. Hypotension and signs of sepsis had resolved on 07/15/2018. He had revision of peritoneal dialysis catheter, but would not be able to use it at least for another 2 weeks. They did do an extra dose of dialysis on Tuesday and remove his hemodial ysis catheter, plan to replace one this upcoming Tuesday with Dr. Parr with the plan of eventuall y being able to use the peritoneal dialysis catheter. With level correlated symptoms of weakness and fatigue to likely lupus flare and recommended outpatient followup with his hand cutter. We did g nereyda him a 5-day course of Augmentin just to cover for any possible source of infection and cover for the source of possible hemodialysis catheter infection. DISPOSITION: Stable. DISCHARGE LOCATION: Home. ACTIVITY: Activity as tolerated. DIET: Renal diet. FOLLOWUP: He will need to follow up with Dr. Causey and Dr. Parr as scheduled. He will need to follo w up with his hand cutter as soon as possible. He will need to follow up with his PCP within 14 d ays of discharge.
== END 2018-07-15 19:15 | disposition home or self-care (01) | DRG 871 ==
LOC: ERS 22:41 → IMCU/EMU 07-13 00:45 → 2NO 07-14 18:27
PROVIDERS: ADMIT Student in an Organized Health Care Education/Training Program; ATTEND Student in an Organized Health Care Education/Training Program
PROC: 0JWT33Z Revision of Infusion Device in Trunk Subcutaneous Tissue and Fascia, Percutaneous Approach (ICD-10-PCS; principal; 2018-07-14)
PROC: 3E1M39Z Irrigation of Peritoneal Cavity using Dialysate, Percutaneous Approach (ICD-10-PCS; 2018-07-14)
DX: A41.9 Sepsis, unspecified organism (principal); N18.6 End stage renal disease; T80.219A Unspecified infection due to central venous catheter, initial encounter; D61.818 Other pancytopenia; M32.9 Systemic lupus erythematosus, unspecified; Z99.2 Dependence on renal dialysis; N05.9 Unspecified nephritic syndrome with unspecified morphologic changes; Y84.1 Kidney dialysis as the cause of abnormal reaction of the patient, or of later complication, without mention of misadventure at the time of the procedure; I50.9 Heart failure, unspecified
CPT/HCPCS: 36415; 36430; 71045; 76705; 80048; 80053; 80202; 83605; 84145; 85025; 85610; 85730; 86160; 86850; 86870; 86900; 86901; 86905; 86922; 87040; 87340; 87389; 87804; 90935; 93005; 93306; 96365; 96367; 99282; A4216; G0257; J0670; J1644; J2543; J3010; J3370; J7050; P9016; Q4081

== ENCOUNTER 2018-07-19 07:15 | Observation (INO) | payer OTHER ==
[2018-07-19 08:13] LABS: Anion Gap 21 mmol/L (10-20); BUN (Urea Nitrogen) 75 mg/dL (8.9-20.6); Calc. Creatinine Clearance 0 mL/min (70-130); Calcium 8.1 mg/dL (7.8-10.44); Carbon Dioxide 14 mmol/L (22-29); Chloride 104 mmol/L (98-107); Estimated GFR-MDRD 5; Glucose 90 mg/dL (70-105); Potassium 5.5 mmol/L (3.5-5.1); Sodium 133 mmol/L (136-145)
[2018-07-19] MEDS ORDERED: CEFAZOLIN/Water 2 GM/20 ML SYRINGE ONE (09:40)
[2018-07-19] MEDS ORDERED: Lidocaine 1% PF 5 ML VIAL ONE (10:06)
[2018-07-19] MEDS ORDERED: Ondansetron HCl/PF 4 MG/2 ML Vial ONE (10:06)
[2018-07-19] MEDS ORDERED: PROPOFOL 200 MG/20 ML VIAL ONE (10:06)
[2018-07-19] MEDS ORDERED: Fentanyl 100 MCG/2 ML VIAL ONE (10:52)
[2018-07-19] MEDS ORDERED: PROPOFOL 20 ML ONE (10:52)
[2018-07-19] MEDS ORDERED: Lidocaine 2% PF Inj 2 ML VIAL ONE (10:56)
[2018-07-19] MEDS ORDERED: Heparin 10,000 UNITS/1 ML VIAL ONE (10:56)
[2018-07-19] MEDS ORDERED: Bupivacaine HCl 0.5%/Epinephrine 1:200,000/PF 30 ml Vial ONE (10:56)
[2018-07-19] MEDS ORDERED: Sodium Chloride 0.9% 20 ML ONE (10:56)
--- NOTE | 2018-07-19 15:08 | RAD ---
CHEST 1 VIEW: Date: 07/19/18 HISTORY: Hemodialysis catheter placement. COMPARISON: None. FINDINGS: Dialysis catheter is in place, tip in right atrium. There is layering right pleural effusion. Mild co nsolidated changes right lung base. IMPRESSION: 1. Moderate right pleural effusion and mild edema. 2. No pneumothorax. POS: [facility]
--- NOTE | 2018-07-19 15:25 | OP ---
DATE OF PROCEDURE: 07/19/2018 PREOPERATIVE DIAGNOSES: End-stage renal disease, dysfunctional peritoneal dialysis catheter, status post revision 5 days ago, history of bacteremia and hemodialysis catheter removal, poor compliance, r efuses a fistula access, possibly could have a basilic vein fistula in right arm. POSTOPERATIVE DIAGNOSES: End-stage renal disease, dysfunctional peritoneal dialysis catheter, status post revision 5 days ago, history of bacteremia and hemodialysis catheter removal, poor compliance, refuses a fistula access, possibly could have a basilic vein fistula in right arm, occlusion of right internal jugular vein (could not thread J wire, although could cannulate it). PROCEDURE PERFORMED: Placement of left IJ cuffed tunneled hemodialysis catheter, ultrasound fluorosc opy used. SURGEON: Nils Parr M.D. ANESTHESIA: TIVA. Local 0.5% Marcaine with epinephrine, 30 mL, mixed with 2% Xylocaine, 4 mL. PROCEDURE IN DETAIL: Patient was taken to the operating room where under intravenous sedation, neck and chest prepped with ChloraPrep, draped in routine fashion. Local anesthetic infiltrated into the skin and subcutaneous tissue about the operative site. Ultrasound guidance used to cannulate the rig ht internal jugular vein. J-wire did not thread. Left internal jugular vein was cannulated and J wi re threaded, trocar catheter removed. Skin incised and enlarged sharply. Stab incision was made to left chest. Using the tunneling device, precurved angiodynamics, cuffed tunneled hemodialysis cathet er was tunneled between two incisions, placing the fiber cuff beneath the skin exit site and catheter secured with 2 interrupted sutures of 3-0 nylon and Biopatch sterile dressing applied. Smaller medi um sized dilator was placed over the J-wire into the internal jugular vein, removed. Dilator and pul l-away sheath placed under fluoroscopic visualization in the superior vena cava and dilator and J-wir e removed. Catheter placed with pull-away sheath. Pull-away sheath removed. Platysma approximated with 4-0 Monocryl, skin with subdermal Monocryl and DermaGlue applied. The patient tolerated the pro cedure well. Each port was aspirated of blood and flushed with saline solution and heparinized salin e solution 1000 units heparin per mL indicated volume in the port. The patient tolerated the procedu re well without complications. Final fluoroscopic images revealed good line placement.
--- NOTE | 2018-07-22 17:59 | EKG ---
Test Reason : Blood Pressure : / mmHG Vent. Rate : 092 BPM Atrial Rate : 092 BPM P-R Int : 112 ms QRS Dur : 082 ms QT Int : 362 ms P-R-T Axes : 020 072 043 degrees QTc Int : 447 ms Normal sinus rhythm Normal ECG Confirmed by MANASA DUARTE, TOR ([id number]), editor magazine SOUMYA BEAN ([id number]) on 07/22/2018 5:59:30 PM Referred By: Confirmed By:TOR GOEL MD
== END 2018-07-19 14:50 | disposition home or self-care (01) ==
LOC: ERS 07:15 → ERHOLD 08:41 → SURG A 08:51
PROVIDERS: ADMIT Specialist; ATTEND Specialist
PROC: 0WHG03Z Insertion of Infusion Device into Peritoneal Cavity, Open Approach (ICD-10-PCS; principal; 2018-07-19)
DX: N18.6 End stage renal disease (principal); M32.14 Glomerular disease in systemic lupus erythematosus; Z88.8 Allergy status to other drugs, medicaments and biological substances
CPT/HCPCS: 71045; 80048; 93005; A4216; C1769; J0670; J1644; J2001; J2405; J2704; J3010

== ENCOUNTER 2018-08-13 21:40 | Inpatient (IN) | payer OTHER ==
[~2018-08-13 21:40] MED LIST: ISOVUE-370 76%-LOCM 1 ML ONE
[2018-08-13 22:18] LABS: Hemoglobin 6.4 g/dL (14.0-18.0); Mean Corpuscular HGB CONC 31.9 g/dL (32.0-36.0); Mean Corpuscular Hemoglobin 28.8 pg (27.0-31.0); Mean Corpuscular Volume 90.1 fL (78.0-98.0); Mean Platelet Volume 7.5 fL (7.4-10.4); Platelet Count 277 thou/uL (130-400); RBC Distribution Width 13.8 % (11.5-14.5); Red Blood Cell (RBC) Count 2.24 mill/uL (4.70-6.10); White Blood Cell (WBC) Count 6.1 thou/uL (4.8-10.8)
[2018-08-13 22:31] LABS: #Lymphocytes 0.4 thou/uL (1.20-3.40); #Monocytes 0.2 thou/uL (0.11-0.59); #Neutrophils 5.4 thou/uL (1.40-6.50); %Basophils 0.1 % (0.0-1.0); %Eosinophils 0.7 % (0.0-10.0); %Lymphocytes 6.6 % (21.0-51.0); %Monocytes 3.7 % (0.0-10.0); %Neutrophils 88.9 % (42.0-75.0); Elliptocytes SLIGHT = 2-5 cells (100X) (0-1/hpf); MDiff Complete? YES; PLT Morphology Comment Appears Adequate
[2018-08-13 22:39] LABS: ALT (SGPT) Less than 7 U/L (8-55); AST (SGOT) 15 U/L (5-34); Albumin 2.5 g/dL (3.5-5.0); Alkaline Phosphatase 43 U/L (40-150); Anion Gap 17 mmol/L (10-20); BUN (Urea Nitrogen) 41 mg/dL (8.9-20.6); Bilirubin, Total 0.2 mg/dL (0.2-1.2); Calc. Creatinine Clearance 0 mL/min (70-130); Calcium 8.2 mg/dL (7.8-10.44); Carbon Dioxide 25 mmol/L (22-29); Chloride 96 mmol/L (98-107); Estimated GFR-MDRD 7; Globulin 3.3 g/dL (2.4-3.5); Glucose 93 mg/dL (70-105); Lipase 12 U/L (8-78); Potassium 3.5 mmol/L (3.5-5.1); Protein, Total 5.8 g/dL (6.0-8.3); Sodium 134 mmol/L (136-145)
[2018-08-13] MEDS ORDERED: Ondansetron HCl/PF 4 MG/2 ML Vial ONE (22:48)
[2018-08-14] MEDS ORDERED: Ondansetron HCl/PF 4 MG/2 ML Vial ONE (01:08)
[2018-08-14] MEDS ORDERED: Morphine 4 MG/ML VIAL ONE (01:08)
[2018-08-14] MEDS ORDERED: metroNIDAZOLE 500 MG in Premix Bag 1 BAG IVPB SCH (01:30)
[2018-08-14] MEDS ORDERED: Ondansetron HCl/PF 4 MG/2 ML Vial IVP PRN ×2 (03:10→07:10)
[2018-08-14] MEDS ORDERED: Acetaminophen 325 MG TAB PO PRN ×2 (03:10→07:10)
[2018-08-14] MEDS ORDERED: Ondansetron ODT 4 MG TAB SL PRN (03:10)
[2018-08-14] MEDS ORDERED: Sodium Chloride 0.9% 1,000 ML IV SCH (03:15)
[2018-08-14 03:20] LABS: Lavender RECEIVED; Red RECEIVED
[2018-08-14] MEDS ORDERED: Chloraseptic Spray 180 ml Bottle PO PRN (07:10)
[2018-08-14] MEDS ORDERED: Loratadine 10 MG TAB PO PRN (07:10)
[2018-08-14] MEDS ORDERED: Ondansetron ODT 4 MG TAB PO PRN (07:10)
[2018-08-14] MEDS ORDERED: Diabetic Tussin 200 MG/10 ML UDCUP PO PRN (07:10)
[2018-08-14] MEDS ORDERED: hydrALAZINE 20 MG/ML VIAL SLOW IVP PRN (07:10)
[2018-08-14] MEDS ORDERED: Eucerin (Mineral Oil/Petrolatum,White) 30 gm Jar TOP PRN (07:10)
[2018-08-14] MEDS ORDERED: Zolpidem Tartrate 5 MG TAB PO PRN (07:10)
[2018-08-14] MEDS ORDERED: Artificial Tears 18 DROP/0.9 ML EA EYE PRN (07:10)
[2018-08-14] MEDS ORDERED: Sodium Chloride 0.65% Nasal 44 ML BOT EA NARE PRN (07:10)
[2018-08-14] MEDS ORDERED: Epoetin (ESRD) 10,000 UNITS/ML VIAL SC SCH ×2 (08:00→09:00)
--- NOTE | 2018-08-14 08:03 | CT ---
PRELIMINARY REPORT/[facility]/EMERGENTY AFTER-HOURS PROCEDURE CT Abdomen and Pelvis With Intravenous Contrast EXAM DATE/TIME: 08/13/2018 11:53 PM CLINICAL HISTORY: 28 years old, male; Pain; Abdominal pain; Generalized; Patient HX: Patient presents for evaluation of nausea, patient presents for evaluation of vomiting, of bililious fluid, patient presents for evalua tion of diarrhea, described as loose stools. TECHNIQUE: Axial computed tomography images of the abdomen and pelvis with intravenous contrast. Coronal reformatted images were created and reviewed. COMPARISON: No relevant prior studies available. FINDINGS: Tubes, catheters and devices: The peritoneal dialysis catheter is present. Lower thorax: There is small right pleural effusion and associated dependent atelectasis. There is a calcified granuloma in the left lower lobe base. ABDOMEN: Liver: Normal. No mass. Gallbladder and bile ducts: Normal. No calcified stones. No ductal dilation. Pancreas: Normal. No ductal dilation. Spleen: There is significant splenomegaly. Adrenals: Normal. No mass. Kidneys and ureters: There is atrophy of the kidneys. Stomach and bowel: There is abnormal wall thickening of duodenum, multiple small bowel loops and colo shiv loops suspicious for duodenitis, enteritis and colitis. Appendix: No evidence of appendicitis. PELVIS: Bladder: Unremarkable as visualized. Reproductive: Unremarkable as visualized. ABDOMEN and PELVIS: Intraperitoneal space: There is significant ascites in the abdomen and pelvis which may be partly loc ulated with some mild peritoneal wall enhancement. Bones/joints: No acute fracture. No dislocation. Soft tissues: Unremarkable. Vasculature: Normal. No abdominal aortic aneurysm. Lymph nodes: Normal. No enlarged lymph nodes. IMPRESSION: 1. There is small right pleural effusion and associated dependent atelectasis. 2. There is significant ascites in the abdomen and pelvis which may be partly loculated with some mil d peritoneal wall enhancement. 3. There is abnormal wall thickening of duodenum, multiple small bowel loops and colonic loops suspic ious for duodenitis, enteritis and colitis. Thank you for allowing us to participate in the care of your patient. Dictated and Authenticated by: Vinicio Melchor MD 08/14/2018 12:45 AM Central Time ([place] & [place]) FINAL REPORT CT ABDOMEN AND PELVIS WITH CONTRAST: HISTORY: Abdominal pain. Vomiting. Fever. COMPARISON: CT abdomen and pelvis without contrast 07/19/2015. FINDINGS/IMPRESSION: 1. The findings and impression are concurrent with the preliminary report. In addition, there is li gallo an incomplete volvulus of the proximal small bowel which is giving the dilatation of the 1st and 2nd portions of the duodenum. There is rotation of the superior mesenteric vein around the superior mesenteric artery. A followup upper GI examination would be helpful. 2. Moderate splenomegaly. 3. Extensive submucosal edema of the ascending colon may be sequelae of volume overload and inflamma tion from possible peritonitis versus colitis. POS: [facility]
[2018-08-14] MEDS ORDERED: Heparin 5,000 UNITS/ML VIAL SC SCH (09:00)
[2018-08-14] MEDS ORDERED: Prevnar 13-Val Conj/PF 0.5 ML SYRINGE IM ONE (09:00)
[2018-08-14] MEDS: Ciprofloxacin Lactate/D5W 200 MG in Premix Bag 1 BAG IVPB SCH ×2 (09:09→20:31)
[2018-08-14] MEDS: Calcium Carbonate 500 MG ChewTAB PO SCH ×3 (09:10→17:04)
[2018-08-14] MEDS: Saccharomyces boulardii 250 MG CAP PO SCH (09:10)
[2018-08-14] MEDS: Famotidine/PF 20 mg/2ml Vial SLOW IVP SCH (09:10)
[2018-08-14] MEDS: Hydroxychloroquine Sulfate 200 MG TAB PO SCH (09:10)
--- NOTE | 2018-08-14 09:20 | CON ---
DATE OF CONSULTATION: 08/14/2018 HISTORY OF PRESENT ILLNESS: Mr. 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 We are being consulted for his maintenance hemodialysis. He was also noted to have symptomatic anemi a and for that reason, currently receiving a blood transfusion. CT scan of the abdomen and pelvis wa s done and the findings showed marked splenomegaly, small pleural effusion, and abnormal wall thicken ing of the duodenum with multiple small bowel loops and colonic loops suspicious for duodenitis/colit is. There was also significant ascites in the abdomen and pelvis, which may be partly loculated with some mild peritoneal wall enhancement. I have started this patient on Epogen due to his symptomatic anemia and he is receiving a blood trans fusion. REVIEW OF SYSTEMS: Positive for nausea. Positive for diarrhea. Positive for abdominal pain. Denie s any fever. Positive for abdominal pain. No hematochezia, no melena, no hematemesis, no dysuria, n o urinary frequency, no chest pain or shortness of breath, no headache, no diplopia, decreased appeti te, decreased energy level. Occasional joint pains. No sore throat. MEDICATIONS: [place] 5/325 q.4-6 hours p.r.n., calcitriol 0.25 mcg every day, Tums 200 mg tab t.i.d., Cipro 200 mg IV q.12 hours, Pepcid 20 mg IV daily, ferrous sulfate 325 mg once a day, heparin 5000 un its subcu b.i.d., Plaquenil 200 mg daily, metronidazole 250 mg IV q.8, Renvela 800 mg 1 tab t.i.d. wi th meals. PAST MEDICAL HISTORY: 1. 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 2. Systemic lupus erythematosus. 3. Hyperphosphatemia secondary hyperparathyroidism. PAST SURGICAL HISTORY: 1. Status post PD catheter placement. 2. Status post PD catheter removal, status post cuffed hemodialysis catheter placement. 3. Status post kidney biopsy. 4. Status post thoracentesis for pleural effusion secondary to his lupus. 5. Status post laparoscopic appendectomy for perforated appendix. SOCIAL HISTORY: The patient is single, lives in [place], lives with his mother. Education; high school. Currently, not working. No history of smoking, no IV drug abuse. Status post multiple bloo d transfusions. He has 5 siblings. ALLERGIES: None. TRAUMA: None. IMMUNIZATIONS: Up to date. HOSPITALIZATIONS: Please see past medical history. FAMILY HISTORY: Positive family history of ESRD. Father was on dialysis. PHYSICAL EXAMINATION: VITAL SIGNS: Blood pressure 131/84, heart rate is 61, respiratory rate 16, temperature 97.9, pulse o x 98%. GENERAL: Noted to be awake, alert, comfortable, not in distress. SKIN: Adequate turgor. HEENT: Pale conjunctivae, anicteric sclerae. NECK: No neck mass, no carotid bruits, no JVD. CHEST: No deformities. LUNGS: Decreased breath sounds, no wheezing, no crackles. HEART: Normal sinus rhythm. No murmur, no gallops or rubs. ABDOMEN: Globular, soft, nontender, no masses. Positive for PD catheter. EXTREMITIES: No edema, no deformities. NEUROLOGIC: Awake, oriented to 3 spheres. Moving all extremities. No tremors. No asterixis. No a taxia. LABORATORY: 08/13/2018 - Sodium 134, potassium 3.5, chloride 96, carbon dioxide 25, BUN 41, creatini ne 9.07, calcium 8.2, AST 15, ALT less than 7. White count 6.1, hemoglobin 6.4. ASSESSMENT AND PLAN: 1. End-stage renal disease - we will continue current maintenance hemodialysis on Tuesday, Tuesday, and Tuesday. He is on a backup hemodialysis due to a poorly functioning PD catheter. The plan is to rechallenge him with peritoneal dialysis once he is back to the outpatient clinic. 2. Abdominal pain - presumptive colitis. We will also rule out peritonitis with this patient. PD breezy helm will be examined and sent for cell count, culture and Gram stain. Currently, the patient is on empiric IV antibiotics. 3. Anemia. Start Epogen 10,000 units subcutaneously every week. P.r.n. blood transfusion. Please note I have scheduled him for Tuesday, Tuesday, Tuesday hemodialysis. Recheck base met and CBC in a.m.
[2018-08-14 11:11] LABS: #Eosinphils 0.1 thou/uL (0.0-0.7); #Lymphocytes 0.4 thou/uL (1.20-3.40); #Monocytes 0.3 thou/uL (0.11-0.59); #Neutrophils 5.6 thou/uL (1.40-6.50); %Basophils 0.2 % (0.0-1.0); %Eosinophils 1.7 % (0.0-10.0); %Lymphocytes 6.6 % (21.0-51.0); %Monocytes 4.3 % (0.0-10.0); %Neutrophils 87.2 % (42.0-75.0); Mean Corpuscular HGB CONC 32.2 g/dL (32.0-36.0); Mean Corpuscular Hemoglobin 28.9 pg (27.0-31.0); Mean Corpuscular Volume 89.7 fL (78.0-98.0); Mean Platelet Volume 7.8 fL (7.4-10.4); Platelet Count 235 thou/uL (130-400); RBC Distribution Width 13.5 % (11.5-14.5); White Blood Cell (WBC) Count 6.4 thou/uL (4.8-10.8)
[2018-08-14 11:31] LABS: Albumin 2.1 g/dL (3.5-5.0); Anion Gap 15 mmol/L (10-20); BUN (Urea Nitrogen) 49 mg/dL (8.9-20.6); BUN/Creatinine Ratio 5.22; Calc. Creatinine Clearance 10 mL/min (70-130); Calcium 8.1 mg/dL (7.8-10.44); Carbon Dioxide 22 mmol/L (22-29); Chloride 99 mmol/L (98-107); Estimated GFR-MDRD 7; Glucose 84 mg/dL (70-105); Phosphorus 7.5 mg/dL (2.3-4.7); Sodium 132 mmol/L (136-145)
[2018-08-14 12:00] LABS: Hep B Surf Ag Non-Reactive S/CO (NonReactive)
[2018-08-14 12:01] LABS: HBSAg Index 0.22 S/CO (0-0.99)
--- NOTE | 2018-08-14 12:06 | HP ---
PRIMARY CARE PHYSICIAN: [facility] call admission. REASON FOR ADMISSION: Symptomatic anemia and gastroenteritis. HISTORY OF PRESENT ILLNESS: A 28-year-old male, who has underlying history of lupus and lup us associated nephritis with ESRD. Initially, patient was on peritoneal dialysis for several months, but subsequently during recent admission he was changed to hemodialysis. Patient at this time prese nted with complaint of nausea, vomiting, diarrhea. He was having bilious vomiting at home. He was h aving several times loose liquidy bowel movement. Patient reports that he was also given antibiotic therapy recently by Dr. Causey for some infection. He denies any fever or chills. He denies any dizzin ess. He does report lower crampy abdominal pain. In the emergency room, this patient was found with hemoglobin 6.4. He was given 2 units of blood tra nsfusion and after that his hemoglobin was 9.0. He had CT of the abdomen and pelvis which showed fin dings suggestive of duodenitis, enteritis and colitis. Patient was admitted to telemetry floor. REVIEW OF SYSTEMS: The following complete review of systems was negative, unless otherwise mentioned in the HPI or below: Constitutional: Weight loss or gain, ability to conduct usual activities. Skin: Rash, itching. Eyes: Double vision, pain. ENT/Mouth: Nose bleeding, neck stiffness, pain, tenderness. Cardiovascular: Palpitations, dyspnea on exertion, orthopnea. Respiratory: Shortness of breath, wheezing, cough, hemoptysis, fever or night sweats. Gastrointestinal: Poor appetite, abdominal pain, heartburn, nausea, vomiting, constipation, or diarr hea. Genitourinary: Urgency, frequency, dysuria, nocturia. Musculoskeletal: Pain, swelling. Neurologic/Psychiatric: Anxiety, depression. Allergy/Immunologic: Skin rash, bleeding tendency. Please see my HPI for pertinent positive and negative. All other review of systems reviewed and nega tive except as mentioned in the HPI. PAST MEDICAL HISTORY: Systemic lupus erythematosus, lupus nephritis, end-stage renal disease on hemo dialysis, secondary hyperparathyroidism of renal origin and anemia of renal disease. PAST SURGICAL HISTORY: History of PD catheter placement, hemodialysis catheter placement, kidney bio psy, thoracentesis for pleural effusion, laparoscopic appendicectomy for perforated appendix. PAST PSYCHIATRIC HISTORY: Reviewed and negative. SOCIAL HISTORY: Patient is single, lives in [place]. Lives with his mother. He denies any smoki ng, alcohol or other illicit drug abuse. He has five siblings. ALLERGIES: PROMETHAZINE. FAMILY HISTORY: Positive for ESRD as well as lupus to maternal grandmother. Father was also on dial ysis. EMERGENCY ROOM COURSE: Patient was given Cipro 400 mg, Flagyl 500 mg, morphine 4 mg, Zofran 4 mg, Be ntyl 20 mg, IV fluid. CURRENT HOME MEDICATIONS: Ibuprofen 200 mg p.o. q.6 hours p.r.n., calcitriol 0.25 mcg p.o. daily, ca lcium carbonate 200 mg p.o. t.i.d., Bentyl 10 mg p.o. in evening, Colace 100 mg twice daily, ferrous sulfate 325 mg p.o. daily, Plaquenil 200 mg p.o. daily. PHYSICAL EXAMINATION: VITAL SIGNS: On arrival, blood pressure 115/75, pulse 107, respiratory rate 20, temperature 98.8, sa turation 100% on room air, weight 61 kilograms. GENERAL: Patient is currently alert, awake, no obvious acute distress. HEAD: Normocephalic, atraumatic. EYES: Pupils round, reactive to light. Conjunctivae pale. Moist mucous membranes, no oral lesion, no pharyngeal erythema, no exudate. Pallor mucous membranes noted. NECK: Supple, no JVD, no thyromegaly, no meningeal signs of irritation. LUNGS: Clear to auscultation. Air entry reduced at right base. CARDIAC: S1, S2 regular. No murmur, no gallop, no rub. ABDOMEN: Patient does have diffuse tenderness predominantly in lower abdomen. Peritoneal dialysis c atheter in place. No rebound, no rigidity. BACK: Examination unremarkable, no CVA tenderness. EXTREMITIES: Upper extremity passive movements of all joints are normal. Lower extremities: No larisa ma. Good distal pulsation. SKIN: No skin rash, pallor skin. HEMATOLOGICAL SYSTEM: No lymphadenopathy. PSYCHIATRIC: Normal affect. NEUROLOGIC: Nonfocal examination. IMAGING DATA AND SIGNIFICANT LABORATORY DATA: CT of the abdomen and pelvis done in the emergency joaquim m which showed small right pleural effusion with atelectasis, ascites which may be partly loculated. Abnormal wall thickening of the duodenum, small bowel and colon. Incomplete volvulus of proximal sm all bowel, moderate splenomegaly, extensive submucosal edema of the ascending colon. CBC: WBC 6.1, hemoglobin 6.4, platelet 277 with a left shift. BMP: Sodium 134, potassium 3.5, chloride 96, carbon dioxide 25, anion gap 17, BUN 41, creatinine 9.07, glucose 93, calcium 8.2, lactic acid 1.2. LFT: AST 15, ALT less than 7, alkaline phosphatase 43, albumin 2.5, lipase 12. ASSESSMENT AND PLAN/IMPRESSION: 1. Acute nausea, vomiting and abdominal pain. CT abdomen showing duodenitis, enteritis and colitis. There is incomplete volvulus of proximal small bowel which may be causing dilatation of first and s econd portion of the duodenum. The patient also has extensive mucosal edema of the ascending colon c onsistent with colitis. Another differential diagnosis is peritonitis as patient has PD catheter in place and patient is immunocompromised. Another possibility is infectious etiology. At this point, we will send stool for infection workup. Patient is started on renal dose of Cipro and Flagyl. His pain will be controlled with pain medication. Gastroenterology will be consulted. We will try to sa mple ascitic fluid through ultrasound to rule out any infection. 2. Symptomatic anemia. Patient required 2 units of blood transfusion. Currently, hemoglobin has im proved, most likely related with anemia of chronic disease as well as renal disease. The patient giovanni l benefit from Procrit injection. We will continue ferrous sulfate 325 mg p.o. daily. 3. End-stage renal disease, on hemodialysis. Dr. Causey will be consulted and patient will continue maintenance hemodialysis Tuesday, Tuesday, and Tuesday. 4. Secondary hyperparathyroidism of renal origin, continue Rocaltrol 0.25 mg p.o. daily and Tums as per home dosage. 5. Anemia of renal disease. Continue ferrous sulfate and Procrit as per Nephrology. 6. Deep venous thrombosis prophylaxis, heparin 5000 units subcu twice daily given patient is at high risk for deep venous thrombosis. 7. Gastrointestinal prophylaxis, Pepcid 20 mg IV daily. 8. Code status: The patient is FULL CODE. Patient's mother is surrogate decision maker. Disposition plan based on clinical course. We are expecting patient's stay in hospital more than 2 m idnights. Plan of care discussed with the patient in detail.
[2018-08-14] MEDS: METRONIDAZOLE IVPB SCH ×2 (17:04→22:20)
[2018-08-14] MEDS: ADMIXTURE FEE CHEMO IVPB SCH ×2 (17:04→22:20)
[2018-08-14 19:21] LABS: Fluid, Protein 2.1 g/dL (Not Available)
[2018-08-14 19:39] LABS: BF Color Yellow; Body Fluid Source PERITONEAL FLUID; Clarity Cloudy/Turbid (Clear); Tube # EDTA
[2018-08-14 19:40] LABS: BF RBC Count - Manual 355 /cumm; BF WBC/Nonhematics Ct. - Manua 270 /cumm
[2018-08-14 19:41] LABS: BF Segmented Neutrophils 84 %; Cell Count Non Hematic 7 %; Lymphocytes 9 %
[2018-08-14] MEDS: Dicyclomine 10 MG CAP PO SCH (20:35)
[2018-08-14] MEDS: Calcitriol 0.25 MCG CAP PO SCH (20:35)
[2018-08-14] MEDS: Ferrous Sulfate 325 MG TAB PO SCH (20:35)
[2018-08-14] MEDS ORDERED: Budesonide 0.25 MG/2 ML NEB ONE (22:12)
--- NOTE | 2018-08-15 00:41 | CON ---
DATE OF CONSULTATION: 08/14/2018 REASON FOR CONSULTATION: Nausea, vomiting, diarrhea, and abnormal GI imaging. CONSULTING PHYSICIAN: Dr. 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 He states that in 04/2018, he did h ave an episode of increased abdominal distention to the point where "I looked like I was ." However, within 2 weeks this resolved spontaneously with no further recurrence. However, two weeks a go, he had increased abdominal cramping located within the midepigastric/periumbilical region. This pain was characterized more as a cramping, aching type sensation, was intermittent and would reach a severity of approximately 7-8/10. The pain would sometimes radiate to the entire abdomen and would l ast for hours at a time. The pain was worse with increased burping, but also relieved with burping a nd relieved with increased physical activity. This increased abdominal pain was also associated with increased nausea and vomiting. With the nausea and the vomiting would not occur during the day, but would occur in the early evening shortly after the patient had a meal. Upon further questioning, th e patient stated that given the increase of his abdominal pain, he was not hungry and was not eating breakfast or lunch, but would only eat dinner. With his vomiting, it was characterized as nonbloody emesis and also associated with the vomiting was increased chest pain located primarily in the subste rnal region that would last for a few days and get worse with leaning in either direction which would direct the pain in that direction. He also endorses diarrhea during this last 2 weeks having approx imately 8-10 bowel movements at night, but only having sparse bowel movements during the day. These bowel movements were worse with eating with no clear alleviating factors. His bowel movements were c haracterized as semi-solid to liquid bowel movements with no difficulty with defecation. Of note, approximately 2 weeks ago, the patient had complaints of dysuria and was diagnosed with urin bell tract infection and given an antibiotic as a part of treatment for this condition, it was shortly after the completion of this antibiotic that he had the onset of the above symptoms (he could not re member the name of the antibiotic). With the increased abdominal pain, nausea, vomiting, and diarrhe a, it prompted the patient to seek healthcare assistance and while in the emergency room, the patient was found to have significantly decreased hemoglobin as well as CT findings consistent with diffuse enterocolitis. REVIEW OF SYSTEMS: A 10-category review of systems was obtained with all responses negative except f or the pertinent positives as listed in the HPI. PAST SURGICAL HISTORY: History of peritoneal dialysis catheter placement, kidney biopsy, thoracentes is for pleural effusion, laparoscopic appendectomy, and arteriovenous fistula formation for hemodialy sis. SOCIAL HISTORY: Denies any tobacco, alcohol or illicit drug use. OUTPATIENT MEDICATIONS: Reviewed. ALLERGIES: PROMETHAZINE. FAMILY HISTORY: Denies any GI malignancies. PHYSICAL EXAMINATION: VITAL SIGNS: Temperature 98.5, pulse 97, blood pressure 119/76, respiratory rate 16, satting 99% on room air. GENERAL: The patient is lying in bed in no acute distress. Alert and oriented x4. HEENT: Normocephalic, atraumatic. NECK: Supple. No JVD noted. No scleral icterus noted. CARDIOVASCULAR: Tachycardic rate, but regular rhythm. No discernible murmurs, gallops or rubs. RESPIRATORY: Clear to auscultation bilaterally with no discernible wheezes or rales. ABDOMEN: Normoactive bowel sounds, soft, nondistended. Tenderness to palpation in the right upper q uadrant, right lower quadrant and suprapubic regions. EXTREMITIES: No cyanosis, clubbing or edema. LABORATORY DATA: CBC with a white blood cell count of 6.4, hemoglobin 9, hematocrit 27.8, platelets 235. Chemistry with sodium of 132, potassium 4, chloride 99, CO2 22, BUN 49, creatinine 9.38, glucos e 84, AST 15, ALT less than 7, alkaline phosphatase 43, total bilirubin 0.2. IMAGING DATA: CT obtained on 08/13/2018 showed the peritoneal dialysis catheter in appropriate posit ion. A small right pleural effusion was also noted along with splenomegaly; however, abnormal wall t hickening was seen within the duodenum, multiple small bowel loops and colonic loops with significant ly increased ascites. ASSESSMENT AND PLAN: The patient is a 28-year-old male with past medical history of end-stage renal disease on hemodialysis (was previously on peritoneal dialysis), SLE with lupus nephritis, hyperparat hyroidism secondary to end-stage renal disease and anemia of renal disease, presenting with nausea, v omiting, diarrhea, and abnormal GI imaging consistent with enterocolitis. ENTEROCOLITIS: The patient is presenting with a 2-week history of increased nausea, vomiting, abdomi nal pain, and diarrhea shortly after the administration of antibiotic therapy related to urinary trac t infection. Imaging is showing diffuse wall thickening throughout the entire GI tract including the duodenum, small bowel and colon concerning for an inflammatory process or even infectious process. Thus far, infectious workup has been negative for E. coli, Campylobacter, C. diff, salmonella and Ceci gella. However, a peritoneal dialysate fluid/ascitic fluid is still pending at this time. The findi ngs of enterocolitis indicated by diffuse wall thickening of the GI tract could also be due to the in creased ascites which at this point could be either due to retained peritoneal dialysate fluid versus unknown etiology at which point an analysis of this ascitic fluid is paramount. RECOMMENDATIONS: 1. We will follow up on the remainder of the infectious stool studies as well as following up on the analysis of the peritoneal fluid that might indicate possible infectious etiology. 2. Since the patient has been started on antibiotic therapy, I would continue this therapy for the f ull course. 3. We would continue to trend H&H and transfuse as necessary to maintain an H&H of 7/21. 4. We will continue to monitor for signs of active gastrointestinal bleeding. 5. If the above workup is negative, I would then consider colonoscopy for evaluation of the GI tract and/or EGD at that time. 6. We would continue aggressive antiemetic control along with use of Bentyl as an antispasmodic. We will continue to follow. Please call with any questions.
[2018-08-15 05:23] LABS: #Eosinphils 0.1 thou/uL (0.0-0.7); #Lymphocytes 0.3 thou/uL (1.20-3.40); #Monocytes 0.2 thou/uL (0.11-0.59); #Neutrophils 4.7 thou/uL (1.40-6.50); %Basophils 0.1 % (0.0-1.0); %Eosinophils 2.5 % (0.0-10.0); %Lymphocytes 6.2 % (21.0-51.0); %Monocytes 3.4 % (0.0-10.0); %Neutrophils 87.9 % (42.0-75.0); Hemoglobin 7.8 g/dL (14.0-18.0); Mean Corpuscular HGB CONC 32.2 g/dL (32.0-36.0); Mean Corpuscular Hemoglobin 28.7 pg (27.0-31.0); Mean Corpuscular Volume 89.1 fL (78.0-98.0); Mean Platelet Volume 7.4 fL (7.4-10.4); Platelet Count 245 thou/uL (130-400); RBC Distribution Width 13.9 % (11.5-14.5); White Blood Cell (WBC) Count 5.4 thou/uL (4.8-10.8)
[2018-08-15 05:43] LABS: ALT (SGPT) Less than 7 U/L (8-55); AST (SGOT) 15 U/L (5-34); Albumin 2.1 g/dL (3.5-5.0); Alkaline Phosphatase 40 U/L (40-150); Anion Gap 12 mmol/L (10-20); BUN (Urea Nitrogen) 31 mg/dL (8.9-20.6); Bilirubin, Total 0.4 mg/dL (0.2-1.2); Calc. Creatinine Clearance 14 mL/min (70-130); Calcium 8.1 mg/dL (7.8-10.44); Carbon Dioxide 25 mmol/L (22-29); Chloride 100 mmol/L (98-107); Estimated GFR-MDRD 10; Globulin 3.1 g/dL (2.4-3.5); Glucose 90 mg/dL (70-105); Potassium 3.6 mmol/L (3.5-5.1); Protein, Total 5.2 g/dL (6.0-8.3); Sodium 133 mmol/L (136-145)
[2018-08-15] MEDS: ADMIXTURE FEE CHEMO IVPB SCH ×3 (06:01→21:19)
[2018-08-15] MEDS: METRONIDAZOLE IVPB SCH ×3 (06:01→21:19)
[2018-08-15] MEDS: HYDROcodone/Acetaminophen 5/325 mg Tablet PO PRN ×2 (06:16→15:31)
[2018-08-15] MEDS: Calcium Carbonate 500 MG ChewTAB PO SCH ×3 (08:00→18:24)
--- NOTE | 2018-08-15 08:34 | PRG ---
DATE OF SERVICE: 08/15/2018 Mr. Ewing is a 28-year-old white male with ESRD and seen by the Renal Service for his maintenance hemo dialysis. He underwent hemodialysis yesterday without any difficulty. We tried also to drain a resi dual PD fluid with him. We obtained a clear PD fluid. This was sent for Gram stain and culture and sensitivity. GI has also evaluated this patient due to an abdominal CT scan imaging. This morning, he voices no new complaints. He was also noted to be anemic. He was given 1 unit of p acked RBC yesterday. His Epogen has also been initiated. GI plan is to do an endoscopy. PHYSICAL EXAMINATION: VITAL SIGNS: Blood pressure 119/63, heart rate 87, respiratory rate 18, temperature 99.1, pulse ox 9 6%. GENERAL: Awake, alert, comfortable, not in distress. SKIN: Adequate turgor. HEENT: He has slightly pale conjunctivae, anicteric sclerae. NECK: No neck mass, no carotid bruits, no JVD. CHEST: No deformities. LUNGS: Decreased breath sounds. HEART: Normal sinus rhythm. No murmur, no gallops, no rubs. ABDOMEN: Globular, soft, nontender, no masses. EXTREMITIES: No edema, no deformities. He does have a PD catheter. MEDICATIONS: 08/15/2018 - Reviewed. LABORATORY DATA: 08/15/2018 - White count 5.4, hemoglobin 7.8. Sodium 133, potassium 3.6, chloride 100, carbon dioxide 25, BUN 31, creatinine 6.65, glucose 90, calcium 8.1, albumin is 2.1. Hepatitis B surface antigen negative. PD fluid showed white count of 270, it was noted to be yellow. PD fluid culture showed a few WBCs wi th no organisms seen. ASSESSMENT AND PLAN: 1. End-stage renal disease, stable. We will continue current hemodialysis regimen of 3 times a week . He is currently on backup hemodialysis until we can get the peritoneal dialysis going. We are hav ing some difficulty with drainage with his PD catheter. As an outpatient, we will resume back his pe ritoneal dialysis. 2. Anemia, status post blood transfusion, continuing weekly Epogen. 3. Symptomatic anemia - being evaluated by GI for possible endoscopy. 4. Systemic lupus erythematosus - stable - the patient was recently seen by the Rheumatology Service and it was felt that he is stable. Recheck base met and CBC in a.m.
[2018-08-15] MEDS ORDERED: Sodium Bicarbonate 2.5 MEQ/5 ML VIAL ONE (09:06)
[2018-08-15] MEDS ORDERED: Lidocaine 1% PF 5 ML VIAL ONE (09:06)
--- NOTE | 2018-08-15 11:12 | PDOC.PN ---
- Subjective Encounter Start Date: 08/15/18 Encounter Start Time: 10:00 -: old records requested/rev Patient seen and examined. still has diarrhoea and crampy abdominal pain but less intense, No overnight events - Objective Resuscitation Status: Resuscitation Status FULL:Full Resuscitation MAR Reviewed: Yes Vital Signs & Weight: Vital Signs (12 hours) Temp Pulse Resp BP Pulse Ox 08/15/18 08:00 99.1 F 87 18 119/63 96 08/15/18 04:00 99 F 83 16 121/75 94 L Weight Admit Weight 133 lb 2.547 oz Weight 123 lb 12.8 oz I&O: 08/14/18 08/15/18 08/16/18 06:59 06:59 06:59 Intake Total 350 2194 Output Total 3400 Balance 350 -1206 Result Diagrams: 08/15/18 04:46 08/15/18 04:46 Phys Exam - Physical Examination Constitutional: NAD HEENT: PERRLA, moist MMs, sclera anicteric Neck: no JVD, supple Respiratory: no wheezing, no rales, no rhonchi Tunneled HD catheter+ Cardiovascular: RRR, no significant murmur, no rub Gastrointestinal: soft, non-tender, no distention, positive bowel sounds PD catheter+ Musculoskeletal: no edema, pulses present Neurological: non-focal, normal sensation, moves all 4 limbs Lymphatic: no nodes Psychiatric: normal affect, A&O x 3 Skin: no rash, normal turgor Dx/Plan (1) Colitis Code(s): K52.9 - NONINFECTIVE GASTROENTERITIS AND COLITIS, UNSPECIFIED Status : Acute (2) Symptomatic anemia Code(s): D64.9 - ANEMIA, UNSPECIFIED Status: Acute (3) Anemia of renal disease Code(s): D63.1 - ANEMIA IN CHRONIC KIDNEY DISEASE Status: Chronic (4) ESRD (end stage renal disease) on dialysis Code(s): N18.6 - END STAGE RENAL DISEASE; Z99.2 - DEPENDENCE ON RENAL DIALYSIS Status: Chronic (5) Hypoalbuminemia Code(s): E88.09 - OTH DISORDERS OF PLASMA-PROTEIN METABOLISM, NEC Status: Chronic (6) SLE (systemic lupus erythematosus) Code(s): M32.9 - SYSTEMIC LUPUS ERYTHEMATOSUS, UNSPECIFIED Status: Chronic (7) Secondary hyperparathyroidism of renal origin Code(s): N25.81 - SECONDARY HYPERPARATHYROIDISM OF RENAL ORIGIN Status: Chronic - Plan cont current plan of care, continue antibiotics * continue empiric cipro and flagyl * stool for infection work up negative. * GI to decide about endoscopy * DC Tele * transfer to medical * medication reviewed as below * symptomatic treatment Review of Systems - Review of Systems Constitutional: negative: fever, chills, sweats, weakness, malaise, other Eyes: negative: Pain, Vision Change, Conjunctivae Inflammation, Eyelid Inflammation, Redness, Other ENT: negative: Ear Pain, Ear Discharge, Nose Pain, Nose Discharge, Nose Congestion, Mouth Pain, Mouth Swelling, Throat Pain, Throat Swelling, Other Respiratory: negative: Cough, Dry, Shortness of Breath, Hemoptysis, SOB with Excertion, Pleuritic Pain, Sputum, Wheezing Cardiovascular: negative: chest pain, palpitations, orthopnea, paroxysmal nocturnal dyspnea, edema, light headedness, other Gastrointestinal: Abdominal Pain, Diarrhea. negative: Nausea, Vomiting, Constipation, Melena, Hematochezia, Other Genitourinary: negative: Dysuria, Frequency, Incontinence, Hematuria, Retention , Other Musculoskeletal: negative: Neck Pain, Shoulder Pain, Arm Pain, Back Pain, Hand Pain, Leg Pain, Foot Pain, Other Skin: negative: Rash, Lesions, Karl, Bruising, Other - Medications/Allergies Allergies/Adverse Reactions: Allergies Allergy/AdvReac Type Severity Reaction Status Date / Time promethazine [From Phenergan] Allergy Verified 07/18/18 14:33 Medications: Current Medications Acetaminophen (Tylenol) 650 mg PO Q4H PRN PRN Reason: Headache/Fever/Mild Pain (1-3) Hydrocodone Bitart/Acetaminophen ([place] 5/325) 1 tab PO Q4H PRN PRN Reason: Moderate Pain (4-6) Last Admin: 08/15/18 06:16 Dose: 1 tab Artificial Tears (Tears Naturale) 0 drop EA EYE PRN PRN PRN Reason: Dry Eyes Calcitriol (Rocaltrol) 0.25 mcg PO QPM [facility] Last Admin: 08/14/18 20:35 Dose: 0.25 mcg Calcium Carbonate (Tums) 200 mg PO TID-[facility] Last Admin: 08/15/18 08:00 Dose: Not Given Dicyclomine HCl (Bentyl) 10 mg PO QPM [facility] Last Admin: 08/14/18 20:35 Dose: 10 mg Epoetin Aj (Procrit) 10,000 units SC Q7D [facility] Last Admin: 08/14/18 17:04 Dose: 10,000 units Famotidine (Pepcid) 20 mg SLOW IVP DAILY [facility] Last Admin: 08/14/18 09:10 Dose: 20 mg Ferrous Sulfate (Feosol) 325 mg PO QPM [facility] Last Admin: 08/14/18 20:35 Dose: 325 mg Guaifenesin (Robitussin Sf) 200 mg PO Q4H PRN PRN Reason: Cough Heparin Sodium (Porcine) (Heparin) 5,000 units SC BID [facility] Hydralazine HCl (Apresoline) 10 mg SLOW IVP Q4H PRN PRN Reason: Systolic BP > 180 Hydroxychloroquine Sulfate (Plaquenil) 200 mg PO DAILY [facility] Last Admin: 08/14/18 09:10 Dose: 200 mg Metronidazole 250 mg/Miscellaneous Medication 1 units/ Device 50 mls @ 100 mls/ hr IVPB Q8HR [facility] Last Admin: 08/15/18 06:01 Dose: 50 mls Ciprofloxacin/Dextrose 200 mg/ (Device) 100 mls @ 100 mls/hr IVPB Q12HR [facility] Last Admin: 08/14/18 20:31 Dose: 100 mls Loratadine (Claritin) 10 mg PO DAILYPRN PRN PRN Reason: Sinus Symptoms Mineral Oil/White Petrolatum (Eucerin Cream) 0 gm TOP BIDPRN PRN PRN Reason: Dry Skin Ondansetron HCl (Zofran Odt) 4 mg PO Q6H PRN PRN Reason: Nausea/Vomiting Ondansetron HCl (Zofran) 4 mg IVP Q6H PRN PRN Reason: Nausea/Vomiting Phenol (Chloraseptic [place] 180 Ml Bot) 0 ml PO PRN PRN PRN Reason: Sore Throat Saccharomyces Boulardii (Florastor) 250 mg PO DAILY [facility] Last Admin: 08/14/18 09:10 Dose: 250 mg Sodium Chloride ([place] Nasal [place] 0.65%) 0 ml EA NARE QIDPRN PRN PRN Reason: Nasal Congestion Zolpidem Tartrate (Ambien) 5 mg PO HSPRN PRN PRN Reason: Insomnia
--- NOTE | 2018-08-15 11:37 | ULT ---
ULTRASOUND-GUIDED PARACENTESIS WITH IMAGING: HISTORY: Peritonitis. COMPARISON: CT abdomen and pelvis from 08/13/2018. TECHNIQUE/FINDINGS: The patient was brought to the ultrasound suite. All questions were answered. Informed consent was obtained. A time out was performed. Lidocaine 3 mL was instilled into the superficial and deep soft tissues. Using a 22 gauge spinal nee dle, the peritoneal space was accessed, and 10 mL of fluid was removed. The patient tolerated the pr ocedure well, without complications. IMPRESSION: Technically successful ultrasound-guided diagnostic paracentesis. POS: ARLEEN
[2018-08-15] MEDS: Hydroxychloroquine Sulfate 200 MG TAB PO SCH (12:18)
[2018-08-15] MEDS: Saccharomyces boulardii 250 MG CAP PO SCH (12:19)
[2018-08-15] MEDS: Famotidine/PF 20 mg/2ml Vial SLOW IVP SCH (12:20)
[2018-08-15] MEDS: Ciprofloxacin Lactate/D5W 200 MG in Premix Bag 1 BAG IVPB SCH ×2 (13:06→21:09)
[2018-08-15] MEDS ORDERED: GoLYTELY 4,000 ml Bottle PO SCH (17:15)
--- NOTE | 2018-08-15 21:00 | PRG ---
DATE OF SERVICE: 08/15/2018 REASON FOR CONSULTATION: Nausea, vomiting, diarrhea, and abnormal GI imaging. SUBJECTIVE: The patient states that he is feeling better today with resolution of his nausea and vom iting as well as improvement of his abdominal pain; however, he continues to have significant diarrhe a, having approximately 5 liquid bowel movements over the last 24 hours. Currently, denies any nause a, vomiting, fevers, chills, dysphagia, odynophagia or GI bleeding. OBJECTIVE: VITAL SIGNS: Temperature 97.9, pulse 66, blood pressure 115/57, respiratory rate 16, satting 94% on room air. GENERAL: The patient is lying in bed, in no acute distress. Alert and oriented x4. CARDIOVASCULAR: Regular rate and rhythm. RESPIRATORY: Clear to auscultation bilaterally. ABDOMEN: Normoactive bowel sounds, soft, nondistended. Tenderness to palpation in the right upper q uadrant and right lower quadrant and suprapubic regions. EXTREMITIES: No cyanosis, clubbing or edema. LABORATORY DATA: CBC with a white blood cell count of 5.4, hemoglobin 7.8, hematocrit 24.1, platelet s 245. Chemistry with a sodium of 133, potassium 3.6, chloride 100, CO2 of 25, BUN 31, creatinine 6. 65, glucose 90. IMAGING DATA: The patient underwent a successful ultrasound guided paracentesis earlier today with t he removal of approximately 10 mL of fluid for evaluation of possible SBP. ASSESSMENT AND PLAN: The patient is a 28-year-old male with past medical history of end-stage renal disease, on hemodialysis; SLE with lupus nephritis; hyperparathyroidism secondary to end-stage renal and anemia of renal disease, presenting with nausea, vomiting, diarrhea, and abnormal GI imaging cons istent with enterocolitis. Enterocolitis: The patient is presenting with a 2-week history of increased nausea, vomiting, abdomi nal pain, and diarrhea shortly after the administration of an antibiotic related to urinary tract inf ection (unknown antibiotic administered). Imaging is now showing diffuse wall thickening throughout the entire GI tract including the duodenum, small bowel and colon concerning for an inflammatory infe ctious type process. Stool studies have been negative thus far for E. coli, Campylobacter, C. diff, Salmonella, Shigella. Testing of the peritoneal fluid/dialysate fluid was also unrevealing for an ob vious pathogenic organism. At this time, the origin of his diffuse GI tract inflammation and wall th ickening of the majority of it is unknown, with a differential including GI tract wall edema due to i ncreased ascites. Infectious etiology leukocytoclastic vasculitis of the GI tract secondary to medic ation administration (recent antibiotic use), eosinophilic enterocolitis and/or GI neoplasm (much les s likely). RECOMMENDATIONS: 1. We would continue antibiotic therapy for now given unknown etiology of patient's enterocolitis an d lack of pathological organism on initial studies, they were obtained shortly after starting the med ications. 2. We will continue to trend H&H and transfuse as necessary to maintain an H&H of 05/20. 3. Continue to monitor for signs of active gastrointestinal bleeding. 4. I will place the patient on a clear liquid diet tonight, make him n.p.o. at midnight in preparati on for endoscopic evaluation tomorrow. We will proceed with both EGD and colonoscopy at that time. 5. We would continue with aggressive antiemetic control along with Bentyl as an antispasmodic given his significant symptom relief. We will continue to follow. Please call with any questions.
[2018-08-15] MEDS: Calcitriol 0.25 MCG CAP PO SCH (21:08)
[2018-08-15] MEDS: Ferrous Sulfate 325 MG TAB PO SCH (21:08)
[2018-08-15] MEDS: Dicyclomine 10 MG CAP PO SCH (21:08)
[2018-08-15] MEDS: Heparin 5,000 UNITS/ML VIAL SC SCH (21:09)
[2018-08-16 04:21] LABS: #Eosinphils 0.2 thou/uL (0.0-0.7); #Lymphocytes 0.4 thou/uL (1.20-3.40); #Monocytes 0.2 thou/uL (0.11-0.59); #Neutrophils 3.1 thou/uL (1.40-6.50); %Basophils 0.1 % (0.0-1.0); %Eosinophils 4.5 % (0.0-10.0); %Lymphocytes 9.4 % (21.0-51.0); %Monocytes 4.8 % (0.0-10.0); %Neutrophils 81.2 % (42.0-75.0); Hemoglobin 7.9 g/dL (14.0-18.0); Mean Corpuscular HGB CONC 32.3 g/dL (32.0-36.0); Mean Corpuscular Hemoglobin 28.6 pg (27.0-31.0); Mean Corpuscular Volume 88.6 fL (78.0-98.0); Mean Platelet Volume 7.6 fL (7.4-10.4); Platelet Count 288 thou/uL (130-400); RBC Distribution Width 13.7 % (11.5-14.5); Red Blood Cell (RBC) Count 2.77 mill/uL (4.70-6.10); White Blood Cell (WBC) Count 3.8 thou/uL (4.8-10.8)
[2018-08-16 04:40] LABS: Anion Gap 14 mmol/L (10-20); BUN (Urea Nitrogen) 43 mg/dL (8.9-20.6); Calc. Creatinine Clearance 10 mL/min (70-130); Calcium 8.2 mg/dL (7.8-10.44); Carbon Dioxide 24 mmol/L (22-29); Chloride 98 mmol/L (98-107); Estimated GFR-MDRD 8; Glucose 79 mg/dL (70-105); Potassium 3.3 mmol/L (3.5-5.1); Sodium 133 mmol/L (136-145)
[2018-08-16] MEDS: ADMIXTURE FEE CHEMO IVPB SCH ×3 (08:19→21:36)
[2018-08-16] MEDS: Heparin 5,000 UNITS/ML VIAL SC SCH ×2 (08:19→21:21)
[2018-08-16] MEDS: Ciprofloxacin Lactate/D5W 200 MG in Premix Bag 1 BAG IVPB SCH ×3 (08:19→23:25)
[2018-08-16] MEDS: Calcium Carbonate 500 MG ChewTAB PO SCH ×3 (08:19→18:08)
[2018-08-16] MEDS: METRONIDAZOLE IVPB SCH ×3 (08:19→21:36)
[2018-08-16] MEDS ORDERED: Heparin 10,000 UNITS/ 10 ML VIAL ONE (10:00)
[2018-08-16] MEDS: Hydroxychloroquine Sulfate 200 MG TAB PO SCH ×2 (10:16→11:40)
[2018-08-16] MEDS: Famotidine 20 MG TAB PO SCH (10:16)
[2018-08-16] MEDS: Saccharomyces boulardii 250 MG CAP PO SCH (10:16)
--- NOTE | 2018-08-16 10:37 | PRG ---
DATE OF SERVICE: 08/16/2018 SUBJECTIVE: Mr. Ewing is a 28-year-old male with ESRD from lupus nephritis and admitted for symptomatic anemia. He has been evaluated by GI. He also has undergone ultrasound guided paracente sis, 10 mL of fluid was removed. I also had a PD fluid examined and there is currently no growth to date. No other complaints today. I am at the bedside supervising his hemodialysis. He seems to be tolerat ing the said treatment. He has also been seen by GI for symptomatic anemia. He is scheduled for an endoscopy today. No othe r complaints. PHYSICAL EXAMINATION: VITAL SIGNS: Blood pressure 130/86, heart rate 75, respiratory 16, temperature 98, pulse ox 96%. GENERAL: Noted to be awake, alert, comfortable, not in overt distress. SKIN: Adequate turgor. HEENT: He has slightly pale conjunctivae, anicteric sclerae. NECK: No neck mass, no carotid bruits, no JVD. CHEST: No deformities. LUNGS: Clear breath sounds. No wheezing, no crackles. HEART: Normal sinus rhythm. No murmur, no gallops or rubs. ABDOMEN: Globular, soft, nontender, no masses. Positive for PD catheter. EXTREMITIES: No edema, no deformities. MEDICATIONS: 08/16/2010 - Reviewed. LABORATORY: 08/16/2018 - White count 3.8, hemoglobin 7.9, hematocrit 24.5. Sodium 133, potassium 3. 3, chloride 98, carbon dioxide 24, BUN 43, creatinine 8.47, glucose 79, calcium 8.2. ASSESSMENT AND PLAN: 1. End-stage renal disease, stable. Continue current Tuesday, Tuesday, Tuesday hemodialysis. Fluid removal only as tolerated. We will use a 4-0 potassium bath due to the slightly lower potassium 3.3 . 2. Symptomatic anemia - currently on weekly Epogen. GI evaluating the patient. For a planned endos copy. P.r.n. blood transfusion. 3. Ascites. Ascitic fluid has been examined and sent for studies. The PD fluid that was sent showe d no growth to date. No evidence of infection at the present time. 4. Systemic lupus erythematosus - stable and quiescent. Recheck base met and CBC.
--- NOTE | 2018-08-16 11:55 | PDOC.PN ---
- Subjective Encounter Start Date: 08/16/18 Encounter Start Time: 09:30 Patient seen and examined. No new complaints. No overnight events - Objective Resuscitation Status: Resuscitation Status FULL:Full Resuscitation MAR Reviewed: Yes Vital Signs & Weight: Vital Signs (12 hours) Temp Pulse Resp BP Pulse Ox 08/16/18 07:55 96 08/16/18 07:50 98.0 F 75 16 130/86 96 08/16/18 04:00 97.6 F 85 16 127/82 98 08/16/18 00:00 97.6 F 77 16 120/81 96 Weight Admit Weight 133 lb 2.547 oz Weight 123 lb 12.8 oz I&O: 08/15/18 08/16/18 08/17/18 06:59 06:59 06:59 Intake Total 2194 240 Output Total 3400 Balance -1206 240 Result Diagrams: 08/16/18 03:35 08/16/18 03:35 Phys Exam - Physical Examination Constitutional: NAD HEENT: PERRLA, moist MMs, sclera anicteric Neck: no JVD, supple Respiratory: no wheezing, no rales, no rhonchi Cardiovascular: RRR, no significant murmur, no rub Gastrointestinal: soft, non-tender, no distention, positive bowel sounds Musculoskeletal: no edema, pulses present Neurological: non-focal, normal sensation Psychiatric: normal affect, A&O x 3 Skin: no rash, normal turgor Dx/Plan (1) Colitis Code(s): K52.9 - NONINFECTIVE GASTROENTERITIS AND COLITIS, UNSPECIFIED Status : Acute (2) Symptomatic anemia Code(s): D64.9 - ANEMIA, UNSPECIFIED Status: Acute (3) Anemia of renal disease Code(s): D63.1 - ANEMIA IN CHRONIC KIDNEY DISEASE Status: Chronic (4) ESRD (end stage renal disease) on dialysis Code(s): N18.6 - END STAGE RENAL DISEASE; Z99.2 - DEPENDENCE ON RENAL DIALYSIS Status: Chronic (5) Hypoalbuminemia Code(s): E88.09 - OTH DISORDERS OF PLASMA-PROTEIN METABOLISM, NEC Status: Chronic (6) SLE (systemic lupus erythematosus) Code(s): M32.9 - SYSTEMIC LUPUS ERYTHEMATOSUS, UNSPECIFIED Status: Chronic (7) Secondary hyperparathyroidism of renal origin Code(s): N25.81 - SECONDARY HYPERPARATHYROIDISM OF RENAL ORIGIN Status: Chronic - Plan cont current plan of care, continue antibiotics * pt is planned for endoscopic evaluation * continue empiric cipro and flagyl * expecting discharge tomorrow * medication reviewed as below * symptomatic treatment * HD today. Review of Systems - Review of Systems Eyes: negative: Pain, Vision Change, Conjunctivae Inflammation, Eyelid Inflammation, Redness, Other ENT: negative: Ear Pain, Ear Discharge, Nose Pain, Nose Discharge, Nose Congestion, Mouth Pain, Mouth Swelling, Throat Pain, Throat Swelling, Other Respiratory: negative: Cough, Dry, Shortness of Breath, Hemoptysis, SOB with Excertion, Pleuritic Pain, Sputum, Wheezing Cardiovascular: negative: chest pain, palpitations, orthopnea, paroxysmal nocturnal dyspnea, edema, light headedness, other Gastrointestinal: Diarrhea. negative: Nausea, Vomiting, Abdominal Pain, Constipation, Melena, Hematochezia, Other Genitourinary: negative: Dysuria, Frequency, Incontinence, Hematuria, Retention , Other Musculoskeletal: negative: Neck Pain, Shoulder Pain, Arm Pain, Back Pain, Hand Pain, Leg Pain, Foot Pain, Other Skin: negative: Rash, Lesions, Karl, Bruising, Other - Medications/Allergies Allergies/Adverse Reactions: Allergies Allergy/AdvReac Type Severity Reaction Status Date / Time promethazine [From Phenergan] Allergy Verified 07/18/18 14:33 Medications: Current Medications Acetaminophen (Tylenol) 650 mg PO Q4H PRN PRN Reason: Headache/Fever/Mild Pain (1-3) Hydrocodone Bitart/Acetaminophen ([place] 5/325) 1 tab PO Q4H PRN PRN Reason: Moderate Pain (4-6) Last Admin: 08/15/18 15:31 Dose: 1 tab Artificial Tears (Tears Naturale) 0 drop EA EYE PRN PRN PRN Reason: Dry Eyes Calcitriol (Rocaltrol) 0.25 mcg PO QPM [facility] Last Admin: 08/15/18 21:08 Dose: 0.25 mcg Calcium Carbonate (Tums) 200 mg PO TID[facility] Last Admin: 08/16/18 08:19 Dose: Not Given Dicyclomine HCl (Bentyl) 10 mg PO QPM [facility] Last Admin: 08/15/18 21:08 Dose: 10 mg Epoetin Aj (Procrit) 10,000 units SC Q7D [facility] Last Admin: 08/14/18 17:04 Dose: 10,000 units Famotidine (Pepcid) 20 mg PO DAILY [facility] Last Admin: 08/16/18 10:16 Dose: Not Given Ferrous Sulfate (Feosol) 325 mg PO QPM [facility] Last Admin: 08/15/18 21:08 Dose: 325 mg Guaifenesin (Robitussin Sf) 200 mg PO Q4H PRN PRN Reason: Cough Heparin Sodium (Porcine) (Heparin) 5,000 units SC BID [facility] Last Admin: 08/16/18 08:19 Dose: Not Given Hydralazine HCl (Apresoline) 10 mg SLOW IVP Q4H PRN PRN Reason: Systolic BP > 180 Hydroxychloroquine Sulfate (Plaquenil) 200 mg PO DAILY [facility] Last Admin: 08/15/18 12:18 Dose: 200 mg Metronidazole 250 mg/Miscellaneous Medication 1 units/ Device 50 mls @ 100 mls/ hr IVPB Q8HR [facility] Last Admin: 08/16/18 08:19 Dose: Not Given Ciprofloxacin/Dextrose 200 mg/ (Device) 100 mls @ 100 mls/hr IVPB 1200,2359 [facility] Loratadine (Claritin) 10 mg PO DAILYPRN PRN PRN Reason: Sinus Symptoms Mineral Oil/White Petrolatum (Eucerin Cream) 0 gm TOP BIDPRN PRN PRN Reason: Dry Skin Ondansetron HCl (Zofran Odt) 4 mg PO Q6H PRN PRN Reason: Nausea/Vomiting Ondansetron HCl (Zofran) 4 mg IVP Q6H PRN PRN Reason: Nausea/Vomiting Phenol (Chloraseptic [place] 180 Ml Bot) 0 ml PO PRN PRN PRN Reason: Sore Throat Saccharomyces Boulardii (Florastor) 250 mg PO DAILY [facility] Last Admin: 08/16/18 10:16 Dose: Not Given Sodium Chloride ([place] Nasal [place] 0.65%) 0 ml EA NARE QIDPRN PRN PRN Reason: Nasal Congestion Zolpidem Tartrate (Ambien) 5 mg PO HSPRN PRN PRN Reason: Insomnia
[2018-08-16] MEDS ORDERED: Midazolam HCl 2 mg/2 ml Vial ONE (12:20)
[2018-08-16] MEDS ORDERED: Midazolam HCl 2 mg/ml Syrup 5 ml UD Cup ONE (12:21)
[2018-08-16 15:04] VITALS: BMI 17.7
[2018-08-16] MEDS ORDERED: PROPOFOL 200 MG/20 ML VIAL ONE (15:04)
[2018-08-16] MEDS ORDERED: Lidocaine 1% PF 5 ML VIAL ONE (15:04)
--- NOTE | 2018-08-16 17:43 | OP ---
DATE OF SERVICE: 08/16/2018 PROCEDURES: 1. Esophagogastroduodenoscopy with biopsy. 2. Colonoscopy with biopsy. SURGEON: Bhavesh Morris M.D. ANESTHESIA: Medication given per Anesthesiology Department. PREOPERATIVE DIAGNOSES: 1. Nausea, vomiting, diarrhea. 2. Diffuse abdominal pain. 3. CT demonstrating inflammatory changes involving small bowel and colon. 4. Background history of systemic lupus erythematosus. POSTOPERATIVE DIAGNOSES: 1. Normal upper endoscopy. 2. Normal terminal ileum. 3. Mild edema with loss of vascularity in the ascending colon, otherwise normal colon exam. PROCEDURE IN DETAIL: Written consent was obtained prior to procedure. After adequate sedation, the forward-viewing endoscope was advanced down the stomach under direct vision to the third portion of duodenum. The entire duodenum appeared normal. There was no mucosal abnormality. Biopsies were obtained. The pylorus is patent. The gastric antrum, body, fundus, and cardia all appeared normal. GE junction was located at 36 cm with regular Z-line. The esophagus appeared normal. The patient was then repositioned for colon exam. Digital exam performed was normal. Endoscope was advanced to the cecum. The distal ileum was intubated. The distal ileum appeared normal. In the ascending colon, the mucosa was edematous with loss of vascularity. However, there was no mucosal break or lesion seen. The transverse colon, splenic flexure, descending colon, and rectosigmoid colon appeared normal. Random biopsies were obtained from the right and the left colon. Retroflexion was normal in the rectal vault. The patient tolerated the procedure well. ASSESSMENT: 1. Mild ascending colon edema with loss of vascularity, otherwise normal colon exam, ileum, and upper exam to duodenum. 2. Suspect SLE enteritis thus far with stool and peritoneal fluid culture being all negative and no other source of infection. RECOMMENDATIONS: 1. We will advance diet. 2. We will start on IV corticosteroid, methylprednisolone and monitor closely. 3. The patient does well, can discharge on prednisone taper tomorrow. [facility]
[2018-08-16] MEDS: Ferrous Sulfate 325 MG TAB PO SCH (21:20)
[2018-08-16] MEDS: Dicyclomine 10 MG CAP PO SCH (21:20)
[2018-08-16] MEDS: Calcitriol 0.25 MCG CAP PO SCH (21:21)
[2018-08-17 04:10] LABS: #Lymphocytes 0.2 thou/uL (1.20-3.40); #Neutrophils 3.4 thou/uL (1.40-6.50); %Eosinophils 0.1 % (0.0-10.0); %Lymphocytes 5.8 % (21.0-51.0); %Monocytes 1.1 % (0.0-10.0); Hemoglobin 8.6 g/dL (14.0-18.0); Mean Corpuscular HGB CONC 32.7 g/dL (32.0-36.0); Mean Corpuscular Hemoglobin 28.8 pg (27.0-31.0); Mean Corpuscular Volume 88.1 fL (78.0-98.0); Mean Platelet Volume 7.6 fL (7.4-10.4); Platelet Count 282 thou/uL (130-400); RBC Distribution Width 13.7 % (11.5-14.5); Red Blood Cell (RBC) Count 2.98 mill/uL (4.70-6.10); White Blood Cell (WBC) Count 3.6 thou/uL (4.8-10.8)
[2018-08-17 04:27] LABS: Anion Gap 15 mmol/L (10-20); BUN (Urea Nitrogen) 45 mg/dL (8.9-20.6); Calc. Creatinine Clearance 13 mL/min (70-130); Calcium 8.2 mg/dL (7.8-10.44); Carbon Dioxide 22 mmol/L (22-29); Chloride 100 mmol/L (98-107); Estimated GFR-MDRD 10; Glucose 138 mg/dL (70-105); Potassium 3.9 mmol/L (3.5-5.1); Sodium 133 mmol/L (136-145)
[2018-08-17] MEDS: ADMIXTURE FEE CHEMO IVPB SCH (05:12)
[2018-08-17] MEDS: METRONIDAZOLE IVPB SCH (05:12)
[2018-08-17] MEDS: Hydroxychloroquine Sulfate 200 MG TAB PO SCH (08:46)
[2018-08-17] MEDS: Heparin 5,000 UNITS/ML VIAL SC SCH (08:46)
[2018-08-17] MEDS: Saccharomyces boulardii 250 MG CAP PO SCH (08:46)
[2018-08-17] MEDS: Famotidine 20 MG TAB PO SCH (08:46)
[2018-08-17] MEDS: Calcium Carbonate 500 MG ChewTAB PO SCH (08:51)
[2018-08-17] MEDS ORDERED: metroNIDAZOLE 250 MG TAB PO SCH (09:00)
[2018-08-17] MEDS ORDERED: Cipro 250 MG TAB PO SCH (09:00)
--- NOTE | 2018-08-17 10:03 | PRG ---
DATE OF SERVICE: 08/17/2018 REASON FOR CONSULTATION: Nausea, vomiting, diarrhea and abnormal GI imaging. SUBJECTIVE: The patient underwent both EGD and colonoscopy yesterday with relatively normal findings on both the upper and lower GI tract. There was some mild edematous mucosa seen within the ascendin g colon that was biopsied as well as random biopsies throughout the upper GI tract to determine a pos sible etiology for the findings seen on imaging. Today, he states he is feeling much better with no abdominal pain, no further nausea and vomiting and has not had a bowel movement since the colonoscopy yesterday. He also adds that he was able to tolerate his breakfast well without any recurrence of h is nausea and vomiting. Currently, denies any nausea, vomiting, fevers, chills, abdominal pain, dysp hagia, odynophagia or GI bleeding. OBJECTIVE: VITAL SIGNS: Temperature 97.6, pulse 80, blood pressure 142/91, respiratory rate 18, satting 97% on room air. GENERAL: The patient is lying in bed in no acute distress. Alert and oriented x4. CARDIOVASCULAR: Regular rate and rhythm. RESPIRATORY: Clear to auscultation bilaterally. ABDOMEN: Normoactive bowel sounds, soft, nontender, nondistended. EXTREMITIES: No cyanosis, clubbing or edema. LABORATORY DATA: CBC with a white blood cell count of 3.6, hemoglobin 8.6, hematocrit 26.3, platelet s 282. Chemistry with sodium of 133, potassium 3.9, chloride 100, CO2 22, BUN 45, creatinine 6.62, g lucose 138. IMAGING DATA: EGD and colonoscopy were performed on 08/16/2018 with normal appearing mucosa seen thr oughout the entire upper GI tract including the esophagus, stomach and proximal small intestine/duode num. During the colonoscopy, there was some edematous mucosa with loss of vascularity in the ascendi ng colon, but there was no mucosal break or lesions seen. The transverse colon, splenic flexure, choco cending, and rectosigmoid colons all appeared normal. ASSESSMENT AND PLAN: The patient is a 28-year-old male with past medical history of end-stage renal disease on hemodialysis, SLE with lupus nephritis, hyperparathyroidism secondary to end-stage renal d isease, anemia of renal disease, presenting with nausea, vomiting, diarrhea, and abnormal GI imaging consistent with enterocolitis. ENTEROCOLITIS: The patient is presenting with a 2-week history of increased nausea, vomiting, abdomi nal pain, and diarrhea shortly after administration of antibiotics for urinary tract infection. On a dmission, he was noted to have diffuse wall thickening throughout the entire GI tract with CBC and ch emistries relatively normal except for moderate anemia and elevated BUN and creatinine consistent wit h his end-stage renal disease. Infectious stool studies were negative for E. coli, Campylobacter, C. diff, Salmonella, Shigella, and culture was negative. Testing of the peritoneal fluid/dialysate flu id was also unrevealing for an obvious pathogenic organism. Paracentesis was also performed with the fluid negative for an obvious pathogen as well. He underwent EGD and colonoscopy on 08/16/2018 with relatively normal findings except for some mild increased edema within the ascending colon as well a s some mild vascularity with biopsies pending at this time. At this point, the findings are more con sistent with lupus enteritis and would therefore possibly respond to a short course steroid burst. RECOMMENDATIONS: 1. Would continue antibiotic therapy given patient's improvement and possible pathologic organism th at not seen on Infectious stool studies. Duration to be determined by primary team. 2. Continue to monitor for signs of active gastrointestinal bleeding. 3. We would continue steroids as an outpatient in a burst dose fashion over the next week, patient t o follow up with his physician managing his lupus. 4. Continue with antiemetic control along with Bentyl for nausea and abdominal pain relief, respecti vely. We will sign off at this time. Please call with any additional questions.
--- NOTE | 2018-08-17 10:12 | DIS ---
DATE OF ADMISSION: 08/14/2018 DATE OF DISCHARGE: 08/17/2018 PRIMARY CARE PHYSICIAN: Judi Estrada D.O. DISCHARGE DISPOSITION: Home. PRIMARY DISCHARGE DIAGNOSES: 1. Enteritis colitis likely due to lupus. 2. Symptomatic anemia, status post 2 units transfusion. SECONDARY DISCHARGE DIAGNOSES: Anemia of renal disease, end-stage renal disease on hemodialysis, chr onic hypoalbuminemia, systemic lupus erythematosus, secondary hyperparathyroidism of renal origin. PRIMARY PROCEDURE/OPERATION: EGD and colonoscopy was unremarkable. Biopsy was obtained. Pathology report is pending. Paracentesis was performed and ruled out peritonitis. RADIOLOGICAL INVESTIGATIONS: CT of the abdomen and pelvis showed nonspecific thickening of the duode num, small intestine and colon. TEST RESULTS PENDING ON DISCHARGE: Biopsy report. SIGNIFICANT LABORATORY DATA: WBC 3.6, hemoglobin 8.6, platelets were 282,000. Sodium 133, potassium 3.9, BUN 45, creatinine 6.62, calcium 8.2, albumin 2.1. Peritoneal fluid negative for any infection . Hepatitis B surface antigen negative. Stool for infection negative. Culture negative. DISCHARGE MEDICATIONS: Cipro 250 mg p.o. daily for 3 days, Flagyl 250 mg t.i.d. for 3 days, Imodium 2 mg p.o. as directed for diarrhea, Pepcid 20 mg p.o. daily, prednisone 40 mg p.o. daily for 1 week t hen 20 mg p.o. daily for 1 week and then 10 mg p.o. daily for 1 week, Florastor 250 mg p.o. daily, Ro caltrol 0.25 mg p.o. daily, Tums 1 tablet t.i.d., Bentyl 10 mg in evening p.r.n., ferrous sulfate 325 mg p.o. daily, Plaquenil 200 mg p.o. daily, Pepcid 20 mg p.o. daily. CONTRAINDICATIONS: None. CODE STATUS: Full code. INPATIENT CONSULTANTS: Dr. Causey was following while in hospital. Dr. Morris and GI team were consulted for enteritis. ALLERGIES: PROMETHAZINE. DISCHARGE PLAN: Post hospital, the patient will follow up with primary care physician, Dr. Causey as we ll as Rheumatology. HOSPITAL COURSE: A 28-year-old male who was having diarrhea for the last 2 weeks. He was also feeli ng weak and tired. His hemoglobin on admission was 6.4. He was having symptomatic anemia. For his abdominal discomfort and diarrhea, CT of the abdomen and pelvis done in the emergency room showed non specific thickening of the duodenum, small intestine and colon. He was suspected for colitis. He wa s admitted to the hospital. He was treated with empiric antibiotic therapy. We did stool for infect ion workup, which came back negative. The patient was having recurrent diarrhea and that is why GI t eam decided to do upper and lower endoscopy. Biopsy was obtained. Biopsy report is pending. At thi s point, we are suspecting that as infection completely ruled out including peritonitis, the patient may have underlying lupus involvement and that is why the patient was treated with Solu-Medrol while in hospital and on discharge, we prescribed tapering doses of prednisone. The patient will follow up with Rheumatology for his lupus. The patient is seen and examined at bedside today. All review of system reviewed with him and negati ve. PHYSICAL EXAMINATION: VITAL SIGNS: Currently, temperature 97.6, pulse 80, respiratory rate 18, saturation 97% on room air, blood pressure 142/91, weight 123 pounds. GENERAL: The patient is currently alert, awake, in no obvious acute distress. HEAD: Normocephalic, atraumatic. EYES: Pupils round and reactive to light. Extraocular muscle intact. ENT: Oropharynx within normal limits. Moist mucous membranes. No oral lesion, no pharyngeal erythe ma, no exudate. NECK: Supple. No JVD, no thyromegaly, no carotid bruit. LUNGS: Clear to auscultation without any rhonchi or rales. CARDIAC: S1, S2 regular without any murmur. ABDOMEN: Soft, benign without any tenderness. EXTREMITIES: No edema. NEUROLOGIC: Nonfocal examination. This patient's peritoneal dialysis catheter will be removed by Dr. Causey as needed.
--- NOTE | 2018-08-17 10:15 | PRG ---
DATE OF SERVICE: 08/17/2018 SUBJECTIVE: Mr. Ewing is a 28-year-old male with ESRD from lupus nephritis and being followe d by [facility] for maintenance hemodialysis. He underwent dialysis yesterday without any dif ficulty. He also underwent a colonoscopy yesterday. There was a mild edema with loss of vascularity in the ascending colon. The feeling is this could be related from his lupus. The plan is to start him on prednisone. No other complaints today, no chest pain or shortness of breath. OBJECTIVE: VITAL SIGNS: Blood pressure 142/91, heart rate 80, respiratory rate 18, temperature 97.6, pulse ox 9 7%. GENERAL: Awake, alert, comfortable, not in distress. SKIN: Adequate turgor. HEENT: Slightly pale conjunctivae, anicteric sclerae. NECK: No neck mass, no carotid bruits, no JVD. CHEST: No deformities. LUNGS: Clear breath sounds, no wheezing, no crackles. HEART: Normal sinus rhythm. No murmur, no gallops or rubs. ABDOMEN: Globular, soft, nontender. No masses. EXTREMITIES: No edema. He does have a PD catheter in the abdomen. MEDICATIONS: 08/17/2018 - Reviewed. LABORATORY: 08/17/2018 - White count 3.6, hemoglobin 8.6. Sodium 133, potassium 3.9, chloride 100, carbon dioxide 22, BUN 45, creatinine 6.62, glucose 138, calcium 8.2. ASSESSMENT AND PLAN: 1. End-stage renal disease, stable. We will continue current maintenance hemodialysis. We will aga in retry peritoneal dialysis in the outpatient clinic. His PD catheter has not been functional recen tly. 2. Systemic lupus erythematosus - managed by his it security manager. 3. Inflammatory colon - steroids to be started by GI. The feeling this could be related from his un derlying lupus. 4. Anemia - on weekly Epogen. I agree with current management.
[2018-08-17 11:48] VITALS: BP 134/91; TEMP 97.4
== END 2018-08-17 12:14 | disposition home or self-care (01) | DRG 391 ==
LOC: ERS 21:40 → 2NO 08-14 00:55 → T4-B 08-15 09:54
PROVIDERS: ADMIT Hospitalist; ATTEND Hospitalist
PROC: 30233N1 Transfusion of Nonautologous Red Blood Cells into Peripheral Vein, Percutaneous Approach (ICD-10-PCS; principal; 2018-08-15)
PROC: 0W9G3ZZ Drainage of Peritoneal Cavity, Percutaneous Approach (ICD-10-PCS; 2018-08-15)
PROC: 0DB68ZX Excision of Stomach, Via Natural or Artificial Opening Endoscopic, Diagnostic (ICD-10-PCS; 2018-08-16)
PROC: 0DBG8ZX Excision of Left Large Intestine, Via Natural or Artificial Opening Endoscopic, Diagnostic (ICD-10-PCS; 2018-08-16)
PROC: 0DBF8ZX Excision of Right Large Intestine, Via Natural or Artificial Opening Endoscopic, Diagnostic (ICD-10-PCS; 2018-08-16)
DX: K52.9 Noninfective gastroenteritis and colitis, unspecified (principal); N18.6 End stage renal disease; N25.81 Secondary hyperparathyroidism of renal origin; R18.8 Other ascites; D63.1 Anemia in chronic kidney disease; M32.9 Systemic lupus erythematosus, unspecified; Z99.2 Dependence on renal dialysis; E88.09 Other disorders of plasma-protein metabolism, not elsewhere classified
CPT/HCPCS: 36415; 36430; 49083; 74177; 80048; 80053; 80069; 82274; 82945; 83605; 83615; 83690; 84157; 85025; 85060; 86850; 86870; 86900; 86901; 86905; 86922; 87045; 87046; 87070; 87205; 87324; 87328; 87329; 87340; 87449; 87899; 88305; 89051; 90471; 90670; 90935; 96361; 96365; 96372; 96375; 96376; G0009; G0257; J0744; J1644; J2001; J2250; J2270; J2405; J2704; J2920; J7626; P9016; Q4081; S0028

== ENCOUNTER 2019-01-22 19:15 | Inpatient (IN) | payer OTHER ==
[2019-01-22] MEDS ORDERED: diphenhydrAMINE 50 MG/ML VIAL ONE (21:17)
[2019-01-22 21:21] LABS: #Lymphocytes 0.4 thou/uL (1.20-3.40); #Monocytes 0.2 thou/uL (0.11-0.59); #Neutrophils 3.2 thou/uL (1.40-6.50); %Eosinophils 1.1 % (0.0-10.0); %Lymphocytes 9.9 % (21.0-51.0); %Monocytes 5.9 % (0.0-10.0); %Neutrophils 83.1 % (42.0-75.0); Hemoglobin 10.2 g/dL (14.0-18.0); Mean Corpuscular HGB CONC 31.6 g/dL (32.0-36.0); Mean Corpuscular Hemoglobin 26.4 pg (27.0-31.0); Mean Corpuscular Volume 83.6 fL (78.0-98.0); Mean Platelet Volume 8.9 fL (7.4-10.4); Platelet Count 169 thou/uL (130-400); RBC Distribution Width 14.5 % (11.5-14.5); Red Blood Cell (RBC) Count 3.85 mill/uL (4.70-6.10); White Blood Cell (WBC) Count 3.8 thou/uL (4.8-10.8)
[2019-01-22 21:36] LABS: ALT (SGPT) 8 U/L (8-55); AST (SGOT) 10 U/L (5-34); Albumin 3.4 g/dL (3.5-5.0); Alkaline Phosphatase 47 U/L (40-150); Anion Gap 16 mmol/L (10-20); BUN (Urea Nitrogen) 44 mg/dL (8.9-20.6); Bilirubin, Total 0.4 mg/dL (0.2-1.2); CRP (Inflammatory) 4.49 mg/dL (= or < 0.5); Calc. Creatinine Clearance 0 mL/min (70-130); Calcium 9.5 mg/dL (7.8-10.44); Carbon Dioxide 29 mmol/L (22-29); Chloride 98 mmol/L (98-107); Estimated GFR-MDRD 9; Globulin 3.6 g/dL (2.4-3.5); Glucose 79 mg/dL (70-105); Potassium 4.5 mmol/L (3.5-5.1); Sodium 138 mmol/L (136-145)
[2019-01-22] MEDS ORDERED: KETAMINE IVPB SCH (22:00)
[2019-01-22] MEDS ORDERED: SODIUM CHLORIDE 0.9% IVPB SCH (22:00)
[2019-01-22] MEDS ORDERED: methylPREDNISolone Sod Succ/PF 125 MG/2 ML VIAL ONE (22:23)
--- NOTE | 2019-01-22 22:27 | CT ---
CT HEAD NONCONTRAST: History: Headache. Photophobia. Comparison: 12-19-13 FINDINGS: There is no evidence of acute intracranial hemorrhage or infarct. Areas of decreased density within e ach cerebral hemisphere on the prior study have resolved. There is no mass effect or shift of midline structures. Visualized paranasal sinuses remain well aerated. IMPRESSION: No acute intracranial abnormalities are demonstrated. POS: [facility]
[2019-01-22] MEDS ORDERED: cloNIDine 0.1 MG TAB ONE (22:30)
[2019-01-22] MEDS ORDERED: hydrALAZINE 20 MG/ML VIAL ONE (22:30)
[2019-01-22] MEDS ORDERED: niCARdipine 20MG In NaCl 20 MG/200 ML BAG ONE (23:45)
[2019-01-22] MEDS ORDERED: niCARdipine HCl 25 MG in Sodium Chloride 0.9% 250 ML 240 ML IVPB SCH (23:45)
[2019-01-23] MEDS ORDERED: Fiorinal 325/50/40 mg Tablet PO SCH (00:30)
[2019-01-23] MEDS ORDERED: Acetaminophen 325 MG TAB PO PRN ×2 (01:40→01:47)
[2019-01-23] MEDS ORDERED: Ondansetron PF 4 MG/2 ML Vial IVP PRN (01:40)
[2019-01-23] MEDS ORDERED: Ondansetron ODT 4 MG TAB SL PRN (01:40)
[2019-01-23 01:46] VITALS: BMI 19.1
[2019-01-23] MEDS ORDERED: Fiorinal 325/50/40 mg Tablet PO PRN (01:47)
[2019-01-23] MEDS ORDERED: hydrALAZINE 20 MG/ML VIAL SLOW IVP PRN (01:47)
[2019-01-23] MEDS ORDERED: Labetalol HCl 100 MG/20 ML VIAL SLOW IVP PRN (01:47)
[2019-01-23] MEDS ORDERED: Lorazepam 2 MG/ML VIAL SLOW IVP PRN (01:47)
[2019-01-23] MEDS: cloNIDine 0.1 MG TAB PO PRN (03:44)
--- NOTE | 2019-01-23 03:49 | HP ---
PRIMARY CARE PHYSICIAN: Dr. Estrada. CHIEF COMPLAINT: Severe headache. HISTORY OF PRESENT ILLNESS: Mr. Ewing is a pleasant 28-year-old gentleman, who presents to the emergency room complaining of a severe headache. He says that it started this morning when he first got up. He did notice a little bit of a headache the night before. He describes it as throbbing and in and all sides of his head. He rates it about a 10/10 and he says it has not changed since he has been in the ER and after he has received several medications for the headache. He does note some nausea and blurred vision as well and some photophobia. When asked if he has ever had a headache like this before, he says he has off and on. He says it has never been this bad however. He has told his primary care physician about the headache and was told that it was likely related to his blood pressure. He has had blood pressure for a number of years and says it is generally not controlled. When he checks his blood pressure, it usually runs about 160/100 or so systolic. The patient also has end-stage renal disease and he is on hemodialysis. He went to dialysis on the day of admission in the ER and says that the headache was so bad that he had to be taken off the machine early and only got about 2-1/2 hours of the session. He denies any chest pain. No shortness of breath. No leg swelling. No fevers. No chills. No sinus congestion. He does complain of some tingling in both arms. Otherwise, no other complaints. REVIEW OF SYSTEMS: All systems were reviewed and are negative except for that mentioned in the history of present illness. PAST MEDICAL HISTORY: Significant for end-stage renal disease, on hemodialysis Tuesday, Tuesday, and Tuesday; systemic lupus; anemia of renal disease. He said he had a seizure back in August as well as chronic headaches. PAST SURGICAL HISTORY: He has had a PD catheter placed, a hemodialysis catheter. He has had a kidney biopsy, thoracentesis, and an appendectomy. ALLERGIES: PROMETHAZINE. SOCIAL HISTORY: He is a nonsmoker and nondrinker. He does not have any children. FAMILY HISTORY: His grandmother had lupus. Father had diabetes and kidney failure. CURRENT MEDICATIONS: These are taken from his dialysis records and include; 1. Losartan 50 mg daily. 2. Procardia XL 60 mg a day. 3. Hydralazine 100 mg twice a day. 4. Carvedilol 25 mg twice daily. 5. Torsemide 20 mg every other week. 6. Dicyclomine 10 mg daily. 7. Famotidine 20 mg twice a day. 8. Ferrous sulfate 325 mg daily. 9. Plaquenil mg a day. 10. Keppra 500 mg daily. PHYSICAL EXAMINATION: GENERAL: He is alert and oriented. He is lying on the stretcher with his eyes closed. His girlfriend is on the stretcher along with him. VITAL SIGNS: Currently, his blood pressure was 150/106, heart rate is in the 80s, respiratory rate of 20, and temperature 98.6. HEENT: Pupils are equal, round, and reactive. Extraocular muscles are intact. Sclerae anicteric. Throat, there is no erythema, no exudates. NECK: No adenopathy. No bruits. LUNGS: Clear to auscultation. There is no wheezing, no rales, no rhonchi. CARDIOVASCULAR: He has a normal S1 and S2. There was no S3 or S4. No murmurs, clicks, or rubs. ABDOMEN: Obese. It is soft. It is nontender, nondistended. Positive for bowel sounds. There is no rebound, no guarding, no organomegaly. EXTREMITIES: There is no edema. No calf tenderness. No redness or warmth. NEUROLOGIC: His cranial nerves 2 through 12 are intact. Muscle strength is 5/5 in both his upper and lower extremities, and there is no drift. IMAGING: He had a CT scan which was negative for any acute intracranial abnormalities. LABORATORY DATA: Sodium is 138, potassium 4.5, chloride is 98, CO2 is 29, BUN of 44, creatinine of 7.41, glucose is 79. White blood cell count 3.8, hemoglobin 10.2, hematocrit is 32.2, and platelet count is 169. ASSESSMENT: 1. This is a pleasant 28-year-old gentleman, who presents to the emergency room with severe headache, likely related to hypertensive urgency. His blood pressure at one time was as high as 207/134, and the plan was to place him on a Cardene drip. However, his pressure has since come down while he has been in the ER. He does not have any neurological deficits nor does he have any chest pain. He will be admitted to the [facility] for close monitoring for hypertensive urgency. We will restart his home medications with p.r.n. hydralazine and labetalol as needed. We will consult his liquefied petroleum gasfitter for help in adjusting and titrating his medications as needed. 2. Severe headache, likely related to #1. We will treat this symptomatically and hopefully with lowering of his blood pressure, the headache should resolve. 3. End-stage renal disease, on hemodialysis. We will consult his liquefied petroleum gasfitter for his maintenance hemodialysis. 4. Systemic lupus. This appears to be in remission, and we will continue Plaquenil. 5. Seizure disorder. Have Ativan p.r.n. available and place him on Keppra 500 mg daily. Job ID: [id number]
[2019-01-23 06:13] LABS: #Basophils 0.1 thou/uL (0.0-0.2); #Lymphocytes 0.3 thou/uL (1.20-3.40); #Monocytes 0.1 thou/uL (0.11-0.59); #Neutrophils 3.5 thou/uL (1.40-6.50); %Basophils 1.7 % (0.0-1.0); %Eosinophils 0.4 % (0.0-10.0); %Lymphocytes 6.5 % (21.0-51.0); %Monocytes 1.4 % (0.0-10.0); %Neutrophils 89.9 % (42.0-75.0); Hemoglobin 10.4 g/dL (14.0-18.0); Mean Corpuscular HGB CONC 31.7 g/dL (32.0-36.0); Mean Corpuscular Hemoglobin 26.7 pg (27.0-31.0); Mean Corpuscular Volume 84.3 fL (78.0-98.0); Mean Platelet Volume 9.1 fL (7.4-10.4); Platelet Count 185 thou/uL (130-400); RBC Distribution Width 14.4 % (11.5-14.5); Red Blood Cell (RBC) Count 3.89 mill/uL (4.70-6.10); White Blood Cell (WBC) Count 3.9 thou/uL (4.8-10.8)
[2019-01-23 06:36] LABS: Anion Gap 19 mmol/L (10-20); BUN (Urea Nitrogen) 53 mg/dL (8.9-20.6); Calc. Creatinine Clearance 11 mL/min (70-130); Calcium 9.6 mg/dL (7.8-10.44); Carbon Dioxide 25 mmol/L (22-29); Chloride 97 mmol/L (98-107); Estimated GFR-MDRD 7; Glucose 104 mg/dL (70-105); Sodium 135 mmol/L (136-145)
[2019-01-23] MEDS: hydrALAZINE 25 MG TAB PO SCH ×2 (08:40→20:44)
[2019-01-23] MEDS: Carvedilol 25 MG TAB PO SCH ×2 (08:40→17:19)
[2019-01-23] MEDS: Losartan 25 MG TAB PO SCH (08:41)
[2019-01-23] MEDS: NIFEdipine XL 60 MG TAB PO SCH (08:41)
[2019-01-23] MEDS: Famotidine 20 MG TAB PO SCH (08:41)
[2019-01-23] MEDS: Heparin 5,000 UNITS/ML VIAL SC SCH ×4 (08:42→22:14)
--- NOTE | 2019-01-23 10:18 | CON ---
DATE OF CONSULTATION: SERVICE: Renal Medicine. HISTORY OF PRESENT ILLNESS: Mr. Ewing is a 28-year-old male, who was admitted for severe headache with labile hypertension. A CAT scan of the head was done, which was essentially negative. Due to the poorly controlled blood pressure, the patient was admitted for further management. We are being consulted for his hemodialysis. He was noted to have a potassium of 6 this morning and for that reason, he has been scheduled for 2-hour dialysis treatment. He did undergo dialysis yesterday, but he did not finish the said treatment. REVIEW OF SYSTEMS: Positive for occasional leg edema. Positive for headache. No nausea. No vomiting. No abdominal pain. No fever or chills. No productive cough. Appetite and energy level are fair. No diarrhea. No constipation. No syncopal episode. MEDICATIONS: Currently on, 1. Fiorinal one tab q.4 p.r.n. 2. Coreg 25 mg p.o. b.i.d. 3. Catapres 0.1 mg q.4 p.r.n. 4. Pepcid 20 mg daily. 5. Heparin 5000 units subcu t.i.d. 6. Hydralazine 100 mg t.i.d. 7. Losartan 50 mg daily. 8. Procardia XL 60 mg once a day. 9. Zofran 4 mg sublingual p.r.n. PAST MEDICAL HISTORY: 1. 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 2. SLE. 3. Hypertension. PAST SURGICAL HISTORY: 1. Status post PD catheter placement. 2. Status post cuffed hemodialysis catheter placement. 3. Status post skin biopsy. 4. Status post thoracentesis for pleural effusion. 5. Status post laparoscopic appendectomy for perforated appendix. SOCIAL HISTORY: The patient lives with his girlfriend. Currently not working. No history of smoking. No IV drug abuse. Status post blood transfusion. Five siblings. ALLERGIES: NONE. TRAUMA: None. IMMUNIZATIONS: Up-to-date. HOSPITALIZATIONS: Please see past medical history. FAMILY HISTORY: Positive family history of ESRD. Father on dialysis. PHYSICAL EXAMINATION: VITAL SIGNS: Blood pressure is 173/116, heart rate 70, respiratory rate 12, and pulse ox 100%. GENERAL: Awake, alert, comfortable, not in distress. SKIN: Adequate turgor. HEENT: Pinkish conjunctivae. Anicteric sclerae. NECK: No neck mass. No carotid bruits. No JVD. CHEST: No deformities. LUNGS: Clear breath sounds. No wheezing. No crackles. HEART: Normal sinus rhythm. No murmur. No gallops. No rubs. ABDOMEN: Globular, soft, and nontender. No masses. Positive for PD catheter. EXTREMITIES: No edema. No deformities. LABORATORY DATA: Laboratories of January 23, 2019; white count 3.9, hemoglobin 10.4. Sodium 135, potassium 6, chloride 97, carbon dioxide 25, BUN 53, and creatinine 8.76. ASSESSMENT AND PLAN: 1. Hyperkalemia - we will do hemodialysis for 2 hours with fluid removal as tolerated. 2. Labile hypertension. Continue current BP medications. 3. End-stage renal disease - the patient is requesting to have a peritoneal dialysis catheter removed and as well as an arteriovenous fistula placed. We will consult Surgery. 4. Headache - secondary to a presumed migraine - CT scan reported as within normal. Agree with current management. Job ID: [id number] MTDD
--- NOTE | 2019-01-23 15:20 | ULT ---
BILATERAL UPPER EXTREMITY VENOUS DOPPLER ULTRASOUND FOR DIALYSIS ACCESS: Date: 01/23/19 HISTORY: End-stage renal disease. FINDINGS: RIGHT UPPER EXTREMITY: The right cephalic vein measures 1.4 mm in the proximal arm, 0.6 mm in the mid arm, 1.2 mm in the dis mable arm, 1.9 mm in the antecubital fossa, 1.3 mm in the proximal forearm, 2.4 mm in the mid forearm, and 2.4 mm in the distal forearm. The right basilic vein measures 4.4 mm in the proximal arm, 6.0 mm in the mid arm, 5.6 mm in the dist al arm, 4.4 mm in the antecubital fossa, 1.7 mm in the proximal forearm, 1.9 mm in the mid forearm, a nd 2.0 mm in the distal forearm. The right brachial artery measures 4.6 mm, radial artery measures 1.6 mm, and ulnar artery measures 3 .6 mm. LEFT UPPER EXTREMITY: The left cephalic vein measures 4.1 mm in the proximal arm, 2.6 mm in the mid arm, 2.3 mm in the dist al arm, 3.0 mm in the antecubital fossa, 1.9 mm in the proximal forearm, 2.3 mm in the mid forearm, a nd 1.4 mm in the distal forearm. The left basilic vein measures 6.1 mm in the proximal arm, 5.3 mm in the mid arm, 5.9 mm in the dista l arm, 2.3 mm in the antecubital fossa, 2.3 mm in the proximal forearm, 2.1 mm in the mid forearm, an d 2.6 mm in the distal forearm. The left brachial artery measures 4.7 mm, radial artery measures 2.1 mm, and ulnar artery measures 2. 7 mm. POS: OFF
[2019-01-23] MEDS ORDERED: CEFAZOLIN 2 GM in Premix Bag 1 BAG IVPB SCH (16:15)
[2019-01-23 16:16] LABS: HBSAg Index 0.37 S/CO (0-0.99); Hep B Surf Ag Non-Reactive S/CO (NonReactive)
--- NOTE | 2019-01-23 17:48 | HP ---
HISTORY OF PRESENT ILLNESS: Greg Ewing is a 28-year-old male with lupus. He is dialyzing using hemodialysis catheter that I placed on 07/19/2018. His peritoneal dialysis catheter is not working, has not been filtering adequately, although he has good filling and drainage. I have been asked by Dr. Causey to remove his peritoneal dialysis catheter and establish a fistula. Ultrasound vein mapping has been obtained in the past and repeated this hospitalization today. Right arm cephalic vein; 1.4, 0.6, 1.2, 1.9 mm at the antecubital fossa and 1.3 at proximal forearm, 2.4 at mid form, 2.4 at distal form. Right basilic vein; 4.4, 6, 5.6, 4, 1.7. Left upper extremity cephalic vein; 4.1, 2.6, 2.3, 3 mm at antecubital fossa. Plan is for a left arm fistula tomorrow. Risks and benefits of the procedure have been discussed. He consents. ALLERGIES: PHENERGAN. SOCIAL HISTORY: Tobacco, none. Alcohol, none. MEDICATIONS AT HOME: 1. Prednisone 40 mg a day. 2. Metronidazole 250 mg t.i.d. p.r.n. 3. Lomotil. 4. Plaquenil 200 daily. 5. Iron sulfate 325 daily. 6. Pepcid daily. 7. Bentyl p.r.n. 8. Cipro 250 daily. 9. Calcitriol 0.25 mcg p.m. 10. Calcium carbonate 200 mg p.o. t.i.d. PAST MEDICAL HISTORY: End-stage renal disease, on hemodialysis using hemodialysis catheter, inadequate peritoneal dialysis and needs a removal of the catheter. He has had an open appendectomy for ruptured appendix, knee replacement, thoracentesis, pleural effusions, peritoneal dialysis catheters placed and removed, currently has a one that needs to be removed, is now to have a fistula in the place. REVIEW OF SYSTEMS: Noncontributory. PHYSICAL EXAMINATION: VITAL SIGNS: Height 5 feet 10 inches, 133 pounds, 19 BMI, 98 degrees, pulse 67, and blood pressure 142/93. HEAD, EARS, EYES, NOSE, AND THROAT: Unremarkable. LUNGS: Clear to auscultation. CARDIAC: Regular rate and rhythm without murmur or gallop. ABDOMEN: Soft and nontender. EXTREMITIES: Unremarkable. ASSESSMENT: End-stage renal disease. PLAN: Placement of a left arm primary fistula with regional anesthesia tomorrow. N.p.o. after midnight. Job ID: [id number]
[2019-01-23] MEDS ORDERED: Calcium Carbonate 500 MG ChewTAB PO PRN (20:55)
--- NOTE | 2019-01-23 21:02 | PDOC.PN ---
- Subjective Encounter Start Date: 01/23/19 Encounter Start Time: 16:05 Subjective: f/u for ESRD on HD, hyperkalemia and HTN urgency. Currently receiving -: HD and feeling better. No CARBALLO, visual disturbance. - Objective Resuscitation Status - Order Detail: 01/23/19 00:33 Resuscitation Status Routine Resuscitation Status: FULL: Full Resuscitation MAR Reviewed: Yes Vital Signs & Weight: Vital Signs (12 hours) Temp BP 01/23/19 20:44 173/116 H 01/23/19 19:00 97.6 F 01/23/19 15:39 98.0 F 01/23/19 11:22 99.2 F Weight Weight 133 lb 3.2 oz Most Recent Monitor Data Heart Rate from ECG 67 NIBP 126/84 NIBP BP-Mean 98 Respiration from ECG 16 SpO2 100 I&O: 01/22/19 01/23/19 01/24/19 06:59 06:59 06:59 Intake Total 960 Output Total 300 Balance 660 Result Diagrams: 01/23/19 05:40 01/23/19 05:40 Additional Labs: Laboratory Tests 01/22/19 01/23/19 21:05 15:24 Hgb 10.2 L Neutrophils % 83.1 H Hep Bs Antigen Non-Reactive Radiology Reviewed by me: Yes (CT brain - no acute process) EKG Reviewed by me: Yes (Tele - SR) Phys Exam - Physical Examination Constitutional: NAD HEENT: PERRLA, sclera anicteric, oral pharynx no lesions Neck: no nodes, no JVD, supple, full ROM L upper chest with HD catheter in place Respiratory: no wheezing, no rales, no rhonchi, clear to auscultation bilateral S1, S2 Cardiovascular: RRR, no significant murmur, no rub, gallop Gastrointestinal: soft, non-tender, no distention, positive bowel sounds Musculoskeletal: no edema, pulses present Neurological: normal sensation, moves all 4 limbs Psychiatric: A&O x 3 Skin: normal turgor, cap refill <2 seconds Dx/Plan (1) Hypertensive urgency Code(s): I16.0 - HYPERTENSIVE URGENCY Status: Acute Comment: Improved with current HD, resume home BP regimen, monitor clinical response (2) Hyperkalemia Code(s): E87.5 - HYPERKALEMIA Status: Acute Comment: HD currently, serial K + monitoring, low-K+ diet (3) ESRD (end stage renal disease) on dialysis Code(s): N18.6 - END STAGE RENAL DISEASE; Z99.2 - DEPENDENCE ON RENAL DIALYSIS Status: Chronic Comment: HD currently, plan for AV fistula placement in am (4) SLE (systemic lupus erythematosus) Code(s): M32.9 - SYSTEMIC LUPUS ERYTHEMATOSUS, UNSPECIFIED Status: Chronic Comment: Likely etiology of ESRD, continue continue Plaquenil, Prednisone - Plan social professionals, out of bed/ambulate, DVT proph w/SCDs Stable overall -: Continue HD per Renal service -: Resume home BP regimen and titrate to clinical response -: AV fistula placement in am -: AM lab: BMP * .
[2019-01-23] MEDS: Calcitriol 0.25 MCG CAP PO SCH (22:13)
[2019-01-24 05:07] LABS: Anion Gap 16 mmol/L (10-20); BUN (Urea Nitrogen) 52 mg/dL (8.9-20.6); Calc. Creatinine Clearance 12 mL/min (70-130); Calcium 9.4 mg/dL (7.8-10.44); Carbon Dioxide 31 mmol/L (22-29); Chloride 98 mmol/L (98-107); Estimated GFR-MDRD 8; Glucose 97 mg/dL (70-105); Potassium 5.1 mmol/L (3.5-5.1); Sodium 140 mmol/L (136-145)
[2019-01-24] MEDS: cloNIDine 0.1 MG TAB PO PRN (09:30)
--- NOTE | 2019-01-24 09:52 | PRG ---
DATE OF SERVICE: 01/24/2019 SERVICE: Renal Medicine. SUBJECTIVE: Mr. Ewing is a 28-year-old male with ESRD from lupus nephritis. He is currently undergoing hemodialysis. I am at the bedside supervising his dialysis. There is a plan for AV fistula placement and removal of his PD catheter to be done by surgeon. No other complaints today. Blood pressure is much improved last night. OBJECTIVE: VITAL SIGNS: Blood pressure currently is 166/113 with a heart rate of 82, respiratory rate 6, and pulse ox 100%. GENERAL: The patient is awake, alert, comfortable, not in distress. SKIN: Adequate turgor. HEENT: He has pinkish conjunctivae. Anicteric sclerae. NECK: No neck mass. No carotid bruits. No JVD. CHEST: No deformities. LUNGS: Clear breath sounds. HEART: Normal sinus rhythm. No murmurs. No gallops. No rubs. ABDOMEN: Globular, soft, and nontender. Positive for PD catheter. EXTREMITIES: No edema. No deformities. MEDICATIONS: Medications of January 24, 2019, reviewed. LABORATORY DATA: Laboratories of January 23, 2019; white count 3.9, hemoglobin 10.4. Sodium 140, potassium 5.1, chloride 98, carbon dioxide 31, BUN 52, creatinine 8.08, and calcium 9.4. IMAGING DATA: CT scan of the head was essentially negative. ASSESSMENT AND PLAN: 1. End-stage renal disease. Continuing Tuesday, Tuesday, and Tuesday hemodialysis. Fluid removal only as tolerated. 2. Hypertension, still not optimal. We will add minoxidil at 5 mg tab at bedtime. An arteriovenous fistula will be placed for this patient. The peritoneal dialysis catheter will be removed by surgeon. Agree with current management. ADDENDUM: As previously mentioned, blood pressure is not in good control and minoxidil will be added. Job ID: [id number]
[2019-01-24] MEDS ORDERED: Propofol 500 MG/50 ML VIAL ONE (10:34)
[2019-01-24] MEDS ORDERED: Fentanyl 100 MCG/2 ML VIAL ONE ×2 (10:34→13:39)
[2019-01-24] MEDS ORDERED: Heparin 10,000 UNITS/ 10 ML VIAL ONE ×2 (11:11→15:21)
[2019-01-24] MEDS: Calcium Carbonate 500 MG ChewTAB PO SCH ×3 (11:17→16:32)
[2019-01-24] MEDS: Hydroxychloroquine Sulfate 200 MG TAB PO SCH (11:18)
[2019-01-24] MEDS: Saccharomyces boulardii 250 MG CAP PO SCH (11:18)
[2019-01-24] MEDS: hydrALAZINE 25 MG TAB PO SCH ×2 (11:18→20:04)
[2019-01-24] MEDS: NIFEdipine XL 60 MG TAB PO SCH (11:18)
[2019-01-24] MEDS: Losartan 25 MG TAB PO SCH (11:18)
[2019-01-24] MEDS: predniSONE 20 MG TAB PO SCH (11:19)
[2019-01-24] MEDS: Famotidine 20 MG TAB PO SCH (11:19)
[2019-01-24] MEDS: Carvedilol 25 MG TAB PO SCH ×2 (11:19→16:32)
[2019-01-24] MEDS: Heparin 5,000 UNITS/ML VIAL SC SCH ×2 (11:20→20:05)
[2019-01-24] MEDS: Minoxidil 2.5 MG TAB PO SCH (11:22)
[2019-01-24] MEDS ORDERED: Lidocaine 2% PF 5 ML VIAL ONE ×2 (12:41→13:24)
[2019-01-24] MEDS ORDERED: Protamine Sulfate 50 MG/5 ML VIAL ONE (12:41)
[2019-01-24] MEDS ORDERED: Bupivacaine HCl 0.5%/Epinephrine 1:200,000/PF 30 ml Vial ONE (12:41)
[2019-01-24] MEDS ORDERED: Heparin 5,000 UNITS/ML VIAL ONE (12:48)
[2019-01-24] MEDS ORDERED: methylPREDNISolone Sod Succ/PF 125 MG/2 ML VIAL ONE (13:24)
[2019-01-24] MEDS ORDERED: Hydrocortisone Sod Succ/PF 100 mg/2 ml Vial ONE (13:27)
[2019-01-24] MEDS ORDERED: Acetaminophen 500 MG TAB PO PRN (15:05)
[2019-01-24] MEDS ORDERED: traMADol HCl 50 MG TAB PO PRN ×2 (15:05)
[2019-01-24] MEDS ORDERED: HYDROmorphone 2 MG/ML VIAL SLOW IVP PRN (15:20)
[2019-01-24] MEDS ORDERED: Ondansetron HCl/PF 4 MG/2 ML Vial IVP PRN (15:20)
--- NOTE | 2019-01-24 18:05 | OP ---
DATE OF PROCEDURE: 01/24/2019 PREOPERATIVE DIAGNOSIS: Lupus, end-stage renal disease, inadequate peritoneal dialysis due lupus, mechanically functioning well. POSTOPERATIVE DIAGNOSIS: Lupus, end-stage renal disease, inadequate peritoneal dialysis due lupus, mechanically functioning well. PROCEDURES PERFORMED: Left arm primary fistula, perforating branch antecubital vein inflow, proximal radial artery outflow, primary cephalic vein, secondary basilic vein, retrograde antecubital vein preserved, 4 mm coronary dilator outflow calibration without restriction, removal of peritoneal dialysis catheter. ANESTHESIA: General, local with 0.5% Marcaine with epinephrine 30 mL mixed with 2% Xylocaine 10 mL. DESCRIPTION OF PROCEDURE: The patient was taken to the operating room, where under general anesthesia, left upper extremity and abdomen and peritoneal dialysis catheter prepared with ChloraPrep and draped in routine fashion. Local anesthetic was infiltrated into the skin and subcutaneous tissue about the operative site. The proximal volar forearm incision made longitudinally beneath the antecubital fossa, carried down to skin and subcutaneous tissue. Antecubital vein dissected free and the bifurcation had a good size basilic vein noted. Perforating branch dissected free. Branches were divided between clips, spatulated over branch points and interrogated with coronary dilators, passing coronary dilators from 2 mm to 4 mm dilator out the cephalic vein outflow without restriction. The patient given 6000 units of heparin intravenously. Vein was flushed with heparinized saline solution. Atraumatic bulldog clamp applied. Brachial radial ulnar artery dissected free and vascular clamps applied and longitudinal arteriotomy was made in the proximal radial artery for 2.5 cm anastomosis between the spatulated antecubital vein, completing the anastomosis with continuous suture of 6-0 Prolene gaining hemostasis with 4-0 silk ties and 6-0 Prolene, released the vascular clamps, noting good outflow in the cephalic vein fistula interrogated by Doppler. The patient given 50 mg of protamine intravenously by Anesthesia. Subcutaneous tissue was approximated with 3-0 Monocryl, skin with subdermal 4-0 Monocryl, and [place] glue applied. The peritoneal dialysis catheter exiting the left lower quadrant was dissected free, removing both cuffs and catheter and dry dressing applied. The patient tolerated the procedure well without complications. Job ID: [id number]
--- NOTE | 2019-01-24 18:35 | PDOC.PN ---
- Subjective Encounter Start Date: 01/24/19 Encounter Start Time: 17:40 Subjective: f/u for ESRD HD, s/p LUE AV fistula placement today. Feels lethargic -: after the procedure. - Objective Resuscitation Status - Order Detail: 01/23/19 00:33 Resuscitation Status Routine Resuscitation Status: FULL: Full Resuscitation MAR Reviewed: Yes Vital Signs & Weight: Vital Signs (12 hours) Temp BP Pulse Ox 01/24/19 15:50 97.8 F 01/24/19 11:18 165/113 H 01/24/19 10:44 98.7 F 01/24/19 09:30 186/121 H 01/24/19 07:36 100 01/24/19 07:11 99.0 F Weight Weight 133 lb 3.2 oz Most Recent Monitor Data Heart Rate from ECG 65 NIBP 127/86 NIBP BP-Mean 99 Respiration from ECG 16 SpO2 99 I&O: 01/23/19 01/24/19 01/25/19 06:59 06:59 06:59 Intake Total 2160 Output Total 300 Balance 1860 Result Diagrams: 01/23/19 05:40 01/24/19 04:31 Additional Labs: Laboratory Tests 01/22/19 01/23/19 01/23/19 21:05 05:40 15:24 WBC 3.8 L Hgb 10.2 L Neutrophils % 83.1 H Potassium 6.0 H BUN 53 H Creatinine 8.76 H Hep Bs Antigen Non-Reactive EKG Reviewed by me: Yes (Tele - SR) Phys Exam - Physical Examination Constitutional: NAD HEENT: PERRLA, sclera anicteric, oral pharynx no lesions Neck: no nodes, no JVD, supple, full ROM Respiratory: no wheezing, no rales, no rhonchi, clear to auscultation bilateral S1, S2 Cardiovascular: RRR, no significant murmur, no rub, gallop Gastrointestinal: soft, non-tender, no distention, positive bowel sounds LUE with post-surgical changes in antecubital fossa with AV fistula Musculoskeletal: pulses present Neurological: normal sensation, moves all 4 limbs Psychiatric: A&O x 3 Skin: normal turgor, cap refill <2 seconds Dx/Plan (1) Hypertensive urgency Code(s): I16.0 - HYPERTENSIVE URGENCY Status: Acute Comment: Improved with current HD, resume home BP regimen, monitor clinical response (2) Hyperkalemia Code(s): E87.5 - HYPERKALEMIA Status: Acute Comment: HD currently, serial K + monitoring, low-K+ diet (3) ESRD (end stage renal disease) on dialysis Code(s): N18.6 - END STAGE RENAL DISEASE; Z99.2 - DEPENDENCE ON RENAL DIALYSIS Status: Chronic Comment: HD currently, plan for AV fistula placement in am (4) SLE (systemic lupus erythematosus) Code(s): M32.9 - SYSTEMIC LUPUS ERYTHEMATOSUS, UNSPECIFIED Status: Chronic Comment: Likely etiology of ESRD, continue continue Plaquenil, Prednisone - Plan psychiatric social worker supervisor, out of bed/ambulate, DVT proph w/SCDs Stable currently -: Pain control for LUE AV fistula -: HD per Renal service -: OOB/ambulate -: Plan on d/c home in am * .
[2019-01-24] MEDS: Calcitriol 0.25 MCG CAP PO SCH (20:04)
[2019-01-24] MEDS ORDERED: Ferrous Sulfate 325 MG TAB PO SCH (21:00)
[2019-01-25 07:12] VITALS: TEMP 98.8
[2019-01-25] MEDS: Famotidine 20 MG TAB PO SCH (07:38)
[2019-01-25] MEDS: Heparin 5,000 UNITS/ML VIAL SC SCH (07:38)
[2019-01-25] MEDS: hydrALAZINE 25 MG TAB PO SCH (07:39)
[2019-01-25] MEDS: predniSONE 20 MG TAB PO SCH (07:39)
[2019-01-25] MEDS: Minoxidil 2.5 MG TAB PO SCH (07:39)
[2019-01-25] MEDS: NIFEdipine XL 60 MG TAB PO SCH (07:40)
[2019-01-25] MEDS: Carvedilol 25 MG TAB PO SCH (07:40)
[2019-01-25] MEDS: Calcium Carbonate 500 MG ChewTAB PO SCH (07:40)
[2019-01-25] MEDS: Losartan 25 MG TAB PO SCH (07:40)
[2019-01-25] MEDS: Saccharomyces boulardii 250 MG CAP PO SCH (07:40)
[2019-01-25] MEDS: Hydroxychloroquine Sulfate 200 MG TAB PO SCH (07:41)
[2019-01-25 07:45] VITALS: BP 146/97
--- NOTE | 2019-01-25 09:22 | PRG ---
DATE OF SERVICE: 01/25/2019 SERVICE: Renal Medicine. SUBJECTIVE: Mr. Ewing is a 28-year-old male with ESRD from lupus nephritis, and we are following him up for his maintenance hemodialysis. He underwent dialysis yesterday without any difficulty. He also was admitted due to labile hypertension. Yesterday, I decided to start him on minoxidil at 5 mg tablet once at bedtime. His blood pressure is actually slightly better this morning. He was also complaining of a headache, which CT scan showed negative findings. The possibility of migraine with him remains. In the interim, we have asked the surgeon to remove the PD catheter. He underwent surgery yesterday for PD catheter removal as well as placement of an AV fistula. This morning, he is feeling better. He denies any headache, chest pain, or shortness of breath. OBJECTIVE: VITAL SIGNS: Blood pressure is 140/97 with a heart rate of 86, respiratory rate 20, and pulse ox is 100%. GENERAL: Awake, alert, comfortable, not in distress. SKIN: Adequate turgor. HEENT: Pinkish conjunctivae. Anicteric sclerae. NECK: No neck mass. No carotid bruits. No JVD. CHEST: No deformities. LUNGS: Clear breath sounds. No wheezing. No crackles. HEART: Normal sinus rhythm. No murmur. No gallops. No rubs. ABDOMEN: Globular, soft, and nontender. No masses. EXTREMITIES: No edema. He has a left upper extremity AV fistula-positive for bruit. MEDICATIONS: Medications of 01/25/2019 was reviewed. LABORATORY DATA: Laboratories of 01/23/2019; white count 3.9, hemoglobin 10.4, sodium 140, potassium 5.1, chloride 98, carbon dioxide 31, BUN 52, creatinine 8.08, calcium 9.4, and glucose 97. ASSESSMENT AND PLAN: 1. Labile hypertension, much improved. Continue current antihypertensive regimen. I did instruct the patient regarding compliance with BP medications. 2. Headache-? migraine, resolved. CT scan of the brain was negative. 3. End-stage renal disease, stable, tolerating current hemodialysis regimen. There is no indication for any emergent hemodialysis today with this patient. Please note that he has a new left AV fistula. In addition, the PD catheter has been pulled out. Agree with plan of discharge. Job ID: [id number]
--- NOTE | 2019-01-25 09:55 | DIS ---
DATE OF ADMISSION: 01/23/2019 DATE OF DISCHARGE: 01/25/2019 DISCHARGE DIAGNOSES: 1. Hypertensive urgency, resolved. 2. Hyperkalemia secondary to end-stage renal disease, resolved. 3. End-stage renal disease with hemodialysis. 4. Systemic lupus erythematosus. 5. Status post left upper extremity arteriovenous fistula placement. 6. Status post peritoneal dialysis catheter removal. CONSULTATIONS: 1. Dr. Parr with General Surgery Service. 2. Dr. Causey with Nephrology Service. PERTINENT LABORATORY AND X-RAY FINDINGS: Creatinine ranged between 7.41 to 8.76. Estimated GFR ranged between 7 to 9. CBC showed a white blood cell count ranging between 3.8 to 3.9, hemoglobin ranged between 10.[address] of the brain without contrast dated 01/22/2019, showed no acute intracranial process. HOSPITAL COURSE: The patient was initially admitted after presenting with hypertensive urgency with associated severe headache with initial blood pressure in the upper 200 systolic. The patient was initially given hydralazine and labetalol with improvement in overall blood pressure trend. Initial plans were to initiate Cardene infusion. However, the blood pressure responded to intermittent doses of hydralazine and labetalol. The patient was noted with mild hyperkalemia in the context of end-stage renal disease, undergoing hemodialysis. The patient underwent left upper extremity AV fistula placement in preparation for long-term maintenance hemodialysis. The patient continued to receive hemodialysis during the hospital course and tolerated without complication. Serial blood pressure monitoring through the remainder of the hospital course showed stable values. The patient also underwent subsequent removal of his previous peritoneal dialysis catheter without complication on 01/24/2019. Overall, the patient did remain clinically stable during the hospital course. I have examined the patient at the time of discharge and discussed followup instructions. The patient verbalizes understanding and agreement ready for discharge on 01/25/2019. DISCHARGE MEDICATIONS: 1. Calcitriol 0.25 mcg p.o. at bedtime. 2. Calcium carbonate 200 mg p.o. t.i.d. 3. Feosol 325 mg p.o. at bedtime. 4. Plaquenil 200 mg p.o. daily. 5. Coreg 25 mg p.o. b.i.d. 6. Hydralazine 100 mg p.o. b.i.d. 7. Losartan 50 mg p.o. daily. 8. Minoxidil 5 mg p.o. daily. 9. Procardia XL 60 mg p.o. daily. 10. Prednisone 40 mg p.o. daily. 11. Florastor 250 mg p.o. daily. FOLLOWUP: The patient may follow up with Dr. Judi Estrada, within 7 days of discharge. The patient will follow up with Dr. Causey with Nephrology Service with hemodialysis 3 times per week. The patient will follow up with Dr. Parr in 3 to 4 weeks. CONDITION ON DISCHARGE: Stable. ACTIVITY: Ad osiel. DIET: Renal. CODE STATUS: Full. DISPOSITION: Home on 01/25/2019. TIME SPENT: Total time preparing and coordinating discharge is 34 minutes. Job ID: [id number]
[2019-01-31] MEDS ORDERED: predniSONE 20 MG TAB PO SCH (08:00)
[2019-02-08] MEDS ORDERED: predniSONE 20 MG TAB PO SCH (08:00)
== END 2019-01-25 08:45 | disposition home or self-care (01) | DRG 264 ==
LOC: ERS 19:15 → IMCU/EMU 01-23 01:40
PROVIDERS: ADMIT Internal Medicine; ATTEND Internal Medicine
PROC: 031C0ZF Bypass Left Radial Artery to Lower Arm Vein, Open Approach (ICD-10-PCS; principal; 2019-01-24)
PROC: 0WPGX3Z Removal of Infusion Device from Peritoneal Cavity, External Approach (ICD-10-PCS; 2019-01-24)
PROC: 5A1D70Z Performance of Urinary Filtration, Intermittent, Less than 6 Hours Per Day (ICD-10-PCS; 2019-01-24)
DX: I16.0 Hypertensive urgency (principal); N18.6 End stage renal disease; T82.898A Other specified complication of vascular prosthetic devices, implants and grafts, initial encounter; M32.9 Systemic lupus erythematosus, unspecified; G40.909 Epilepsy, unspecified, not intractable, without status epilepticus; E87.5 Hyperkalemia; Z99.2 Dependence on renal dialysis; Z90.49 Acquired absence of other specified parts of digestive tract; Z98.890 Other specified postprocedural states; Z88.8 Allergy status to other drugs, medicaments and biological substances; Z79.899 Other long term (current) drug therapy; Y83.8 Other surgical procedures as the cause of abnormal reaction of the patient, or of later complication, without mention of misadventure at the time of the procedure
CPT/HCPCS: 36415; 70450; 80048; 80053; 85025; 85652; 86140; 87340; 93970; 96365; 96375; G0365; J0360; J0670; J1200; J1642; J1644; J1720; J2001; J2704; J2720; J2930; J3010; J7050

== ENCOUNTER 2019-02-09 09:04 | Inpatient (IN) | payer OTHER ==
--- NOTE | 2019-02-09 09:40 | RAD ---
CHEST 2 VIEWS: HISTORY: Cough. COMPARISON: Radiograph of 07/19/2018. FINDINGS: A large right pleural effusion with peripheral interstitial thickening, likely chronic effusion. A s mall to moderate left effusion. Mild pulmonary edema. Dialysis catheter is similar. Heart size is mildly enlarged. IMPRESSION: Large right and moderate left pleural effusion with mild volume overload. POS: [facility]
[2019-02-09 09:51] LABS: #Lymphocytes 0.6 thou/uL (1.20-3.40); #Monocytes 0.3 thou/uL (0.11-0.59); #Neutrophils 4.5 thou/uL (1.40-6.50); %Basophils 0.3 % (0.0-1.0); %Eosinophils 0.7 % (0.0-10.0); %Lymphocytes 10.1 % (21.0-51.0); %Monocytes 5.5 % (0.0-10.0); %Neutrophils 83.5 % (42.0-75.0); Hemoglobin 10.6 g/dL (14.0-18.0); Mean Corpuscular HGB CONC 31.1 g/dL (32.0-36.0); Mean Corpuscular Hemoglobin 27.5 pg (27.0-31.0); Mean Corpuscular Volume 88.4 fL (78.0-98.0); Mean Platelet Volume 8.3 fL (7.4-10.4); Platelet Count 163 thou/uL (130-400); RBC Distribution Width 16.6 % (11.5-14.5); Red Blood Cell (RBC) Count 3.86 mill/uL (4.70-6.10); White Blood Cell (WBC) Count 5.4 thou/uL (4.8-10.8)
[2019-02-09 10:08] LABS: ALT (SGPT) 7 U/L (8-55); AST (SGOT) 13 U/L (5-34); Albumin 3.8 g/dL (3.5-5.0); Alkaline Phosphatase 56 U/L (40-150); Anion Gap 20 mmol/L (10-20); BUN (Urea Nitrogen) 60 mg/dL (8.9-20.6); Bilirubin, Total 0.5 mg/dL (0.2-1.2); Calc. Creatinine Clearance 0 mL/min (70-130); Carbon Dioxide 24 mmol/L (22-29); Chloride 98 mmol/L (98-107); Estimated GFR-MDRD 6; Globulin 3.7 g/dL (2.4-3.5); Glucose 79 mg/dL (70-105); Lipase 25 U/L (8-78); Potassium 4.8 mmol/L (3.5-5.1); Protein, Total 7.5 g/dL (6.0-8.3); Sodium 137 mmol/L (136-145)
[2019-02-09] MEDS ORDERED: Heparin 1,000 UNITS/ML VIAL ONE (11:11)
[2019-02-09] MEDS ORDERED: Acetaminophen 325 MG TAB PO PRN (13:28)
[2019-02-09] MEDS ORDERED: Ondansetron PF 4 MG/2 ML Vial IVP PRN (13:28)
--- NOTE | 2019-02-09 17:24 | HP ---
CHIEF COMPLAINT: Shortness of breath and right lower back pain. HISTORY OF PRESENT ILLNESS: The patient is a 28-year-old male with past medical history significant for end-stage renal disease secondary to lupus nephritis, currently on hemodialysis, hypertension, and systemic lupus erythematosus, who presented to the hospital today with a 2-day history of worsening shortness of breath. The patient states for about the past two weeks, he has been experiencing some back pain located on the right lower side of his back. The pain is exacerbated by taking deep breaths. It is worse if he sleeps on his right side , and also hurts with movement. For the past two days, the patient has been noticing associated shortness of breath. He reports orthopnea as well as dyspnea on exertion. He states that he previously has had "fluid in his lungs" that had to be drained, and his symptoms were similar to the way he feels now. He denies any fever or chills. He has had no nausea or vomiting. He denies any sick contacts. Chest x-ray performed in the ER showed a large right pleural effusion with peripheral interstitial thickening, which Radiology believed was likely chronic , and a moderate left pleural effusion. Dr. Causey was consulted from the ER, and the patient was taken for his regularly scheduled dialysis, which is performed Tuesday, Tuesday, and Tuesday. REVIEW OF SYSTEMS: A 12-point review of systems performed and is negative except that stated above. The patient specifically denies any blood in his urine or stool; fever, chills, sick contacts. He denies any chest pain or palpitations. PAST MEDICAL HISTORY: Significant for end-stage renal disease secondary to lupus nephritis, now on hemodialysis. He was previously on peritoneal dialysis for 4 years, and recently had his peritoneal dialysis catheter removed. He also has a history of hypertension, as well as anemia of renal disease. He has a history of one seizure that occurred in August 2018, as well as chronic headaches. PAST SURGICAL HISTORY: Status post PD catheter placement and removal. History of tunneled hemodialysis catheter placed to the left chest, which is still present. History of kidney biopsy, thoracentesis, and appendectomy. ALLERGIES: PROMETHAZINE. SOCIAL HISTORY: He is a nonsmoker and nondrinker. He denies any illicit drug use. FAMILY HISTORY: Positive for lupus in his grandmother. Positive for diabetes and kidney failure in his father. CURRENT MEDICATIONS: 1. Calcitriol 0.25 mcg cap p.o. q.p.m. 2. Calcium carbonate 200 mg p.o. t.i.d. with meals. 3. Bentyl 10 mg cap 10 mg p.o. q.p.m. 4. Ferrous sulfate 325 mg tablet one tablet p.o. q.p.m. 5. Plaquenil 200 mg tab one tab daily. 6. Carvedilol 25 mg tab p.o. b.i.d. with meals. 7. Hydralazine 100 mg p.o. b.i.d. 8. Losartan 50 mg tab p.o. daily. 9. Minoxidil 5 mg tab p.o. daily. 10. Nifedipine extended release 60 mg one tab p.o. daily. PHYSICAL EXAMINATION: VITAL SIGNS: Blood pressure at the time of my assessment, 169/113, pulse is 87, respirations 14, temperature 97.7, O2 saturation is 95% on room air. GENERAL: The patient is a male, who appears his stated age, resting in the ER. He is in no respiratory distress. HEENT: Head; atraumatic, normocephalic. Mucous membranes are moist. Extraocular movements are intact. NECK: No lymphadenopathy. Trachea is midline. No JVD. No carotid bruits. CV: S1 and S2. Regular rate and rhythm. No appreciable murmurs, rubs, or gallops. LUNGS: Regular respiratory rate and pattern, faint crackles noted, decreased breath sounds on the right. ABDOMEN: The patient's abdomen is soft, nontender with positive bowel sounds. He does have a piece of gauze present in the site of his previous peritoneal dialysis catheter, and was removed. EXTREMITIES: Has no edema. +2 DP pulses bilaterally. MUSCULOSKELETAL: No joint effusions. SKIN: Warm and dry. No rashes. He does have a tunneled dialysis catheter in the left chest, and AV fistula in the left arm. LABORATORY DATA: Hemoglobin 10.6, white blood cell count 5.4, hematocrit 34.1, platelets are 163. Sodium 137, potassium 4.8, chloride 98, carbon dioxide 24, anion gap is 20, BUN is 60, creatinine 11.02. AST 13, ALT 7, bilirubin 0.5, alkaline phosphatase 56, serum total protein 7.5, lipase is 25. IMAGING: Chest x-ray, as outlined in the HPI, shows bilateral pleural effusions , right greater than left. ASSESSMENT: 1. Shortness of breath secondary to volume overload with large right pleural effusion which appears to be symptomatic. 2. Back pain secondary to pleurisy/pleuritic pain from above. 3. End-stage renal disease secondary to lupus nephritis, currently on hemodialysis, previously on peritoneal dialysis for 4+ years, now with mature AV fistula. 4. Systemic lupus erythematosus. 5. Hypertension. 6. History of migraines. 7. Anemia of chronic disease. PLAN: Dr. Causey has been consulted and the patient will proceed with dialysis to be formed today. Given his symptoms, we will also consult Pulmonology for possible consideration of therapeutic thoracentesis if deemed appropriate. We will continue his antihypertensive regimen as well as a renal diet. Given the patient's multiple comorbidities and symptoms, he does meet inpatient criteria. Further recommendations will be based on hospital course. Job ID: [id number] MTDD
[2019-02-09] MEDS: Carvedilol 25 MG TAB PO SCH (18:13)
[2019-02-09] MEDS: hydrALAZINE 25 MG TAB PO SCH (20:21)
[2019-02-09] MEDS: levETIRAcetam 500 MG TAB PO SCH (20:21)
[2019-02-09] MEDS: Ferrous Sulfate 325 MG TAB PO SCH (20:21)
[2019-02-09] MEDS: Dicyclomine 10 MG CAP PO SCH (20:22)
[2019-02-09] MEDS: Calcium Carbonate 500 MG ChewTAB PO PRN (20:22)
[2019-02-09] MEDS: Famotidine 20 MG TAB PO SCH (20:22)
--- NOTE | 2019-02-10 01:44 | CON ---
DATE OF CONSULTATION: HISTORY OF PRESENT ILLNESS: Mr. Ewing is a 28-year-old male with ESRD from lupus nephritis and admitted for shortness of breath. Evaluation shows he has bilateral pleural effusion with the right greater than the left. In addition, he has some degree of CHF. He is now undergoing hemodialysis and I am at the bedside supervising dialysis. We are maxing out fluid removal. Consideration thoracentesis is being made. REVIEW OF SYSTEMS: No chest pain, positive for shortness of breath. No nausea. No vomiting. No diarrhea. No constipation. No productive cough. No diarrhea. No fever or chills. No hematochezia. No melena. No hematemesis. No dysuria. Appetite and energy level are fair. Occasional joint pains. Occasional headache. No abdominal pain. HOME MEDICATIONS: Includes the followin. Prednisone 40 mg q.a.m. 2. Hydralazine 100 mg p.o. b.i.d. 3. Florastor 250 mg daily. 4. Nifedipine 60 mg daily. 5. Minoxidil 5 mg daily. 6. Losartan 50 mg daily. 7. Plaquenil 200 mg daily. 8. Bentyl 10 mg q.p.m. p.r.n. 9. Ferrous sulfate 325 mg q.p.m. 10. Calcium carbonate 200 mg p.o. t.i.d. Calcitriol 0.25 mcg tablet daily. PAST MEDICAL HISTORY: 1. 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 2. SLE. 3. Hypertension status post CHF. PAST SURGICAL HISTORY: Status post AV fistula placement, status post PD catheter placement with subsequent removal, status post cuffed dialysis catheter placement, status post thoracentesis for pleural effusion, status post skin biopsy, status post laparoscopic appendectomy for perforated appendix. SOCIAL HISTORY: The patient has a live-in girlfriend. Lives in [place]. Currently not working, no history of smoking, no IV drug abuse, status post multiple blood transfusion, 5 siblings. No alcohol. ALLERGIES: NONE. TRAUMA: None. IMMUNIZATION: Up-to-date. HOSPITALIZATIONS: Please see past medical history. FAMILY HISTORY: Positive family history of ESRD-father was on dialysis. PHYSICAL EXAMINATION: VITAL SIGNS: Blood pressure 183/112, heart rate 80. GENERAL: Awake, alert, comfortable, not in distress. SKIN: Adequate turgor. HEENT: Slightly pale conjunctivae. Anicteric sclerae. NECK: No neck mass. No carotid bruits. No JVD. CHEST: No deformities. LUNGS: Decreased breath sounds. HEART: Normal sinus rhythm. No murmurs, gallops, or rubs. ABDOMEN: Globular, soft, nontender. No masses. EXTREMITIES: No edema, no deformities. LABORATORY DATA: February 09, 2019; white count 5.4, hemoglobin 10.6. Sodium 137, potassium 4.8, chloride 98, carbon dioxide 24, BUN 60, creatinine 11.02, calcium 10, glucose 79, AST 13, ALT 7. IMAGING: Chest x-ray of February 09, 2019, shows bilateral pleural effusion, right is large and left is moderate. ASSESSMENT/PLAN: 1. Large right pleural effusion. Consider thoracentesis. Consider referring to Radiology. 2. End-stage renal disease, stable. We will continue current hemodialysis regimen. We will do another repeat dialysis tomorrow for fluid removal. There will be some difficulty in removing this large pleural effusion. For that reason, I would recommend considering thoracentesis. 3. Hypertension, continue current blood pressure medications. 4. Systemic lupus erythematosus, currently on prednisone and Plaquenil. Job ID: [id number]
[2019-02-10] MEDS ORDERED: hydrALAZINE 20 MG/ML VIAL SLOW IVP SCH (04:45)
[2019-02-10 07:02] LABS: Anion Gap 16 mmol/L (10-20); BUN (Urea Nitrogen) 48 mg/dL (8.9-20.6); Calc. Creatinine Clearance 12 mL/min (70-130); Calcium 9.3 mg/dL (7.8-10.44); Carbon Dioxide 26 mmol/L (22-29); Chloride 98 mmol/L (98-107); Estimated GFR-MDRD 8; Glucose 82 mg/dL (70-105); Potassium 4.8 mmol/L (3.5-5.1); Sodium 135 mmol/L (136-145)
[2019-02-10] MEDS ORDERED: predniSONE 20 MG TAB PO SCH (08:00)
[2019-02-10 08:41] LABS: #Eosinphils 0.1 thou/uL (0.0-0.7); #Lymphocytes 0.6 thou/uL (1.20-3.40); #Monocytes 0.4 thou/uL (0.11-0.59); %Basophils 0.7 % (0.0-1.0); %Eosinophils 1.3 % (0.0-10.0); %Lymphocytes 14.9 % (21.0-51.0); %Monocytes 8.9 % (0.0-10.0); %Neutrophils 74.3 % (42.0-75.0); Mean Corpuscular HGB CONC 31.2 g/dL (32.0-36.0); Mean Corpuscular Hemoglobin 27.7 pg (27.0-31.0); Mean Corpuscular Volume 88.8 fL (78.0-98.0); Mean Platelet Volume 8.6 fL (7.4-10.4); Platelet Count 162 thou/uL (130-400); RBC Distribution Width 16.6 % (11.5-14.5); Red Blood Cell (RBC) Count 3.61 mill/uL (4.70-6.10); White Blood Cell (WBC) Count 4.1 thou/uL (4.8-10.8)
--- NOTE | 2019-02-10 10:29 | PDOC.PN ---
- Subjective Encounter Start Date: 02/10/19 Encounter Start Time: 09:40 -: old records requested/rev Patient seen and examined. No new complaints. No overnight events - Objective Resuscitation Status - Order Detail: 02/09/19 13:28 Resuscitation Status Routine Co-Sign Provider: Resuscitation Status: FULL: Full Resuscitation MAR Reviewed: Yes Vital Signs & Weight: Vital Signs (12 hours) Temp Pulse Resp BP BP Pulse Ox 02/10/19 05:18 165/94 H 02/10/19 04:47 85 171/113 H 02/10/19 04:22 97.8 F 85 18 171/113 H 94 L 02/10/19 00:46 98 F 86 18 137/92 H 94 L Weight Weight 139 lb 15.896 oz Result Diagrams: 02/10/19 06:09 02/10/19 06:09 Radiology Reviewed by me: Yes Phys Exam - Physical Examination Constitutional: NAD HEENT: PERRLA, moist MMs, sclera anicteric Neck: no JVD, supple Respiratory: no wheezing, no rales, no rhonchi air entry reduced both base Cardiovascular: RRR, no significant murmur, no rub Gastrointestinal: soft, non-tender, no distention, positive bowel sounds Musculoskeletal: no edema, pulses present Neurological: non-focal, normal sensation Lymphatic: no nodes Psychiatric: normal affect, A&O x 3 Skin: no rash, normal turgor Dx/Plan (1) Pleural effusion Code(s): J90 - PLEURAL EFFUSION, NOT ELSEWHERE CLASSIFIED Status: Acute (2) Anemia of renal disease Code(s): D63.1 - ANEMIA IN CHRONIC KIDNEY DISEASE Status: Chronic (3) ESRD (end stage renal disease) on dialysis Code(s): N18.6 - END STAGE RENAL DISEASE; Z99.2 - DEPENDENCE ON RENAL DIALYSIS Status: Chronic Comment: (4) Hypoalbuminemia Code(s): E88.09 - OTH DISORDERS OF PLASMA-PROTEIN METABOLISM, NEC Status: Chronic (5) SLE (systemic lupus erythematosus) Code(s): M32.9 - SYSTEMIC LUPUS ERYTHEMATOSUS, UNSPECIFIED Status: Chronic Comment: Likely etiology of ESRD, continue continue Plaquenil, Prednisone (6) Secondary hyperparathyroidism of renal origin Code(s): N25.81 - SECONDARY HYPERPARATHYROIDISM OF RENAL ORIGIN Status: Chronic - Plan cont current plan of care, plan discussed w/ family * continue HD as per nephrology * pulmonary consulted for pleural effusion * medication reviewed as below * symptomatic treatment. Review of Systems - Review of Systems ENT: negative: Ear Pain, Ear Discharge, Nose Pain, Nose Discharge, Nose Congestion, Mouth Pain, Mouth Swelling, Throat Pain, Throat Swelling, Other Respiratory: negative: Cough, Dry, Shortness of Breath, Hemoptysis, SOB with Excertion, Pleuritic Pain, Sputum, Wheezing Cardiovascular: negative: chest pain, palpitations, orthopnea, paroxysmal nocturnal dyspnea, edema, light headedness, other Gastrointestinal: negative: Nausea, Vomiting, Abdominal Pain, Diarrhea, Constipation, Melena, Hematochezia, Other Genitourinary: negative: Dysuria, Frequency, Incontinence, Hematuria, Retention , Other Musculoskeletal: negative: Neck Pain, Shoulder Pain, Arm Pain, Back Pain, Hand Pain, Leg Pain, Foot Pain, Other - Medications/Allergies Allergies/Adverse Reactions: Allergies Allergy/AdvReac Type Severity Reaction Status Date / Time promethazine [From Phenergan] Allergy Verified 01/23/19 01:45 Medications: Current Medications Acetaminophen (Tylenol) 650 mg PO Q4H PRN PRN Reason: Headache/Fever/Mild Pain (1-3) Calcium Carbonate (Tums) 500 mg PO QID PRN PRN Reason: Indigestion Last Admin: 02/09/19 20:22 Dose: 500 mg Carvedilol (Coreg) 25 mg PO BID-[facility] Last Admin: 02/09/19 18:13 Dose: 25 mg Dicyclomine HCl (Bentyl) 10 mg PO QPM [facility] Last Admin: 02/09/19 20:22 Dose: 10 mg Famotidine (Pepcid) 20 mg PO QPM [facility] Last Admin: 02/09/19 20:22 Dose: 20 mg Ferrous Sulfate (Feosol) 325 mg PO QPM [facility] Last Admin: 02/09/19 20:21 Dose: 325 mg Hydralazine HCl (Apresoline) 100 mg PO BID [facility] Last Admin: 02/09/19 20:21 Dose: 100 mg Hydroxychloroquine Sulfate (Plaquenil) 200 mg PO DAILY [facility] Levetiracetam (Keppra) 500 mg PO QPM [facility] Last Admin: 02/09/19 20:21 Dose: 500 mg Losartan Potassium (Cozaar) 50 mg PO DAILY [facility] Minoxidil (Minoxidil) 5 mg PO DAILY [facility] Nifedipine (Procardia Xl) 60 mg PO DAILY [facility] Ondansetron HCl (Zofran) 4 mg IVP Q6H PRN PRN Reason: Nausea/Vomiting
--- NOTE | 2019-02-10 11:49 | PRG ---
DATE OF SERVICE: 02/10/2019 SUBJECTIVE: Mr. Ewing is a 28-year-old male with ESRD and admitted for shortness of breath. He was found to have significant pleural effusion. He underwent hemodialysis today as well as yesterday, we removed a total of 6 L with 2 days of dialysis. We are considering thoracentesis with this patient. He had a previous thoracentesis and I think, this is related to his underlying lupus. His breathing is a little better today. OBJECTIVE: VITAL SIGNS: Blood pressure 150/91, heart rate 83, respiratory rate 18, temperature 98.5, and pulse ox 96%. GENERAL: Awake, alert, and comfortable, not in distress. SKIN: Adequate turgor. HEENT: Slightly pale conjunctivae. Anicteric sclerae. NECK: No neck mass. No carotid bruits. No JVD. CHEST: No deformities. LUNGS: Clear. Decreased breath sounds. HEART: Normal sinus rhythm. No murmur. No gallops. No rubs. ABDOMEN: Globular, soft, and nontender. No masses. EXTREMITIES: No edema. No deformities. MEDICATIONS: Medications of February 10, 2019, reviewed. LABORATORY DATA: Laboratories of February 10, 2019; sodium 135, potassium 4.8, chloride 98, carbon dioxide 26, BUN 48, creatinine 8.19, and calcium 9.3. Hemoglobin 10. ASSESSMENT AND PLAN: 1. End-stage renal disease, stable. He received 2 consecutive dialysis for fluid removal. Shortness of breath is slightly improved. Continuing Tuesday, Tuesday, and Tuesday hemodialysis regimen. 2. Pleural effusion, [id number]. The patient being considered for a thoracentesis today for therapeutic purposes. 3. Borderline anemia. We will continue to observe. 4. Agree with current management. Job ID: [id number]
[2019-02-10] MEDS ORDERED: Lidocaine 1% (PF) 30 ML VIAL ONE (11:58)
--- NOTE | 2019-02-10 12:48 | CT ---
EXAM: CT Chest Abd Pelvis WO Con PROVIDED CLINICAL HISTORY: Pleural effusion Ascites COMPARISON: 08/13/2018 FINDINGS: Chest: The heart, pericardium and great vessels are suboptimally evaluated in the absence of IV contrast mat erial. Left IJ hemodialysis catheter is noted, the tips of which terminate in the right atrium. There is a mild pericardial effusion. There is a small amount of loculated right pleural fluid. There are foci of gas seen within this flui d at the right lung base as well as within the adjacent intercostal and dorsal thoracic musculature, compatible with the provided clinical history of recent thoracentesis. There is no evide nce for pneumothorax. Small freely layering left pleural effusion. The airway appears patent and of normal caliber. Subsegmental atelectatic changes are noted adjacent to the pleural fluid. The lungs a re otherwise free of significant opacity. The solid abdominal organs are suboptimally evaluated in the absence of IV contrast material. The spl een is enlarged measuring about 16.7 cm in craniocaudal dimension. The kidneys appear diminutive. There is mild free intraperitoneal fluid. Changes of prior appendectomy are seen. There is no evidenc e for bowel obstruction. No definite inflammatory fat stranding. No evidence for free intraperitoneal air. Interval removal of peritoneal dialysis catheter. The osseous structures demonstrate no concerning osteoblastic or osteolytic lesions. IMPRESSION: 1. Bilateral pleural fluid with findings related to recent right thoracentesis as above. No evidence for pneumothorax. 2. Mild free intraperitoneal fluid. 3. Mild pericardial effusion. 4. Splenomegaly.
--- NOTE | 2019-02-10 13:07 | RAD ---
CHEST 1 VIEW: Date: 02/10/19 INDICATION: History of thoracentesis. COMPARISON: Prior PA and lateral of chest dated 02/09/19. FINDINGS: The right-sided pleural effusion has minimally decreased in size. There is some residual opacity with in the right lower lobe. Left lung is clear. Cardiomegaly persists. Pulmonary vascular congestion is similar appearing. Dialysis catheter is unchanged. IMPRESSION: 1. Slight interval decrease in size of the right-sided pleural effusion. Small to moderate right ple ural effusion remains. Right basilar opacity persists. 2. Cardiomegaly with pulmonary vascular congestion persists. POS: BH
[2019-02-10 13:09] LABS: BF Color Yellow; Body Fluid Source Thoracentesis Fluid; Clarity Hazy (Clear); Tube # 3; WBC Background Count 0.01
[2019-02-10 13:10] LABS: BF RBC Count - Manual 3463 /cumm; WBC/NonHematic-Auto 3290 /cumm
[2019-02-10 13:41] LABS: Cell Count Non Hematic 2 %; Lymphocytes 98 %
[2019-02-10] MEDS: NIFEdipine XL 60 MG TAB PO SCH (14:07)
[2019-02-10] MEDS: Calcium Carbonate 500 MG ChewTAB PO PRN (14:08)
[2019-02-10] MEDS: Losartan 25 MG TAB PO SCH (14:08)
[2019-02-10] MEDS: Carvedilol 25 MG TAB PO SCH ×2 (14:08→14:45)
[2019-02-10] MEDS: Hydroxychloroquine Sulfate 200 MG TAB PO SCH (14:08)
[2019-02-10] MEDS: hydrALAZINE 25 MG TAB PO SCH ×2 (14:15→20:39)
[2019-02-10] MEDS: Minoxidil 2.5 MG TAB PO SCH (14:26)
[2019-02-10] MEDS: Dicyclomine 10 MG CAP PO SCH (20:39)
[2019-02-10] MEDS: Famotidine 20 MG TAB PO SCH (20:39)
[2019-02-10] MEDS: Ferrous Sulfate 325 MG TAB PO SCH (20:39)
[2019-02-10] MEDS: levETIRAcetam 500 MG TAB PO SCH (20:39)
[2019-02-11 04:38] VITALS: BMI 21.6
[2019-02-11] MEDS: Losartan 25 MG TAB PO SCH (08:37)
[2019-02-11] MEDS: Carvedilol 25 MG TAB PO SCH ×2 (08:37→16:25)
[2019-02-11] MEDS: Hydroxychloroquine Sulfate 200 MG TAB PO SCH (08:37)
[2019-02-11] MEDS: NIFEdipine XL 60 MG TAB PO SCH (08:37)
[2019-02-11] MEDS: hydrALAZINE 25 MG TAB PO SCH ×2 (08:37→20:25)
[2019-02-11] MEDS: Minoxidil 2.5 MG TAB PO SCH (08:40)
--- NOTE | 2019-02-11 09:09 | PDOC.PN ---
- Subjective Encounter Start Date: 02/11/19 Encounter Start Time: 08:45 Patient seen and examined. No new complaints. No overnight events - Objective Resuscitation Status - Order Detail: 02/09/19 13:28 Resuscitation Status Routine Co-Sign Provider: Resuscitation Status: FULL: Full Resuscitation MAR Reviewed: Yes Vital Signs & Weight: Vital Signs (12 hours) Temp Pulse Resp BP Pulse Ox 02/11/19 08:37 77 02/11/19 07:37 98.3 F 77 20 146/89 H 94 L 02/11/19 04:00 98.1 F 75 16 125/75 96 02/11/19 00:00 98.4 F 79 16 129/78 94 L Weight Weight 137 lb 9.095 oz Result Diagrams: 02/10/19 06:09 02/10/19 06:09 Phys Exam - Physical Examination Constitutional: NAD HEENT: PERRLA, moist MMs, sclera anicteric Neck: no JVD, supple Respiratory: no wheezing, no rales, no rhonchi reduced air entry at base Cardiovascular: RRR, no significant murmur, no rub Gastrointestinal: soft, non-tender, no distention, positive bowel sounds Musculoskeletal: no edema, pulses present Neurological: non-focal, normal sensation Lymphatic: no nodes Psychiatric: normal affect, A&O x 3 Skin: no rash, normal turgor Dx/Plan (1) Pleural effusion Code(s): J90 - PLEURAL EFFUSION, NOT ELSEWHERE CLASSIFIED Status: Acute (2) Anemia of renal disease Code(s): D63.1 - ANEMIA IN CHRONIC KIDNEY DISEASE Status: Chronic (3) ESRD (end stage renal disease) on dialysis Code(s): N18.6 - END STAGE RENAL DISEASE; Z99.2 - DEPENDENCE ON RENAL DIALYSIS Status: Chronic Comment: (4) Hypoalbuminemia Code(s): E88.09 - OTH DISORDERS OF PLASMA-PROTEIN METABOLISM, NEC Status: Chronic (5) SLE (systemic lupus erythematosus) Code(s): M32.9 - SYSTEMIC LUPUS ERYTHEMATOSUS, UNSPECIFIED Status: Chronic Comment: Likely etiology of ESRD, continue continue Plaquenil, Prednisone (6) Secondary hyperparathyroidism of renal origin Code(s): N25.81 - SECONDARY HYPERPARATHYROIDISM OF RENAL ORIGIN Status: Chronic - Plan cont current plan of care * medication reviewed as below * symptomatic treatment * HD as per nephrology * pulmonary following. Review of Systems - Review of Systems ENT: negative: Ear Pain, Ear Discharge, Nose Pain, Nose Discharge, Nose Congestion, Mouth Pain, Mouth Swelling, Throat Pain, Throat Swelling, Other Respiratory: negative: Cough, Dry, Shortness of Breath, Hemoptysis, SOB with Excertion, Pleuritic Pain, Sputum, Wheezing Cardiovascular: negative: chest pain, palpitations, orthopnea, paroxysmal nocturnal dyspnea, edema, light headedness, other Gastrointestinal: negative: Nausea, Vomiting, Abdominal Pain, Diarrhea, Constipation, Melena, Hematochezia, Other Genitourinary: negative: Dysuria, Frequency, Incontinence, Hematuria, Retention , Other Musculoskeletal: negative: Neck Pain, Shoulder Pain, Arm Pain, Back Pain, Hand Pain, Leg Pain, Foot Pain, Other - Medications/Allergies Allergies/Adverse Reactions: Allergies Allergy/AdvReac Type Severity Reaction Status Date / Time promethazine [From Phenergan] Allergy Verified 01/23/19 01:45 Medications: Current Medications Acetaminophen (Tylenol) 650 mg PO Q4H PRN PRN Reason: Headache/Fever/Mild Pain (1-3) Calcium Carbonate (Tums) 500 mg PO QID PRN PRN Reason: Indigestion Last Admin: 02/10/19 14:08 Dose: 500 mg Carvedilol (Coreg) 25 mg PO BID-[facility] Last Admin: 02/11/19 08:37 Dose: 25 mg Dicyclomine HCl (Bentyl) 10 mg PO QPM [facility] Last Admin: 02/10/19 20:39 Dose: 10 mg Famotidine (Pepcid) 20 mg PO QPM [facility] Last Admin: 02/10/19 20:39 Dose: 20 mg Ferrous Sulfate (Feosol) 325 mg PO QPM [facility] Last Admin: 02/10/19 20:39 Dose: 325 mg Hydralazine HCl (Apresoline) 100 mg PO BID [facility] Last Admin: 02/11/19 08:37 Dose: 100 mg Hydroxychloroquine Sulfate (Plaquenil) 200 mg PO DAILY [facility] Last Admin: 02/11/19 08:37 Dose: 200 mg Levetiracetam (Keppra) 500 mg PO QPM [facility] Last Admin: 02/10/19 20:39 Dose: 500 mg Losartan Potassium (Cozaar) 50 mg PO DAILY [facility] Last Admin: 02/11/19 08:37 Dose: 50 mg Minoxidil (Minoxidil) 5 mg PO DAILY [facility] Last Admin: 02/11/19 08:40 Dose: Not Given Nifedipine (Procardia Xl) 60 mg PO DAILY [facility] Last Admin: 02/11/19 08:37 Dose: 60 mg Ondansetron HCl (Zofran) 4 mg IVP Q6H PRN PRN Reason: Nausea/Vomiting
[2019-02-11] MEDS ORDERED: Epoetin (ESRD) 20,000 UNITS/ML SC SCH (10:30)
--- NOTE | 2019-02-11 10:59 | PRG ---
DATE OF SERVICE: 02/11/2019 SUBJECTIVE: Mr. Ewing is a 28-year-old male, followed by [facility] for his ESRD - on maintenance hemodialysis. He came in short of breath. He was found to have significant pleural effusion. We attempted to max out fluid removal by doing 2 consecutive dialysis sessions with this patient. His shortness of breath has much improved. He has also been evaluated by Dr. Alvarez for his pleural effusion. A CT of the chest was done, which showed bilateral fluid. There was no evidence of pneumothorax. Attempt to remove fluid showed a relatively dry tap. He also has a mild pericardial effusion. No complaints of chest pain or shortness of breath. OBJECTIVE: VITAL SIGNS: Blood pressure 146/89, heart rate 77, respiratory rate 20, temperature 98.3, and pulse ox 94%. GENERAL: He is awake, alert, comfortable, not in distress. SKIN: Adequate turgor. HEENT: Slightly pale conjunctivae. Anicteric sclerae. No neck mass. No carotid bruits. No JVD. CHEST: No deformities. LUNGS: Decreased breath sounds. HEART: Normal sinus rhythm. No murmur. No gallops or rubs. ABDOMEN: Globular, soft, and nontender. No masses. EXTREMITIES: No edema. No deformities. MEDICATIONS: Medications of February 11, 2019, was reviewed. LABORATORY DATA: February 10, 2019: White count 4.1 and hemoglobin 10. Sodium 135, potassium 4.8, chloride 98, carbon dioxide 26, BUN 48, creatinine 8.19, glucose 82, and calcium 9.3. ASSESSMENT AND PLAN: 1. End-stage renal disease, stable. No indication for any emergent hemodialysis. We are trying to max out fluid removal with the dialysis due to the patient's anasarca. 2. Anemia. We will resume back his Epogen at 7500 units subcutaneously every week. 3. Bilateral pleural effusion - attempt for thoracentesis, which showed minimal fluid. 4. Continue supportive care. Max out fluid removal with dialysis. Agree with current management. Job ID: [id number]
[2019-02-11] MEDS: Calcium Carbonate 500 MG ChewTAB PO PRN ×2 (12:24→16:26)
--- NOTE | 2019-02-11 12:28 | PRG ---
DATE OF SERVICE: 02/11/2019 SUBJECTIVE: This morning, he is awake, alert, and responsive, in no distress. No pain. No shortness of breath. He is much improved. OBJECTIVE: VITAL SIGNS: His sats are 94% on room air, temperature 98, blood pressure 146/89, and respirations 18. CHEST: Severe decreased breath sounds, right base. Left unremarkable. CARDIAC: Normal S1 and S2. No gallops. ABDOMEN: No masses. A very small amount of pleural effusion was removed from his right chest. CAT scan showed a loculated pleural effusion, very small, not enough to tap again and not enough to do anything at this stage. IMPRESSION: 1. Loculated pleural effusion, previous thoracentesis lupus and renal failure. Pulmonary diaz to be discharged home. Follow up with his primary care physician unless the pleural effusion appeared to get larger. No additional input at that time. Effusion gets larger has fever. He may require decortication. Job ID: [id number]
[2019-02-11] MEDS ORDERED: Heparin 10,000 UNITS/ 10 ML VIAL ONE (17:42)
[2019-02-11] MEDS: Famotidine 20 MG TAB PO SCH (20:25)
[2019-02-11] MEDS: levETIRAcetam 500 MG TAB PO SCH (20:25)
[2019-02-11] MEDS: Dicyclomine 10 MG CAP PO SCH (20:25)
[2019-02-11] MEDS: Ferrous Sulfate 325 MG TAB PO SCH (20:25)
--- NOTE | 2019-02-12 04:33 | CON ---
DATE OF CONSULTATION: HISTORY OF PRESENT ILLNESS: Greg Ewing is a 28-year-old gentleman, who has history of end-stage renal disease, he sees Dr. Causey on a regular basis. He had a hemodialysis placed in 6 months ago. Prior to that, he had peritoneal dialysis. He has lupus nephritis. He sees [facility] in [place]. Additionally, he has some evidence of congestive heart failure. X-ray shows a pleural effusion, right greater than left, which apparently is new. There was some concern that this may be infected. This morning, he is still having pain, but no fever or chills. PAST MEDICAL HISTORY: Otherwise as noted, end-stage renal disease, lupus, hypertension. MEDICATIONS: Chronic medications: 1. Prednisone 40. 2. Hydralazine 100 three times a day. 3. Nifedipine 60. 4. Minoxidil 5. 5. Losartan 50. 6. Plaquenil 200. 7. Bentyl 10. PAST SURGICAL HISTORY: Otherwise pertinent for his previous access, previous appendix. SOCIAL HISTORY: No alcohol or tobacco abuse. PHYSICAL EXAMINATION: GENERAL: Appears to be in no acute distress. Right-sided dullness, decreased breath sounds. VITAL SIGNS: Sats on room air, pulse 83, respirations 18, temperature 98. CHEST: Decreased breath sounds at right base. Left lung unremarkable. CARDIAC: Normal S1, S2. No gallops. ABDOMEN: No masses. LABORATORY DATA: White count 4000, H and H 10 and 32, platelet count 162, creatinine 8.1. IMPRESSION: 1. Right pleural effusion, new. 2. Chronic renal failure. 3. Lupus. 4. Congestive heart failure. PLAN: I am going to attempt to do a thoracentesis, culture purposes. Further recommendation above. Job ID: [id number]
[2019-02-12] MEDS: Losartan 25 MG TAB PO SCH (08:22)
[2019-02-12] MEDS: NIFEdipine XL 60 MG TAB PO SCH (08:22)
[2019-02-12] MEDS: hydrALAZINE 25 MG TAB PO SCH (08:22)
[2019-02-12] MEDS: Carvedilol 25 MG TAB PO SCH (08:22)
[2019-02-12] MEDS: Hydroxychloroquine Sulfate 200 MG TAB PO SCH (08:23)
[2019-02-12] MEDS: Minoxidil 2.5 MG TAB PO SCH (08:24)
--- NOTE | 2019-02-12 11:01 | OP ---
DATE OF PROCEDURE: 02/10/2019 PROCEDURE PERFORMED: Thoracentesis. Reviewing some of his x-rays, it was felt his pleural effusion is new, even though he underwent a thoracentesis in [place] in September. DESCRIPTION OF PROCEDURE: Therefore after having the consent, the right posterior thorax was cleaned with chlorhexidine, 1% Xylocaine was infiltrated into the right ninth intercostal space in the midscapular line, no fluid was obtained. In eight intercostal space midscapular line, to my surprise, 1 mL of fluid was removed with some difficulty. The pleura appears to be thick. It appears the fluid may be loculated. Attempts to drain the fluid in the eight intercostal space in the different area in the mid posterior axillary line. Once again, no fluid was removed. The small amount of fluid was obtained to be sent for Gram stain and C and S. Otherwise, the patient tolerated the procedure well. I may consider doing a noncontrast CT of his chest just to make sure the fluid was not loculated. Job ID: [id number]
[2019-02-12] MEDS ORDERED: Heparin 10,000 UNITS/ 10 ML VIAL ONE (11:11)
--- NOTE | 2019-02-12 12:04 | PRG ---
DATE OF SERVICE: SUBJECTIVE: Mr. Ewing is a 28-year-old male with ESRD and admitted for shortness of breath. He was found to have pleural effusion. Pulmonary has evaluated this patient. The feeling is that this is a loculated pleural effusion. Should the pleural effusion get peak, this patient may be a candidate for pulmonary decortication. This morning, he is feeling better. We have attempted aggressive dialysis with fluid removal with this patient. He did receive 2 consecutive dialysis over the weekend. He is breathing better. No new complaints today. OBJECTIVE: VITAL SIGNS: Blood pressure is 179/103 - before BP medications, heart rate 67, respiratory rate 18, temperature 97.9, and pulse ox 97%. GENERAL: Noted to be awake, alert, comfortable, not in distress. SKIN: Adequate turgor. HEENT: Pinkish conjunctivae. Anicteric sclerae. NECK: No neck mass. No carotid bruits. No JVD. CHEST: No deformities. LUNGS: Decreased breath sounds. HEART: Normal sinus rhythm. No murmurs. No gallops. No rubs. ABDOMEN: Globular, soft, and nontender. No masses. EXTREMITIES: No edema. No deformities. MEDICATIONS: Medications of February 12, 2019, reviewed. LABORATORY DATA: Laboratories of February 10, 2019; BUN 48, creatinine 8.19, sodium 135, potassium 4.8, chloride 98, and carbon dioxide 26. White count 4.1 and hemoglobin 10. ASSESSMENT AND PLAN: 1. Chronic pleural effusion - supportive care. If the pleural effusion worsens overtime, he may be a candidate for pulmonary decortication. 2. End-stage renal disease, stable, tolerating current hemodialysis regimen. We will schedule for dialysis today. Again, fluid removal only as tolerated by the patient. 3. Mild pericardial effusion - attempt to remove with hemodialysis. Continue to challenge fluid removal with this patient. 4. Systemic lupus erythematosus - continue current lupus medications. 5. Agree with current management. Job ID: [id number]
--- NOTE | 2019-02-12 12:31 | PDOC.PN ---
- Subjective Encounter Start Date: 02/12/19 Encounter Start Time: 11:00 Patient seen and examined. No new complaints. No overnight events - Objective Resuscitation Status - Order Detail: 02/09/19 13:28 Resuscitation Status Routine Co-Sign Provider: Resuscitation Status: FULL: Full Resuscitation MAR Reviewed: Yes Vital Signs & Weight: Vital Signs (12 hours) Temp Pulse Resp BP Pulse Ox 02/12/19 08:22 67 02/12/19 07:58 97.9 F 67 18 179/103 H 97 02/12/19 04:09 97.4 F L 66 18 178/96 H 94 L Weight Weight 137 lb 9.095 oz Result Diagrams: 02/10/19 06:09 02/10/19 06:09 Phys Exam - Physical Examination Constitutional: NAD HEENT: PERRLA, moist MMs, sclera anicteric Neck: no JVD, supple Respiratory: no wheezing, no rales, no rhonchi Cardiovascular: RRR, no significant murmur, no rub Gastrointestinal: soft, non-tender, no distention, positive bowel sounds Musculoskeletal: no edema, pulses present Neurological: non-focal, normal sensation, moves all 4 limbs Lymphatic: no nodes Psychiatric: normal affect, A&O x 3 Skin: no rash, normal turgor Dx/Plan (1) Pleural effusion Code(s): J90 - PLEURAL EFFUSION, NOT ELSEWHERE CLASSIFIED Status: Acute (2) Anemia of renal disease Code(s): D63.1 - ANEMIA IN CHRONIC KIDNEY DISEASE Status: Chronic (3) ESRD (end stage renal disease) on dialysis Code(s): N18.6 - END STAGE RENAL DISEASE; Z99.2 - DEPENDENCE ON RENAL DIALYSIS Status: Chronic Comment: (4) Hypoalbuminemia Code(s): E88.09 - OTH DISORDERS OF PLASMA-PROTEIN METABOLISM, NEC Status: Chronic (5) SLE (systemic lupus erythematosus) Code(s): M32.9 - SYSTEMIC LUPUS ERYTHEMATOSUS, UNSPECIFIED Status: Chronic Comment: Likely etiology of ESRD, continue continue Plaquenil, Prednisone (6) Secondary hyperparathyroidism of renal origin Code(s): N25.81 - SECONDARY HYPERPARATHYROIDISM OF RENAL ORIGIN Status: Chronic - Plan cont current plan of care * medication reviewed as below * symptomatic treatment * see discharge summerelly. Review of Systems - Review of Systems ENT: negative: Ear Pain, Ear Discharge, Nose Pain, Nose Discharge, Nose Congestion, Mouth Pain, Mouth Swelling, Throat Pain, Throat Swelling, Other Respiratory: negative: Cough, Dry, Shortness of Breath, Hemoptysis, SOB with Excertion, Pleuritic Pain, Sputum, Wheezing Cardiovascular: negative: chest pain, palpitations, orthopnea, paroxysmal nocturnal dyspnea, edema, light headedness, other Gastrointestinal: negative: Nausea, Vomiting, Abdominal Pain, Diarrhea, Constipation, Melena, Hematochezia, Other Genitourinary: negative: Dysuria, Frequency, Incontinence, Hematuria, Retention , Other Musculoskeletal: negative: Neck Pain, Shoulder Pain, Arm Pain, Back Pain, Hand Pain, Leg Pain, Foot Pain, Other - Medications/Allergies Allergies/Adverse Reactions: Allergies Allergy/AdvReac Type Severity Reaction Status Date / Time promethazine [From Phenergan] Allergy Verified 01/23/19 01:45 Medications: Current Medications Acetaminophen (Tylenol) 650 mg PO Q4H PRN PRN Reason: Headache/Fever/Mild Pain (1-3) Calcium Carbonate (Tums) 500 mg PO QID PRN PRN Reason: Indigestion Last Admin: 02/11/19 16:26 Dose: 500 mg Carvedilol (Coreg) 25 mg PO BID-[facility] Last Admin: 02/12/19 08:22 Dose: 25 mg Dicyclomine HCl (Bentyl) 10 mg PO QPM [facility] Last Admin: 02/11/19 20:25 Dose: 10 mg Epoetin Aj (Procrit) 7,500 units SC Q7D [facility] Last Admin: 02/11/19 12:19 Dose: 7,500 units Famotidine (Pepcid) 20 mg PO QPM [facility] Last Admin: 02/11/19 20:25 Dose: 20 mg Ferrous Sulfate (Feosol) 325 mg PO QPM [facility] Last Admin: 02/11/19 20:25 Dose: 325 mg Hydralazine HCl (Apresoline) 100 mg PO BID [facility] Last Admin: 02/12/19 08:22 Dose: 100 mg Hydroxychloroquine Sulfate (Plaquenil) 200 mg PO DAILY [facility] Last Admin: 02/12/19 08:23 Dose: 200 mg Levetiracetam (Keppra) 500 mg PO QPM [facility] Last Admin: 02/11/19 20:25 Dose: 500 mg Losartan Potassium (Cozaar) 50 mg PO DAILY [facility] Last Admin: 02/12/19 08:22 Dose: 50 mg Minoxidil (Minoxidil) 5 mg PO DAILY [facility] Last Admin: 02/12/19 08:24 Dose: Not Given Nifedipine (Procardia Xl) 60 mg PO DAILY [facility] Last Admin: 02/12/19 08:22 Dose: 60 mg Ondansetron HCl (Zofran) 4 mg IVP Q6H PRN PRN Reason: Nausea/Vomiting
[2019-02-12 13:05] VITALS: BP 135/94; TEMP 97.8
--- NOTE | 2019-02-12 13:22 | DIS ---
DATE OF ADMISSION: 02/09/2019 DATE OF DISCHARGE: 02/12/2019 PRIMARY CARE PHYSICIAN: Judi Estrada, DO DISCHARGE DISPOSITION: Home. PRIMARY DISCHARGE DIAGNOSIS: Dyspnea due to pleural effusion, status post thoracentesis. SECONDARY DISCHARGE DIAGNOSIS: Systemic lupus erythematosus, anemia of renal disease, secondary hyperparathyroidism of renal origin, hypoalbuminemia, end-stage renal disease on hemodialysis. PRIMARY PROCEDURE/OPERATION: Maintenance hemodialysis, thoracentesis. RADIOLOGICAL INVESTIGATION: Chest x-ray, CT abdomen and pelvis. SIGNIFICANT LABORATORY DATA: WBC 4.1, hemoglobin 10.0, platelet 162. Sodium 135, creatinine 8.19. LFT normal. DISCHARGE MEDICATIONS: 1. Rocaltrol 0.25 mcg p.o. daily. 2. Tums 500 mg p.o. q.i.d. 3. Hydralazine 100 mg t.i.d. 4. Plaquenil 200 mg p.o. daily. 5. Keppra 500 mg p.o. daily. 6. Coreg 25 mg p.o. b.i.d. CONTRAINDICATION: None. CODE STATUS: Full code. INPATIENT CONSULTANTS: Dr. Antonio England. TEST RESULTS PENDING ON DISCHARGE: None. ALLERGIES: PROMETHAZINE. DISCHARGE PLAN: Posthospital, the patient will follow up with Dr. Judi Estrada in 1 week. The patient will make appointment with Dr. Causey and Dr. Alvarez as instructed. HOSPITAL COURSE: A 28-year-old male with above-mentioned medical problem, who was admitted by Garcia Radha. Please see her H and P for further details. The patient was having dyspnea and he was found with worsening pleural effusion. He was admitted to medical floor. Nephrology was consulted for hemodialysis. Pulmonary group was consulted for thoracentesis. This time, the patient only had a very little amount of thoracentesis fluid removed. Dr. Alvarez cleared him for discharge. The patient is doing much better after dialysis. At this point, suspecting his fluid is loculated without any infection. The patient will follow up with Pulmonary and Nephrology after discharge. The patient is seen and examined at bedside today. Please see my progress note from today for further details. Job ID: [id number]
--- NOTE | 2019-02-12 16:15 | PQF ---
CLINICAL DOCUMENTATION IMPROVEMENT CLARIFICATION FORM: ICD-10 Updated PLEASE DO AN ADDENDUM TO THE PROGRESS NOTE WITH ANY DOCUMENTATION UPDATES OR ADDITIONS AND CARRY THROUGH TO DC SUMMARY. THANK YOU. DATE: 02/12/2019 ATTN: Dr. Hicks Please exercise your independent, professional judgment in responding to the clarification form. Clinical indicators are provided on the bottom of this form for your review Please check appropriate box(s) to clarify if the following diagnosis has been ruled in or ruled out: Congestive Heart Failure [ ] Ruled in diagnosis [ ] Continue to treat [ ] Resolved [ x ] Ruled out diagnosis [ ] Cannot rule out diagnosis [ ] Other diagnosis _pleural effusion related with SLE and renal failure ___ [ ] Unable to determine In addition, please specify: Present on Admission (POA): [ ] Yes [ x ] No [ ] Unable to determine For continuity of documentation, please document condition throughout progress notes and discharge summary. Thank You. CLINICAL INDICATORS - SIGNS / SYMPTOMS / LABS PN 02/10 (Alvarez): he has some evidence of congestive heart failure. X-ray shows a pleural effusion, R > L, which apparently is new. Impression: R pleural effusion, new Congestive heart failure. PN 02/11 (Alvarez): A very sm amount of pleural effusion was removed from his r chest. CAT scan showed a loculated pleural effusion, very small, not enough to tap again DC SUMMARY 02/12: Dyspnea due to pleural effusion, status post thoracentesis. At this point, suspecting his fluid is loculated without any infection. RISKS: H&P 02/09: ESRD 2/2 lupus nephritis, now on hemodialysis. SOB 2/2 volume overload with large r pleural effusion which appears to be symptomatic. TREATMENT: Op Note 02/10: Thoracentesis Thank you, Linnea (This form is maintained as a part of the permanent medical record) 2014 [employer], [employer]. All Rights Reserved Linnea Javed RN, BSN [email or web address] Office: [phone] [facility]
[2019-02-17] MEDS ORDERED: predniSONE 20 MG TAB PO SCH (08:00)
[2019-02-23] MEDS ORDERED: predniSONE 5 MG TAB PO SCH ×2 (08:00)
== END 2019-02-12 14:28 | disposition home or self-care (01) | DRG 186 ==
LOC: ERS 09:04 → T4-A 17:44
PROVIDERS: ADMIT Internal Medicine; ATTEND Internal Medicine
PROC: 5A1D70Z Performance of Urinary Filtration, Intermittent, Less than 6 Hours Per Day (ICD-10-PCS; principal; 2019-02-09)
PROC: 0W993ZZ Drainage of Right Pleural Cavity, Percutaneous Approach (ICD-10-PCS; 2019-02-10)
DX: J90 Pleural effusion, not elsewhere classified (principal); N18.6 End stage renal disease; I12.0 Hypertensive chronic kidney disease with stage 5 chronic kidney disease or end stage renal disease; N25.81 Secondary hyperparathyroidism of renal origin; I31.3 Pericardial effusion (noninflammatory); R06.02 Shortness of breath; M32.14 Glomerular disease in systemic lupus erythematosus; M54.5 Low back pain; Z99.2 Dependence on renal dialysis; D63.1 Anemia in chronic kidney disease; Z88.8 Allergy status to other drugs, medicaments and biological substances; Z79.52 Long term (current) use of systemic steroids; E88.09 Other disorders of plasma-protein metabolism, not elsewhere classified
CPT/HCPCS: 36415; 71045; 71046; 71250; 74177; 80048; 80053; 82150; 82945; 83615; 83690; 84157; 84478; 85025; 85060; 87070; 87116; 87205; 87206; 89051; 90935; G0257; J0360; J1642; J1644; J2001; J2405; Q4081

== ENCOUNTER 2019-05-31 18:22 | Inpatient (IN) | payer OTHER ==
[2019-05-31 19:15] LABS: #Lymphocytes 0.6 thou/uL (1.20-3.40); #Monocytes 0.2 thou/uL (0.11-0.59); #Neutrophils 2.8 thou/uL (1.40-6.50); %Basophils 0.3 % (0.0-1.0); %Eosinophils 1.3 % (0.0-10.0); %Lymphocytes 15.6 % (21.0-51.0); %Monocytes 4.7 % (0.0-10.0); Hemoglobin 11.4 g/dL (14.0-18.0); Mean Corpuscular HGB CONC 31.7 g/dL (32.0-36.0); Mean Corpuscular Hemoglobin 29.3 pg (27.0-31.0); Mean Corpuscular Volume 92.3 fL (78.0-98.0); Mean Platelet Volume 7.6 fL (7.4-10.4); Platelet Count 141 thou/uL (130-400); RBC Distribution Width 14.2 % (11.5-14.5); White Blood Cell (WBC) Count 3.5 thou/uL (4.8-10.8)
[2019-05-31 19:33] LABS: Anion Gap 19 mmol/L (10-20); BUN (Urea Nitrogen) 58 mg/dL (8.9-20.6); Calc. Creatinine Clearance 0 mL/min (70-130); Calcium 9.3 mg/dL (7.8-10.44); Carbon Dioxide 22 mmol/L (22-29); Chloride 103 mmol/L (98-107); Estimated GFR-MDRD 3; Glucose 85 mg/dL (70-105); Potassium 4.6 mmol/L (3.5-5.1); Sodium 139 mmol/L (136-145)
--- NOTE | 2019-05-31 20:22 | ULT ---
LEFT UPPER EXTREMITY VENOUS DOPPLER EVALUATION WITH SPECTRAL ANALYSIS AND COLOR FLOW EVALUATION: 05/31/19 HISTORY: Left upper extremity swelling. Patient has left upper extremity arterial venous dialysis fistula. FINDINGS: There is evidence of a left upper extremity arterial venous dialysis fistula which based on limited i mages may represent a brachial artery to antecubital vein fistula as both the basilic and cephalic ve ins are distended with arterialization of flow within the basilic and cephalic veins, each of which i s patent. There is also arterialization of flow within the left internal jugular, subclavian, and axi llary veins. The left upper extremity brachial vein demonstrates normal lumen compressibility and flow. The arter ial venous anastomosis is difficult to evaluate on this exam. Again, there is normal flow within the left upper extremity deep venous structures with evidence of a left upper extremity arterial venous f istula which does appear patent. The left radial and ulnar veins were not imaged. There is mild subcutaneous edema seen involving the left upper extremity. IMPRESSION: 1. Evidence of a left upper extremity arterial venous dialysis fistula which is patent. 2. Mild subcutaneous edema left upper extremity. POS: KYLE
[2019-05-31 21:41] VITALS: BMI 20.3
[2019-05-31] MEDS ORDERED: Calcium Carbonate 500 MG ChewTAB PO PRN (23:44)
[2019-05-31] MEDS ORDERED: Carvedilol 25 MG TAB PO SCH (23:45)
[2019-05-31] MEDS ORDERED: Calcitriol 0.25 MCG CAP PO SCH (23:45)
[2019-05-31] MEDS ORDERED: levETIRAcetam 500 MG TAB PO SCH (23:45)
[2019-05-31] MEDS ORDERED: hydrALAZINE 25 MG TAB PO SCH (23:45)
[2019-06-01] MEDS ORDERED: Hydroxychloroquine Sulfate 200 MG TAB PO SCH ×4 (00:15→21:00)
[2019-06-01] MEDS ORDERED: Activase 2 MG VIAL CATH SCH (01:15)
[2019-06-01] MEDS ORDERED: Sterile Water 10 ML VIAL IVP SCH (01:15)
--- NOTE | 2019-06-01 01:31 | HP ---
CHIEF COMPLAINT: Elevated blood pressure, shortness of breath. HISTORY OF PRESENT ILLNESS: This patient is a 28-year-old male, with a history of lupus nephritis and end-stage renal disease, on dialysis. The patient had previously been on peritoneal dialysis. He was most recently here in January. The patient had his peritoneal dialysis catheter removed and required hemodialysis. He had a fistula placed in the left upper extremity by Dr. Parr and he has a left subclavian tunneled catheter. The patient subsequently had his peritoneal dialysis catheter replaced at [facility] and had training on it and it worked well. He started it at home on Tuesday. He reports for the first 3 nights he had negative balance, but for the last 2 nights it was actually positive, but in spite of that, he developed some swelling in his face, some swelling in his left upper extremity, some elevated blood pressure and some shortness of breath. He recognizes us from previous admissions as being some volume overload; therefore, he presented to the emergency department. The patient apparently talked to the folks at [facility] and was told that it may be related to some constipation issues. He has been taking some laxatives and reports they have been helpful and he is starting to feel some better in general. REVIEW OF SYSTEMS: Primarily noted for the facial and left upper extremity edema, constipation and shortness of breath. All stated above. All other systems reviewed. All pertinent positives and negatives were noted above. PAST MEDICAL HISTORY: End-stage renal disease secondary to lupus nephritis, on intermittent hemodialysis and peritoneal dialysis. He reports that his left upper extremity fistula worked well previously for the first four times. Using it on the 5th try caused some significant edema and he had to go to the tunneled catheter. He has hypertension, anemia of chronic renal disease, history of seizure disorders. PAST SURGICAL HISTORY: Peritoneal dialysis catheter placement, removal and replacement, history of tunneled hemodialysis catheter, kidney biopsy, thoracentesis for fluid overload and prior appendectomy. FAMILY HISTORY: Lupus in his grandmother, diabetes and kidney failure in his father. SOCIAL HISTORY: Nonsmoker, nondrinker. Denies drugs. He is a full code. ALLERGIES: PROMETHAZINE. HOME MEDICATIONS: 1. Keppra 500 mg one p.o. q.p.m. 2. Hydralazine 100 mg t.i.d. 3. Plaquenil 200 mg daily. 4. Coreg 25 mg b.i.d. 5. Tums 500 mg q.i.d. 6. Rocaltrol 0.25 mg one p.o. q.p.m. PHYSICAL EXAMINATION: GENERAL APPEARANCE: Age-appropriate male, in no distress, may have a mild bit of facial edema. HEENT: MARKUS, no acute lesions. NECK: Supple and symmetric. No lymphadenopathy, JVD, or bruits. HEART: Regular rate and rhythm without murmurs, gallops, or rubs. LUNGS: Clear to auscultation bilaterally with good chest wall expansion and air exchange. ABDOMEN: Soft, nontender, and nondistended. Hemodialysis catheter looks good. He has a small midline surgical incision, which appears to be healing well as well as some laparoscopic puncture sites that are healing well. EXTREMITIES: No cyanosis, clubbing, or edema. He has a left upper extremity AV fistula with a good thrill in the tunneled subclavian catheter on the left. NEUROLOGIC: He appears to be fully intact with no focal deficits. PSYCHIATRIC: Normal affect and behavior. LABORATORY DATA: White count 3.5, hemoglobin 11.4, platelets 141. Sodium 139, potassium 4.6, chloride 103, CO2 22, BUN 58, creatinine is 19.62, glucose 85, calcium 9.3. IMAGING: Left upper extremity Doppler shows no evidence of deep venous thrombosis. AV fistula is intact and patent. IMPRESSION AND PLAN: 1. Volume overload secondary to ineffective peritoneal dialysis. At this point, it is unclear if his constipation was related to his peritoneal dialysis catheter malfunction, although it is not likely. We will have Dr. Causey see the patient in the morning. Basically, we will need to decide, if he is going to need hemodialysis, which I suspect he will and then determine whether the peritoneal dialysis catheter needs to be assessed here or if he needs to go back to [facility] in [place], where it was placed. 2. Hypertension. The patient did not receive his usual medicines this evening. We will get him back on those to see, if we can get his pressure a little better. 3. History of seizure disorder. Continue with his Keppra. 4. Lupus. Continue with Plaquenil. Job ID: [id number]
[2019-06-01] MEDS: Acetaminophen 325 MG TAB PO PRN ×2 (04:25→20:26)
[2019-06-01] MEDS: Carvedilol 25 MG TAB PO SCH ×2 (09:29→17:19)
[2019-06-01] MEDS: hydrALAZINE 25 MG TAB PO SCH ×3 (09:29→20:25)
--- NOTE | 2019-06-01 10:22 | CON ---
DATE OF CONSULTATION: HISTORY OF PRESENT ILLNESS: Mr. Ewing is a 28-year-old male with ESRD, currently on peritoneal dialysis. He was recently converted to peritoneal dialysis from hemodialysis. He was admitted since the patient was complaining that the PD catheter may not be working. The PD nurses evaluated this and we feel that the PD catheter is functional. We have started on PD last night. We are awaiting the results of the ultrafiltration. My plan if we do not get enough fluid removal, we will use a 4.25% PD solution tonight. The last KUB suggested that the catheter may be in the mid abdomen. We are going to give lactulose to help reposition this catheter, hopefully with this conservative management. I examined the patient, he is not in volume overload. He is oxygenating well. I do not think there is indication to do hemodialysis. We will await the results of the next PD whether he should call surgery or not. REVIEW OF SYSTEMS: No chest pain. Positive for chronic left upper extremity swelling. No shortness of breath. No diarrhea. No constipation. No productive cough. No abdominal pain. No dysuria. No urinary frequency. No fever or chills. No headache. No diplopia. MEDICATIONS: The patient is currently on: 1. Acetaminophen 650 mg q.4 p.r.n. 2. Calcitriol 0.25 mcg at bedtime. 3. Calcium carbonate 500 mg p.o. q.i.d. 4. Carvedilol 25 mg p.o. b.i.d. 5. Hydralazine 100 mg p.o. t.i.d. 6. Hydroxychloroquine 200 mg at bedtime. 7. Keppra 500 mg q.p.m. PAST MEDICAL HISTORY: 1. 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 2. SLE. 3. Hypertension. 4. History of noncompliance. PAST SURGICAL HISTORY: Status post PD catheter placement recently, status post AV fistula placement, status post cuffed dialysis catheter placement, status post skin biopsy, status post thoracentesis for pleural effusion, status post laparoscopic appendectomy for perforated appendix. SOCIAL HISTORY: The patient lives in [place], has a live-in girlfriend. No children. Currently not working. No history of smoking. No IV drug abuse. Status post blood transfusion. Five siblings. FAMILY HISTORY: Positive family history of ESRD. Father on dialysis - disease. IMMUNIZATION: Up-to-date. HOSPITALIZATIONS: Please see past medical history. TRAUMA: None. ALLERGIES: NONE. PHYSICAL EXAMINATION: VITAL SIGNS: Blood pressure is 144/86, heart rate 74, respiratory rate 20, temperature 98.1, and pulse ox 95%. GENERAL: Awake, alert, and comfortable. SKIN: Adequate turgor. HEENT: He has pinkish conjunctivae. Anicteric sclerae. NECK: No neck mass. No carotid bruits. No JVD. CHEST: No deformities. LUNGS: Clear breath sounds. No wheezing. No crackles. HEART: Normal sinus rhythm. No murmurs. No gallops. No rubs. ABDOMEN: Globular, soft, and nontender. No masses. Positive for PD catheter. EXTREMITIES: No edema. No deformities. Positive for AV fistula. Positive for bruit. LABORATORY DATA: Laboratories of May 31, 2019; white count 3.5, hemoglobin 11.4. Sodium 139, potassium 4.6, chloride 103, carbon dioxide 22, BUN 58, creatinine 19.62, and calcium 9.3. On May 31, 2019, vascular ultrasound evidence of AV fistula, mild subcutaneous edema. Dialysis fistula is noted to be patent. ASSESSMENT AND PLAN: 1. End-stage renal disease. Continue current CCPD regimen. If ultrafiltration is negative, we will use a 4.25% PD solution tonight. We will start lactulose 30 mL daily to help reposition of the PD catheter. 2. Left upper extremity swelling. He may need an AV fistulogram as an outpatient. 3. Systemic lupus erythematosus, in remission. 4. Agree with current management. Recheck CBC and basic metabolic in a.m. Job ID: [id number]
[2019-06-01] MEDS ORDERED: Heparin 10,000 UNITS/ 10 ML VIAL FS SCH (15:00)
[2019-06-01] MEDS ORDERED: Calcium Carbonate 500 MG ChewTAB PO PRN (18:19)
[2019-06-01] MEDS ORDERED: levETIRAcetam 500 MG TAB PO SCH (21:00)
[2019-06-01] MEDS ORDERED: Calcitriol 0.25 MCG CAP PO SCH ×2 (21:00)
[2019-06-02 06:13] LABS: Anion Gap 18 mmol/L (10-20); BUN (Urea Nitrogen) 60 mg/dL (8.9-20.6); Calc. Creatinine Clearance 5 mL/min (70-130); Calcium 9.1 mg/dL (7.8-10.44); Carbon Dioxide 21 mmol/L (22-29); Chloride 104 mmol/L (98-107); Estimated GFR-MDRD 3; Glucose 98 mg/dL (70-105); Potassium 4.2 mmol/L (3.5-5.1); Sodium 139 mmol/L (136-145)
[2019-06-02 06:15] LABS: #Eosinphils 0.1 thou/uL (0.0-0.7); #Lymphocytes 0.5 thou/uL (1.20-3.40); #Monocytes 0.2 thou/uL (0.11-0.59); #Neutrophils 1.7 thou/uL (1.40-6.50); %Eosinophils 2.4 % (0.0-10.0); %Monocytes 7.6 % (0.0-10.0); Hemoglobin 10.8 g/dL (14.0-18.0); Mean Corpuscular HGB CONC 33.3 g/dL (32.0-36.0); Mean Corpuscular Hemoglobin 30.4 pg (27.0-31.0); Mean Corpuscular Volume 91.3 fL (78.0-98.0); Mean Platelet Volume 7.4 fL (7.4-10.4); Platelet Count 116 thou/uL (130-400); Platelet Morphology Comment Appears Decreased; RBC Distribution Width 13.8 % (11.5-14.5); Red Blood Cell (RBC) Count 3.55 mill/uL (4.70-6.10); White Blood Cell (WBC) Count 2.4 thou/uL (4.8-10.8)
[2019-06-02] MEDS: hydrALAZINE 25 MG TAB PO SCH ×2 (09:42→16:16)
[2019-06-02] MEDS: Carvedilol 25 MG TAB PO SCH ×2 (09:42→16:16)
--- NOTE | 2019-06-02 10:58 | PRG ---
DATE OF SERVICE: 06/02/2019 SUBJECTIVE: Mr. 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 Initially, his PD catheter was not working. However, we noted fibrin in the PD fluid. Heparin was supplied to the patient's PD fluid. We were able to drain about 1.3 to 1.5 L of PD fluid. I feel that the PD now is functional. No complaints of chest pain or shortness of breath. I did instruct the patient how to use his PD regimen. No complaints of chest pain or shortness of breath. OBJECTIVE: VITAL SIGNS: Blood pressure 161/96, heart rate 69, respiratory rate 16, temperature 97.9, and pulse ox 96%. GENERAL: Awake, alert, and comfortable, not in distress. SKIN: Adequate turgor. HEENT: He has a pinkish conjunctivae. Anicteric sclerae. NECK: No neck mass. No carotid bruits. No JVD. CHEST: No deformities. LUNGS: Clear breath sounds. HEART: Normal sinus rhythm. No murmur. No gallops. No rubs. ABDOMEN: Globular, soft, and nontender. No masses. Positive for PD catheter. EXTREMITIES: No edema. He has IJ dialysis catheter as well as a left upper extremity AV fistula. MEDICATIONS: Medications of June 02, 2019, reviewed. LABORATORY DATA: Laboratories of June 02, 2019, white count 2.4 and hemoglobin 10.8. Sodium 139, potassium 4.2, chloride 104, carbon dioxide 21, BUN 60, creatinine 19.85, glucose 98, and calcium 9.1. ASSESSMENT AND PLAN: 1. End-stage renal disease, stable. Continue current CCPD regimen. I instructed the patient to use a 4.25% PD solution if ultrafiltration is not adequate. a. Overall, continue current CCPD regimen. 2. Borderline anemia. Continue to observe. The patient will follow up with the [facility] next week. Overall, agree with current management. Job ID: [id number]
[2019-06-02 12:21] VITALS: TEMP 98.1
--- NOTE | 2019-06-02 16:02 | ULT ---
LEFT UPPER EXTREMITY VENOUS DUPLEX ULTRASOUND INCLUDING COLOR AND SPECTRAL DOPPLER IMAGIN06/02/19 HISTORY: Left shoulder swelling and edema. Patient has a left sided fistula. The visualized internal jugular, subclavian, axillary, brachial, radial, and ulnar veins show phasic flow at all levels with normal compressibility and normal augmentation. Cephalic and basilic veins th at are visualized appear intact. Intact appearing dialysis fistula which appears patent. IMPRESSION: No evidence for deep venous thrombosis in the left upper extremity. POS: ARLEEN
[2019-06-02 16:18] VITALS: BP 155/104
[2019-06-02] MEDS: Acetaminophen 325 MG TAB PO PRN (16:21)
--- NOTE | 2019-06-03 16:26 | DIS ---
DATE OF ADMISSION: 05/31/2019 DATE OF DISCHARGE: 06/02/2019 DISCHARGE DISPOSITION: Home. FOLLOWUP: 1. Follow up with primary care physician, Dr. Estrada in 1 week. 2. Follow up with Nephrology, Dr. Causey in 1 week. ALLERGIES: THE PATIENT IS ALLERGIC TO PHENERGAN. DISCHARGE MEDICATIONS: Same as admission medication. No changes were made. INPATIENT CONSULT: Nephrology, Dr. Causey. BRIEF HOSPITAL COURSE: The patient is a 28-year-old male with lupus nephritis, recently started on peritoneal dialysis, presented to the emergency room with shortness of breath. He recently had a peritoneal catheter placed and had abdominal discomfort. His workup was consistent with peritoneal dialysis catheter malfunction. He was seen by Nephrology, Dr. Causey. He was started on lactulose to help reposition the peritoneal dialysis catheter. He tolerated peritoneal dialysis overnight. He also developed some swelling of his left neck. Left upper extremity Doppler was done, which was negative for DVT. Please note that the patient also has a dialysis catheter in the same area. He has been cleared by Nephrology for discharge. SIGNIFICANT LABORATORY DATA: Hemoglobin 10.8, hematocrit 32.4, and platelet 116. Sodium 139, potassium 4.2, chloride 104, bicarb 21, BUN 60, creatinine 19.85. FINAL DIAGNOSES: 1. Peritoneal dialysis catheter malfunction. 2. Volume overload secondary to #1. 3. Hypertension. 4. Seizure disorder. 5. Systemic lupus erythematosus. 6. History of lupus nephritis. 7. Anemia secondary to renal insufficiency. 8. Left upper extremity swelling. He will need an AV fistulogram as outpatient. 9. Thrombocytopenia. Repeat CBC as outpatient is recommended. Primary care physician advised to follow. 10. Chronic leukopenia. 11. The patient was seen and examined on the day of discharge. Denies any new complaints. No chest pain, shortness of breath, or palpitations reported. PLAN: Plan of care was discussed with the patient in detail. He stated understanding. Job ID: [id number]
== END 2019-06-02 16:57 | disposition home or self-care (01) | DRG 919 ==
LOC: ERS 18:22 → T4-B 20:39
PROVIDERS: ADMIT Internal Medicine; ATTEND Internal Medicine
PROC: 3E1M39Z Irrigation of Peritoneal Cavity using Dialysate, Percutaneous Approach (ICD-10-PCS; principal; 2019-05-31)
DX: T85.611A Breakdown (mechanical) of intraperitoneal dialysis catheter, initial encounter (principal); N18.6 End stage renal disease; I12.0 Hypertensive chronic kidney disease with stage 5 chronic kidney disease or end stage renal disease; Y83.8 Other surgical procedures as the cause of abnormal reaction of the patient, or of later complication, without mention of misadventure at the time of the procedure; E87.70 Fluid overload, unspecified; M32.14 Glomerular disease in systemic lupus erythematosus; G40.909 Epilepsy, unspecified, not intractable, without status epilepticus; D63.1 Anemia in chronic kidney disease; D69.6 Thrombocytopenia, unspecified; D72.819 Decreased white blood cell count, unspecified; Z99.2 Dependence on renal dialysis; Z90.49 Acquired absence of other specified parts of digestive tract; Z88.8 Allergy status to other drugs, medicaments and biological substances
CPT/HCPCS: 36415; 80048; 85025; 90945; 93005; G0257; J1644; J2997

== ENCOUNTER 2021-07-20 15:58 | Inpatient (IN) | payer MEDICAID, OTHER ==
[2021-07-20 17:16] LABS: #Lymphocytes 0.2 thou/uL (1.20-3.40); #Monocytes 0.1 thou/uL (0.11-0.59); #Neutrophils 1.8 thou/uL (1.40-6.50); %Eosinophils 0.4 % (0.0-10.0); %Lymphocytes 7.2 % (21.0-51.0); %Monocytes 5.5 % (0.0-10.0); %Neutrophils 86.9 % (42.0-75.0); Hemoglobin 8.6 g/dL (14.0-18.0); Mean Corpuscular Hemoglobin 31.7 pg (27.0-31.0); Mean Corpuscular Volume 95.8 fL (78.0-98.0); Mean Platelet Volume 9.4 fL (7.4-10.4); Platelet Count 73 thou/uL (130-400); RBC Distribution Width 12.6 % (11.5-14.5); Red Blood Cell (RBC) Count 2.73 mill/uL (4.70-6.10); White Blood Cell (WBC) Count 2.1 thou/uL (4.8-10.8)
[2021-07-20 17:50] LABS: Albumin 2.9 g/dL (3.5-5.0)
[2021-07-20 17:51] LABS: Chloride 93 mmol/L (98-107); Elliptocytes SLIGHT = 2-5 cells (100X) (0-1/hpf); MDiff Complete? YES; Platelet Morphology Comment Appears Decreased; Polychromasia SLIGHT = 2-3 cells (100X) (0-2/hpf); Potassium 6.5 mmol/L (3.5-5.1); Sodium 130 mmol/L (136-145)
[2021-07-20 17:52] LABS: Glucose 81 mg/dL (70-105)
[2021-07-20 17:53] LABS: Globulin 3.2 g/dL (2.4-3.5); Protein, Total 6.1 g/dL (6.0-8.3)
[2021-07-20 17:54] LABS: Bilirubin, Total 0.3 mg/dL (0.2-1.2); Carbon Dioxide 21 mmol/L (22-29)
[2021-07-20 17:55] LABS: Alkaline Phosphatase 68 U/L (40-110)
[2021-07-20 17:56] LABS: Calc. Creatinine Clearance 0 mL/min (70-130)
[2021-07-20 17:57] LABS: BUN (Urea Nitrogen) 79 mg/dL (8.9-20.6)
[2021-07-20 17:58] LABS: ALT (SGPT) Less than 7 U/L (8-55); AST (SGOT) 27 U/L (5-34)
[2021-07-20 18:10] LABS: Anion Gap 23 mmol/L (10-20)
[2021-07-20] MEDS ORDERED: Famciclovir 500 MG TAB PO SCH ×2 (19:00→23:00)
[2021-07-20] MEDS ORDERED: methylPREDNISolone Sod Succ/PF 125 MG/2 ML VIAL ONE (20:13)
[2021-07-20] MEDS ORDERED: Ondansetron PF 4 MG/2 ML Vial IVP PRN (20:14)
[2021-07-20] MEDS ORDERED: Acetaminophen 325 MG TAB PO PRN (20:14)
[2021-07-20] MEDS ORDERED: hydrALAZINE 20 MG/ML VIAL SLOW IVP PRN (20:23)
[2021-07-20 21:48] LABS: SARS-CoV-2 NAA Rapid Test Not Detected (NotDetected)
[2021-07-20 22:34] LABS: Troponin I 0.031 ng/mL (< 0.028)
[2021-07-21 00:02] LABS: Troponin I 0.015 ng/mL (< 0.028)
[2021-07-21] MEDS: Pantoprazole 40 MG VIAL IVP SCH ×3 (00:02→20:16)
[2021-07-21 00:36] VITALS: BMI 20.5
[2021-07-21 02:55] LABS: #Lymphocytes 0.1 thou/uL (1.20-3.40); #Monocytes 0.1 thou/uL (0.11-0.59); #Neutrophils 1.5 thou/uL (1.40-6.50); %Eosinophils 0.1 % (0.0-10.0); %Lymphocytes 5.2 % (21.0-51.0); %Monocytes 3.6 % (0.0-10.0); %Neutrophils 91.1 % (42.0-75.0); Hemoglobin 9.1 g/dL (14.0-18.0); Mean Corpuscular HGB CONC 32.7 g/dL (32.0-36.0); Mean Corpuscular Hemoglobin 31.1 pg (27.0-31.0); Mean Corpuscular Volume 95.3 fL (78.0-98.0); Mean Platelet Volume 9.8 fL (7.4-10.4); Platelet Count 74 thou/uL (130-400); RBC Distribution Width 12.7 % (11.5-14.5); Red Blood Cell (RBC) Count 2.92 mill/uL (4.70-6.10); White Blood Cell (WBC) Count 1.7 thou/uL (4.8-10.8)
[2021-07-21 03:10] LABS: Troponin I 0.036 ng/mL (< 0.028)
[2021-07-21 03:15] LABS: BUN (Urea Nitrogen) 41 mg/dL (8.9-20.6); Calc. Creatinine Clearance 9 mL/min (70-130); Calcium 8.9 mg/dL (7.8-10.44); Carbon Dioxide 23 mmol/L (22-29); Chloride 96 mmol/L (98-107); Glucose 144 mg/dL (70-105); Potassium 4.7 mmol/L (3.5-5.1); Sodium 135 mmol/L (136-145)
[2021-07-21 03:37] LABS: Anion Gap 23 mmol/L (10-20)
[2021-07-21] MEDS ORDERED: Epoetin (ESRD) 20,000 UNITS/ML SC SCH (09:00)
[2021-07-21] MEDS ORDERED: EPOETIN ALFA-EPBX (ESRD) 4,000 UNIT/ML VIAL SC SCH (09:00)
[2021-07-21] MEDS: Lidocaine Viscous Sol 2% 15 ml UD Cup SSP SCH ×3 (09:00→20:16)
[2021-07-21] MEDS ORDERED: Famciclovir 500 MG TAB PO SCH (09:00)
[2021-07-21] MEDS: predniSONE 20 MG TAB PO SCH (09:01)
[2021-07-21] MEDS: Famciclovir 500 MG TAB PO SCH (09:08)
[2021-07-21 11:53] LABS: Hemoglobin 8.7 g/dL (14.0-18.0)
[2021-07-21] MEDS ORDERED: HYDROcodone/Acetaminophen 5/325 mg Tablet PO PRN (14:27)
[2021-07-21 16:51] LABS: HIV (1/2) Antibody/Antigen Non-Reactive (NonReactive); HIV 1/2 INDEX 0.17 S/CO (<1.00); Hep C IgG Ab Non-Reactive (NonReactive); Syphilis Antibody Nonreactive (Nonreactive); Syphilis Antibody Index 0.13 S/CO (<1.00 Non-Reactive)
[2021-07-21] MEDS: Morphine 2 MG/ML VIAL SLOW IVP PRN (20:16)
[2021-07-22] MEDS: Morphine 2 MG/ML VIAL SLOW IVP PRN ×2 (03:44→21:11)
[2021-07-22 05:48] LABS: #Lymphocytes 0.1 thou/uL (1.20-3.40); #Monocytes 0.2 thou/uL (0.11-0.59); #Neutrophils 3.2 thou/uL (1.40-6.50); %Basophils 1.3 % (0.0-1.0); %Eosinophils 0.2 % (0.0-10.0); %Lymphocytes 3.6 % (21.0-51.0); Hemoglobin 8.1 g/dL (14.0-18.0); Mean Corpuscular HGB CONC 32.1 g/dL (32.0-36.0); Mean Corpuscular Hemoglobin 31.1 pg (27.0-31.0); Mean Corpuscular Volume 96.9 fL (78.0-98.0); Mean Platelet Volume 9.6 fL (7.4-10.4); Platelet Count 97 thou/uL (130-400); RBC Distribution Width 12.5 % (11.5-14.5); Red Blood Cell (RBC) Count 2.59 mill/uL (4.70-6.10); White Blood Cell (WBC) Count 3.6 thou/uL (4.8-10.8)
[2021-07-22 06:21] LABS: ALT (SGPT) Less than 7 U/L (8-55); AST (SGOT) 20 U/L (5-34); Albumin 2.8 g/dL (3.5-5.0); Alkaline Phosphatase 64 U/L (40-110); Anion Gap 19 mmol/L (10-20); BUN (Urea Nitrogen) 86 mg/dL (8.9-20.6); Bilirubin, Total 0.2 mg/dL (0.2-1.2); Calc. Creatinine Clearance 7 mL/min (70-130); Calcium 8.6 mg/dL (7.8-10.44); Carbon Dioxide 26 mmol/L (22-29); Chloride 95 mmol/L (98-107); Globulin 3.1 g/dL (2.4-3.5); Glucose 141 mg/dL (70-105); Potassium 5.3 mmol/L (3.5-5.1); Protein, Total 5.9 g/dL (6.0-8.3); Sodium 135 mmol/L (136-145)
[2021-07-22] MEDS: Lidocaine Viscous Sol 2% 15 ml UD Cup SSP SCH ×3 (08:55→21:10)
[2021-07-22] MEDS: Pantoprazole 40 MG VIAL IVP SCH ×2 (08:56→21:11)
[2021-07-22] MEDS: predniSONE 20 MG TAB PO SCH (08:57)
[2021-07-22] MEDS: Famciclovir 500 MG TAB PO SCH (08:57)
[2021-07-22] MEDS ORDERED: predniSONE 20 MG TAB PO SCH (09:00)
[2021-07-23 04:38] LABS: #Lymphocytes 0.2 thou/uL (1.20-3.40); #Monocytes 0.1 thou/uL (0.11-0.59); #Neutrophils 2.4 thou/uL (1.40-6.50); %Lymphocytes 8.1 % (21.0-51.0); %Monocytes 5.2 % (0.0-10.0); %Neutrophils 86.7 % (42.0-75.0); Hemoglobin 8.9 g/dL (14.0-18.0); Mean Corpuscular HGB CONC 31.5 g/dL (32.0-36.0); Mean Corpuscular Hemoglobin 30.6 pg (27.0-31.0); Mean Corpuscular Volume 97.1 fL (78.0-98.0); Mean Platelet Volume 9.1 fL (7.4-10.4); Platelet Count 111 thou/uL (130-400); RBC Distribution Width 12.7 % (11.5-14.5); Red Blood Cell (RBC) Count 2.91 mill/uL (4.70-6.10); White Blood Cell (WBC) Count 2.8 thou/uL (4.8-10.8)
[2021-07-23 04:58] LABS: ALT (SGPT) Less than 7 U/L (8-55); AST (SGOT) 20 U/L (5-34); Albumin 3.1 g/dL (3.5-5.0); Alkaline Phosphatase 71 U/L (40-110); Anion Gap 16 mmol/L (10-20); BUN (Urea Nitrogen) 57 mg/dL (8.9-20.6); Bilirubin, Total 0.3 mg/dL (0.2-1.2); Calc. Creatinine Clearance 10 mL/min (70-130); Carbon Dioxide 30 mmol/L (22-29); Chloride 97 mmol/L (98-107); Globulin 3.4 g/dL (2.4-3.5); Glucose 122 mg/dL (70-105); Potassium 4.6 mmol/L (3.5-5.1); Protein, Total 6.5 g/dL (6.0-8.3); Sodium 138 mmol/L (136-145)
[2021-07-23] MEDS ORDERED: predniSONE 20 MG TAB PO SCH (08:00)
[2021-07-23] MEDS: Lidocaine Viscous Sol 2% 15 ml UD Cup SSP SCH (08:39)
[2021-07-23] MEDS: Pantoprazole 40 MG VIAL IVP SCH (08:40)
[2021-07-23] MEDS: Famciclovir 500 MG TAB PO SCH (08:40)
[2021-07-23 11:49] VITALS: BP 129/76; TEMP 97.6
[2021-07-24 07:16] LABS: CMV IgG AB Greater than 10.00 U/mL (0.00-0.59)
[2021-07-24 09:40] LABS: Hep B Surface AG-Rflx Sendout Negative (Negative); Hepatitis B Core Total Negative (Negative); Hepatitis B Surface AB-Sendout Reactive (.)
[2021-07-25 01:36] LABS: HSV 1 DNA, Oropharynx Negative (Negative); HSV 2 DNA, Oropharynx Negative (Negative)
== END 2021-07-23 13:31 | disposition home or self-care (01) | DRG 545 ==
LOC: ERS 15:58 → ERHOLD 19:15 → 2NO 22:28
PROVIDERS: ADMIT Internal Medicine; ATTEND Family Medicine
PROC: 5A1D70Z Performance of Urinary Filtration, Intermittent, Less than 6 Hours Per Day (ICD-10-PCS; principal; 2021-07-20)
DX: M32.9 Systemic lupus erythematosus, unspecified (principal); N18.6 End stage renal disease; E87.1 Hypo-osmolality and hyponatremia; K92.1 Melena; D62 Acute posthemorrhagic anemia; N25.81 Secondary hyperparathyroidism of renal origin; I13.2 Hypertensive heart and chronic kidney disease with heart failure and with stage 5 chronic kidney disease, or end stage renal disease; E87.5 Hyperkalemia; G40.909 Epilepsy, unspecified, not intractable, without status epilepticus; K13.70 Unspecified lesions of oral mucosa; D69.6 Thrombocytopenia, unspecified; I50.9 Heart failure, unspecified; R13.10 Dysphagia, unspecified; A08.4 Viral intestinal infection, unspecified; K12.1 Other forms of stomatitis; D63.1 Anemia in chronic kidney disease; Z90.49 Acquired absence of other specified parts of digestive tract; Z99.2 Dependence on renal dialysis; Z88.8 Allergy status to other drugs, medicaments and biological substances; Z79.899 Other long term (current) drug therapy
CPT/HCPCS: 36415; 36416; 71045; 80048; 80053; 82274; 84145; 84484; 85025; 85652; 86140; 86644; 86645; 86704; 86705; 86706; 86707; 86780; 86803; 87040; 87045; 87046; 87081; 87340; 87350; 87389; 87427; 87449; 87529; 90935; 93005; 93306; 96374; C9113; G0257; J2270; J2930; J7512; Q5105; U0002

== ENCOUNTER 2023-02-24 08:36 | Emergency (ER) | payer OTHER ==
[2023-02-24 09:37] LABS: #Basophils 0.1 thou/uL (0.0-0.2); #Lymphocytes 0.5 thou/uL (1.20-3.40); #Monocytes 0.4 thou/uL (0.11-0.59); #Neutrophils 4.7 thou/uL (1.40-6.50); %Basophils 1.6 % (0.0-1.0); %Eosinophils 0.5 % (0.0-10.0); %Lymphocytes 7.9 % (21.0-51.0); %Monocytes 6.9 % (0.0-10.0); %Neutrophils 83.1 % (42.0-75.0); Hemoglobin 11.2 g/dL (14.0-18.0); Mean Corpuscular HGB CONC 30.8 g/dL (32.0-36.0); Mean Corpuscular Hemoglobin 28.6 pg (27.0-31.0); Mean Corpuscular Volume 92.9 fl (78.0-98.0); Mean Platelet Volume 8.4 fL (7.4-10.4); Platelet Count 144 10x3/uL (130-400); RBC Distribution Width 11.6 % (11.5-14.5); Red Blood Cell (RBC) Count 3.93 mill/uL (4.70-6.10); White Blood Cell (WBC) Count 5.6 10x3/uL (4.8-10.8)
[2023-02-24 09:59] LABS: ALT (SGPT) 9 U/L (8-55); AST (SGOT) 13 U/L (5-34); Albumin 4.1 g/dL (3.5-5.0); Alkaline Phosphatase 121 U/L (40-110); Anion Gap 17 mmol/L (10-20); BUN (Urea Nitrogen) 34 mg/dL (8.9-20.6); Bilirubin, Total 0.4 mg/dL (0.2-1.2); Calc. Creatinine Clearance 0 mL/min (70-130); Carbon Dioxide 17 mmol/L (22-29); Chloride 106 mmol/L (98-107); Estimated GFR 57; Globulin 2.9 g/dL (2.4-3.5); Glucose 89 mg/dL (70-105); Potassium 5.2 mmol/L (3.5-5.1); Sodium 135 mmol/L (136-145)
[2023-02-24] MEDS ORDERED: Morphine 4 MG/ML VIAL ONE (10:20)
[2023-02-24] MEDS ORDERED: Acetaminophen 500 MG TAB ONE (11:32)
[2023-02-24] MEDS ORDERED: Morphine 2 MG/ML VIAL ONE (11:32)
== END 2023-02-24 12:05 | disposition home or self-care (01) ==
LOC: ERS 08:36
DX: M25.532 Pain in left wrist (principal)
CPT/HCPCS: 36415; 80053; 85025; 93005; 96374; 96376; J2270; J2272